=== PATIENT | male | born 1945 | race Caucasian/White ===

== ENCOUNTER 2017-01-10 09:34 | Inpatient (IN) | payer MEDICARE ==
[2017-01-10] VITALS (12 sets, daily range): BP systolic 70–140; BP diastolic 0–81
[~2017-01-10] VITALS: Ht 175.3 cm; Wt 116.1 kg
--- NOTE | ~2017-01-10 | PR ---
[place], [place] PROGRESS NOTE NAME: ISAAC FRANKLIN ACC #: [id number] UNIT #: [id number] ROOM: [facility] DOCTOR: GABRIELLA AGUIRRE MD BIRTHDATE: [birth year] DOS: 01/11/2017 CARDIOLOGY PROGRESS NOTE REASON FOR VISIT: Bradycardia and hypotension. SUBJECTIVE: The patient is feeling better. His blood pressures and heart rates are stable. Currently off his IV fluids and inotropic therapy. He denies any chest pain, dizziness or palpitations. No orthopnea. No fever and chills. No nausea, vomiting. No headaches. REVIEW OF SYSTEMS: Review of the 8 systems negative except as described above. PHYSICAL EXAMINATION: VITAL SIGNS: Blood pressure 150/87, pulse , respiratory rate is 14. GENERAL: Alert, comfortable, in no acute distress. HEENT: Pupils are round, equal. No jaundice. Tongue was moist and pharynx was clear. NECK: Supple, no distended neck veins, no carotid bruit. CHEST: Symmetrical, nontender. LUNGS: Clear to auscultation bilaterally. HEART: Regular rhythm, no S3. ABDOMEN: Benign, nontender. Bowel sounds normal. EXTREMITIES: Showed no edema. Distal pulses are palpable. SKIN: Warm and dry. No cyanosis, no clubbing. REVIEW OF DIAGNOSTIC TESTS: His labs and medications reviewed. His TSH 1.15. IMPRESSION: 1. Sinus bradycardia, resolved. Possibly due to his beta blockers. 2. Hypotension, possibly due to his overmedication, resolved. 3. Acute renal failure, improving. 4. Anemia. 5. Thrombocytopenia. RECOMMENDATIONS: 1. We will discontinue his Coreg which is his home medication. 2. We will start low dose Diovan and a low dose hydrochlorothiazide and monitor heart rates and blood pressures. 3. His blood pressures and heart rates are stable, he can be discharged home tomorrow and we will follow him in our office in 2-3 weeks. [place], [place] PROGRESS NOTE NAME: ISAAC FRANKLIN UNIT #: [id number] ROOM: [facility] DOCTOR: GABRIELLA AGUIRRE MD BIRTHDATE: [birth year] GABRIELLA AGUIRRE MD CM:PNTIM [id number] GABRIELLA AGUIRRE MD 01/13/17 0534 interface
--- NOTE | ~2017-01-10 | CON ---
[place], [place] REPORT OF CONSULTATION NAME: ISAAC FRANKLIN UNIT #: [id number] ROOM: [facility] DOCTOR: GABRIELLA AGUIRRE MD BIRTHDATE: [birth year] DOS: 01/10/2017 CARDIOLOGY CONSULTATION REASON FOR CONSULTATION: Bradycardia and hypotension. CLINICAL HISTORY: The patient is a 71-year-old gentleman with history of hypertension, diabetes, obstructive sleep apnea, came to the Emergency Room with dizziness and some unsteadiness of the feet. His blood pressure medications have been adjusted for his blood pressure control, a month ago he noted similar unsteadiness and dizziness, but no syncope. He was found to be significantly hypotensive and bradycardic in the Emergency Room and he was given IV fluids and was admitted to the hospital and the Cardiology was consulted. He denies any chest pain or palpitations. No syncope. No fever or chills. No cough or hemoptysis. No nausea, vomiting or diarrhea. No tingling, numbness or weakness. No headaches. No joint tenderness or swelling. REVIEW OF SYSTEMS: Review of the 8 systems negative except as mentioned above. PAST MEDICAL HISTORY: 1. Hypertension. 2. Diabetes type 2. 3. Gout. 4. Dyslipidemia. 5. Idiopathic thrombocytopenia. 6. Obstructive sleep apnea. 7. PTSD. 8. Benign prostatic hypertrophy. PAST SURGICAL HISTORY: 1. History of bilateral knee replacement. 2. Lumbar laminectomy. 3. Cataract surgery. 4. Repair of the left rotator cuff. SOCIAL HISTORY: The patient does not drink or smoke. Does not use illicit drugs. FAMILY HISTORY: Mother in her 80s from myocardial infarction. Brother has a myocardial infarction in his 50s. Father had a cancer and in his 80s. ALLERGIES: No known drug allergies. HOME MEDICATIONS: Reviewed. PHYSICAL EXAMINATION: VITAL SIGNS: Blood pressure 108/69, pulse ____, respiratory rate of 14. GENERAL: Alert, comfortable, in no acute distress. HEENT: Pupils are round and equal. No jaundice. Tongue was dry and pharynx [place], [place] REPORT OF CONSULTATION NAME: ISAAC FRANKLIN UNIT #: [id number] ROOM: [facility] DOCTOR: GABRIELLA AGUIRRE MD BIRTHDATE: [birth year] was also dry. NECK: Supple, no distended neck veins, no carotid bruits. Thyroid is not palpable. CHEST: Symmetrical, nontender. LUNGS: Clear to auscultation bilaterally. HEART: Regular rhythm. No S3. Grade 1/6 systolic murmur. No palpable thrills. ABDOMEN: Obese, nontender. Bowel sounds normal. EXTREMITIES: Showed trace edema. Distal pulses are palpable. SKIN: Warm and dry. NEUROLOGIC: The patient is alert, oriented. No focal neurologic deficit. RECTAL: Deferred. GENITOURINARY: Deferred. REVIEW OF DIAGNOSTIC TESTS: EKG showed normal sinus rhythm, rate of 44. His labs, CBC, chemistry reviewed. IMPRESSION: 1. Symptomatic bradycardia, possibly due to medications. 2. Mild hypotension, possibly due to medications. 3. Anemia. 4. Thrombocytopenia. 5. Morbid obesity. 6. Diabetes type 2. 7. Acute renal insufficiency. RECOMMENDATIONS: 1. Continue IV fluids. 2. Check his TSH to rule out hypothyroidism. 3. Check 2D echo for LV function and valvular function. 4. Hold his Diovan and head CT and we will raise them as his blood pressure tolerates. 5. Wean IV dopamine as his blood pressure tolerates. 6. Consider outpatient stress test when he is stable. 7. Risk factor modification for diet, exercise, weight loss discussed. 8. Once he is weaned off the IV Cardizem and heart rate and blood pressure are stable, resume low-dose Diovan and hydrochlorothiazide. 9. Possible discharge in next 24-48 hours. [place], [place] REPORT OF CONSULTATION NAME: RIGOBERTOISAAC Varsha UNIT #: [id number] ROOM: [facility] DOCTOR: GABRIELLA AGUIRRE MD BIRTHDATE: [birth year] GABRIELLA AGUIRRE MD CM:CONSTR:REPORT OF CONSULTATION 1145 01/11/17 548 interface
[~2017-01-10 09:34] MED LIST: ALBUTEROL0.09 MG/A2 INH; ALLOPURINOL100 MG PO; ALPHA LIPOIC A200 MG PO; ALPHA LIPOIC300 MG; ANTIVERT/2525 MG PO; APRESOLINE10 MG PO; ASPI-COR81 M1 PO; ASPIRIN325 M2 PO; ASPIRIN325 MG PO; AUGMENTIN 875875 MG PO; CARBIDOPA/LEVOD1 TA1 PO; CARVEDILOL12.5 MG PO; CARVEDILOL25 MG PO; CLONIDINE HCL0.2 MG PO; CLONIDINE0.2 MG; CLONIDINE0.2 MG PO; DAYPRO600 M1 PO; DICLOFENAC SOD75 MG PO; DIOVAN HCT 12.51 TA1 PO; DIOVAN160 M2 PO; DIOVAN320 MG; ENDOCET 650 MG-1 TAB; FISH OIL1000 MG; FLOMAX0.4 MG PO; FOLIC ACID800 MCG PO; Flovent 220 M220 MCG INH; GABAPENTIN100 M1; GABAPENTIN100 M2 PO; GLIPIZIDE2.5 MG PO; GLIPIZIDE5 MG PO; GUAFENESIN400 MG PO; Glimepiride1 MG PO; HYDR12.5C PO; HYDRALAZINE10 MG PO; HYDROCHLOROTHIA25 M1 PO; HYDROCHLOROTHIA25 MG; HYDROCODONE BIT1 T11 PO; LIPITOR80 MG PO; MELATONIN3 MG PO; NEURONTIN100 MG PO; OXYCODONE AND A1 TA3 PO; PERCOCET 325 MG1 TA2 PO; PREDNISONE10 MG PO; PREDNISONE50 MG PO; SERTRALINE HCL100 MG PO; SERTRALINE HYD100 MG PO; SERTRALINE HYDR50 MG PO; SIMVASTATIN40 MG; SIMVASTATIN80 MG PO; SPIRIVA RESPIMAT4 GM INH; SPIRIVA18 MCG PO; SYMBICORT1 AE1 INH; TRAZADONE HYDR100 MG PO; VENTOLIN H0.09 MG/AC INH; VIBRAMYCIN100 MG PO; VICODIN 5/500 505 MG PO; VICODIN 500 MG-1 TAB PO; VISTARIL25 MG PO; VITAMIN C1000 M2 PO; ZOCOR40 MG PO; ZOCOR80 MG PO; ZOFRAN ODT8 MG PO; ZYLOPRIM100 MG PO
[2017-01-10 10:15] LABS: BASO % 0.3 % (0.0-1.0); EOS # 0.1 10*3/uL (0.0-0.4); EOS % 1.3 % (1.0-4.0); HEMATOCRIT 37.9 % (42.0-52.0); HEMOGLOBIN 12.8 g/dl (14.0-18.0); LYMPH # 2.2 10*3/uL (1.3-4.4); LYMPH % 34.2 % (27.0-41.0); MEAN CELL VOLUME 92.7 fl (80.0-94.0); MEAN CORPUSCULAR HGB 31.3 pg (27.0-31.0); MEAN CORPUSCULAR HGB CONC 33.8 g/dl (33.0-37.0); MEAN PLATELET VOLUME 11.5 fl (9.6-12.3); MONO # 0.4 10*3/uL (0.1-1.0); NEUT # 3.7 10*3/uL (2.3-7.9); NEUT % 57.7 % (47.0-73.0); PLATELET COUNT AUTOMATED 112 10*3/uL (130-400); RED BLOOD COUNT 4.09 10*6/uL (4.50-5.90); RED CELL DISTRI WIDTH 13.3 % (0-14.5); WHITE BLOOD COUNT 6.3 10*3/uL (4.8-10.8)
[2017-01-10 10:25] LABS: INTERNATIONAL NORM RATIO 0.9 (2.0-3.5)
[2017-01-10 10:42] LABS: ALBUMIN 2.9 gm/dl (3.1-4.5); ALKALINE PHOSPHATASE 73 U/L (45-117); BILIRUBIN, TOTAL 1.2 mg/dl (0.2-1.0); BUN 33 mg/dl (7-24); CARBON DIOXIDE 30 mmol/L (21-32); CHLORIDE 99 mmol/L (98-107); CKMB 0.9 ng/ml (0.5-3.6); CPK 76 U/L (39-308); EST GLOM FILT AFRICAN AMERICAN 57 ml/min; GLUCOSE 327 mg/dL (65-99); MAGNESIUM 2.2 mg/dL (1.5-2.1); POTASSIUM 4.3 mmol/L (3.5-5.1); SGOT/AST 29 IU/L (3-35); SGPT/ALT 13 U/L (12-78); SODIUM 136 mmol/L (136-145); TOTAL PROTEIN 5.7 gm/dL (6.4-8.2)
[2017-01-10 10:43] LABS: C-REACTIVE PROTEIN < 0.29 MG/DL (0-0.3); TROPONIN I < 0.015 ng/ml (<0.045)
[2017-01-10] MEDS ORDERED: DIOVAN160 M2 PO (12:48)
[2017-01-10] MEDS ORDERED: Albuterol Sulfat3 ML INH (12:52)
[2017-01-11] VITALS (7 sets, daily range): BP systolic 101–156; BP diastolic 61–91
[2017-01-11 06:07] LABS: BASO % 0.2 % (0.0-1.0); EOS # 0.1 10*3/uL (0.0-0.4); EOS % 1.8 % (1.0-4.0); HEMATOCRIT 39.7 % (42.0-52.0); HEMOGLOBIN 13.2 g/dl (14.0-18.0); LYMPH # 1.3 10*3/uL (1.3-4.4); LYMPH % 24.7 % (27.0-41.0); MEAN CELL VOLUME 91.9 fl (80.0-94.0); MEAN CORPUSCULAR HGB 30.6 pg (27.0-31.0); MEAN CORPUSCULAR HGB CONC 33.2 g/dl (33.0-37.0); MEAN PLATELET VOLUME 10.4 fl (9.6-12.3); MONO # 0.4 10*3/uL (0.1-1.0); MONO % 7.2 % (3.0-9.0); NEUT # 3.6 10*3/uL (2.3-7.9); NEUT % 65.7 % (47.0-73.0); PLATELET COUNT AUTOMATED 98 10*3/uL (130-400); RED BLOOD COUNT 4.32 10*6/uL (4.50-5.90); RED CELL DISTRI WIDTH 13.3 % (0-14.5); WHITE BLOOD COUNT 5.4 10*3/uL (4.8-10.8)
[2017-01-11 06:37] LABS: ALBUMIN 3.1 gm/dl (3.1-4.5); BILIRUBIN, TOTAL 1.3 mg/dl (0.2-1.0); CARBON DIOXIDE 28 mmol/L (21-32); CHLORIDE 105 mmol/L (98-107); EST GLOM FILT AFRICAN AMERICAN > 60 ml/min; GLUCOSE 105 mg/dL (65-99); MAGNESIUM 2.1 mg/dL (1.5-2.1); PHOSPHOROUS 3.4 mg/dL (2.5-4.9); POTASSIUM 4.1 mmol/L (3.5-5.1); SGOT/AST 15 IU/L (3-35); SGPT/ALT 8 U/L (12-78); SODIUM 143 mmol/L (136-145); TOTAL PROTEIN 5.7 gm/dL (6.4-8.2)
[2017-01-11 06:46] LABS: ALKALINE PHOSPHATASE 73 U/L (45-117)
[2017-01-11 06:51] LABS: BUN 20 mg/dl (7-24)
[2017-01-11 07:03] LABS: INTERNATIONAL NORM RATIO 0.9 (2.0-3.5)
[2017-01-12] VITALS: BP 133/83
[2017-01-12 04:00] VITALS: BP 142/75
[2017-01-12 06:05] LABS: BUN 18 mg/dl (7-24); CARBON DIOXIDE 32 mmol/L (21-32); CHLORIDE 101 mmol/L (98-107); EST GLOM FILT AFRICAN AMERICAN > 60 ml/min; GLUCOSE 133 mg/dL (65-99); POTASSIUM 3.9 mmol/L (3.5-5.1); SODIUM 142 mmol/L (136-145)
[2017-01-12 06:06] LABS: BASO % 0.3 % (0.0-1.0); EOS # 0.1 10*3/uL (0.0-0.4); EOS % 1.6 % (1.0-4.0); HEMATOCRIT 40.3 % (42.0-52.0); HEMOGLOBIN 13.5 g/dl (14.0-18.0); LYMPH # 2.1 10*3/uL (1.3-4.4); LYMPH % 33.9 % (27.0-41.0); MEAN CELL VOLUME 92.4 fl (80.0-94.0); MEAN CORPUSCULAR HGB CONC 33.5 g/dl (33.0-37.0); MEAN PLATELET VOLUME 10.7 fl (9.6-12.3); MONO # 0.5 10*3/uL (0.1-1.0); MONO % 7.8 % (3.0-9.0); NEUT # 3.5 10*3/uL (2.3-7.9); NEUT % 56.1 % (47.0-73.0); PLATELET COUNT AUTOMATED 110 10*3/uL (130-400); RED BLOOD COUNT 4.36 10*6/uL (4.50-5.90); RED CELL DISTRI WIDTH 13.2 % (0-14.5); WHITE BLOOD COUNT 6.3 10*3/uL (4.8-10.8)
[2017-01-12 08:00] VITALS: BP 131/87
[2017-01-12] MEDS ORDERED: HYDR12.5C PO (09:34)
[2017-01-12] MEDS ORDERED: VALSARTAN80 MG PO (09:34)
== END 2017-01-12 10:44 | disposition home or self-care (01) | DRG 314 ==
LOC: ED 09:34 → EDHOLD 11:20 → ICCU 11:20
PROVIDERS: Emergency Medicine; Hospitalist; Student in an Organized Health Care Education/Training Program
DX: I95.9 Hypotension, unspecified (principal); N17.0 Acute kidney failure with tubular necrosis; E44.0 Moderate protein-calorie malnutrition; E11.49 Type 2 diabetes mellitus with other diabetic neurological complication; D69.6 Thrombocytopenia, unspecified; E66.01 Morbid (severe) obesity due to excess calories; E86.0 Dehydration; D64.9 Anemia, unspecified; R00.1 Bradycardia, unspecified; Z96.653 Presence of artificial knee joint, bilateral; M10.9 Gout, unspecified; F43.10 Post-traumatic stress disorder, unspecified; I10 Essential (primary) hypertension; F32.9 Major depressive disorder, single episode, unspecified; N40.0 Benign prostatic hyperplasia without lower urinary tract symptoms; G47.33 Obstructive sleep apnea (adult) (pediatric); E78.5 Hyperlipidemia, unspecified; Z98.49 Cataract extraction status, unspecified eye; Z82.49 Family history of ischemic heart disease and other diseases of the circulatory system; Z80.9 Family history of malignant neoplasm, unspecified; Z79.51 Long term (current) use of inhaled steroids; Z79.899 Other long term (current) drug therapy; Z68.36 Body mass index [BMI] 36.0-36.9, adult; T50.905A Adverse effect of unspecified drugs, medicaments and biological substances, initial encounter

== ENCOUNTER → 2017-01-24 | Outpatient (CLI) | payer MEDICARE ==
[~2017-01-24] MED LIST changes: +Albuterol Sulfat3 ML INH; +VALSARTAN80 MG PO
== END | disposition home or self-care (01) ==
LOC: LAB 12:42
DX: R53.83 Other fatigue (principal)

== ENCOUNTER 2017-01-29 23:23 | Inpatient (IN) | payer MEDICARE ==
[~2017-01-29] VITALS: Ht 175.3 cm; Wt 107.2 kg
--- NOTE | ~2017-01-29 | PR ---
[place], [place] PROGRESS NOTE NAME: [facility]AAC FRANKLIN [id number] UNIT #: [id number] ROOM: 416 DOCTOR: DENIS NGUYỄN MD,TEJINDER BIRTHDATE: [birth year] DOS: 01/31/2017 PULMONARY PROGRESS NOTE SUBJECTIVE: The patient has been noted comfortable at this time, sitting on the bed and noted marked improvement to the respiratory symptoms in last 24 hours with resolution of wheezing, coughing and shortness of breath. OBJECTIVE: VITAL SIGNS: Shows normal temperature this morning, respiratory rate 20, heart rate 87, blood pressure 137/89. Pulse oxygen saturation recorded on 2 L nasal cannula 94% saturation. HEENT: Chronic obesity. NECK: Supple. CARDIOVASCULAR: S1, S2 audible. LUNGS: Noted with minimal wheezing, no crackles. ABDOMEN: Soft, nontender. IMPRESSION: The patient with resolving acute exacerbation of bronchial asthma, most likely viral bronchitis. Possibility of allergen induced exacerbation of bronchial asthma has been considered as well. PLAN OF TREATMENT: The patient could be discharged home on tapering dose of prednisone, would not require any antibiotics. Other previous treatment plan to be continued as well. Usual care, other supportive therapy, plan of management and care. TEJINDER BARRIOS MD CM:PNTRANS [id number] TEJINDER NGUYỄN MD 02/01/17213 interface
--- NOTE | ~2017-01-29 | CON ---
[place], [place] REPORT OF CONSULTATION NAME: ISAAC FRANKLIN [facility] #: [id number] UNIT #: [id number] ROOM: 416 DOCTOR: DENIS NGUYỄN MDTEJINDER BIRTHDATE: [birth year] DOS: 01/30/2017 Consultation requested by the hospitalist services. REASON FOR CONSULTATION: Assess the patient for acute exacerbation of bronchial asthma. HISTORY OF PRESENT ILLNESS: A 71-year-old male who has been known to me from the past, has been noted frequent hospitalization in the last 3 months. The patient has been treated in this hospital in 12/2016, remained in the hospital from 01/10/2017 until 01/12/2017. The patient has been admitted to the hospital and managed for bradyarrhythmias with acute kidney injury and dehydration. The patient was treated and discharged home asymptomatic. The patient stated that he has been noted in the usual state of health until yesterday when he started with sudden onset of increased coughing with chest congestion and wheezing as well as shortness of breath. He came into the Emergency Room for further assessment. He denies symptoms of chest pain. Denies any symptoms of chest trauma. The patient has used his breathing treatment to help resolve the symptoms, but they did not work to resolve his respiratory status. He stated that he has been taking all of the previous prescription medications on a regular basis. REVIEW OF SYSTEMS: CONSTITUTIONAL: He does have symptoms of fatigue and tiredness. Denies symptoms of fever or chills. EYES: Denies any burning, redness, or tenderness. EARS, NOSE, THROAT: No sore throat, hoarseness, otalgia, postnasal drainage. CARDIOVASCULAR: Denies anginal pain, edema of the lower extremities or palpitations. GASTROINTESTINAL: Denies dysphagia, nausea, vomiting, diarrhea, abdominal pain, hematemesis, melena, or hematochezia. GENITOURINARY: Denies dysuria, suprapubic pain, hematuria. SKIN: No ulcers. No lesions or rashes. CENTRAL NERVOUS SYSTEM: Denies dizziness, headache, diplopia, seizures, syncopal episode. MUSCULOSKELETAL: Denies acute joint pain, redness, or tenderness. Remaining systems were reviewed. They were noted all negative. PAST MEDICAL HISTORY: 1. History of uncomplicated severe persistent bronchial asthma. 2. Chronic obesity. 3. Obstructive sleep apnea disorder diagnosed in 2012, currently being in the process of reassessment and management of sleep apnea. The patient with a sleep study pending to be done on 02/09/2017. 4. History of chronic obesity. 5. Coronary artery disease. 6. Essential hypertension. 7. Hyperlipidemia. 8. Past history of transient ischemic attack. 9. PTSD. [place], [place] REPORT OF CONSULTATION NAME: ISAAC FRANKLIN UNIT #: [id number] ROOM: 416 DOCTOR: DENIS NGUYỄN MD,TEJINDER BIRTHDATE: [birth year] 10. TIA. 11. Degenerative arthritis. 12. Allergic rhinitis. 13. Restless leg syndrome. SOCIAL HISTORY: The patient is , lifetime nonsmoker. Denies alcohol or illicit drug use at home, does not have any pets at home as well. PAST SURGICAL HISTORY: 1. Therapy bronchoscopy in 10/2016. 2. Cardiac catheterization. 3. Removal of the heel spur. 4. Bilateral total knee replacement, acute cervical fusion. 5. Lumbar laminectomy. FAMILY HISTORY: Noted for diabetes, coronary artery disease, and hypertension. MEDICATIONS: The medications which have been listed from home for the patient at the time of admission noted use of; 1. Ventolin HFA inhaler, albuterol sulfate 2.5 mg nebulizer 4 times a day p.r.n. for shortness of breath. 2. Fluticasone one spray each nostril daily. 3. Zyloprim 100 mg daily. 4. Aspirin 325 mg p.o. daily. 5. Levodopa, carbidopa at bedtime for the restless leg syndrome. 6. Coreg 6.25 mg p.o. b.i.d. 7. Neurontin 300 mg p.o. t.i.d. 8. Glipizide 2.5 mg p.o. b.i.d. 9. Hydrochlorothiazide 12.5 mg daily. 10. Sertraline daily. 11. Simvastatin 40 mg daily. 12. Flomax 0.4 mg at bedtime. 13. Valsartan 80 mg daily. 14. Singulair 10 mg daily. 15. Spiriva Respimat 1.25 mcg 2 inhalations daily. 16. Symbicort 160/4.5 two puffs b.i.d. DRUG ALLERGIES: No known drug allergies. PHYSICAL EXAMINATION: GENERAL: This is a 71-year-old white male who has been noted currently awake and alert without any distress. Height of 5 feet 9 inches, weight of 236 pounds. The BMI noted 34.9. VITAL SIGNS: Shows a normal temperature, respiratory rate of 20-28, heart rate 100-96, blood pressure 131/87-126/98. The pulse oxygen saturation of the patient recorded on 2 liters nasal cannula 93% saturation. HEENT: Examination shows head was atraumatic. Eyes nonicterus. NECK: Supple. CARDIOVASCULAR: S1, S2 audible. LUNGS: Diffuse expiratory wheezing, no crackles. [place], [place] REPORT OF CONSULTATION NAME: ISAAC FRANKLIN UNIT #: [id number] ROOM: [facility] DOCTOR: DENIS NGUYỄN MD,TEJINDER BIRTHDATE: [birth year] ABDOMEN: Soft. Moderate obesity, bowel sounds present. EXTREMITIES: Show no edema, clubbing, cyanosis. CENTRAL NERVOUS SYSTEM: Cranial nerves 2 through 12 intact. No focal deficit. MUSCULOSKELETAL: No deformities. SKIN: No lesions or rashes. LABORATORY DATA: CBC: WBC count 7.7, hemoglobin 13.7, hematocrit 39.6, platelet count were normal at 0.8% eosinophils. The lactic acid noted as 1.6. CMP of the patient was noted normal BUN and creatinine. Glucose 182. Remaining CK-MB and troponin for the patient were normal. The BMP of the patient's glucose 273 this morning, BUN and creatinine remains normal. Other electrolytes grossly normal. PT/PTT was normal this morning. CK-MB and troponin additional sets were noted normal. The chest x-ray 01/29/2017, the patient does not show any acute pulmonary infiltration or other abnormalities. IMPRESSION: 1. The patient who had been currently noted with recurrent acute exacerbation of bronchial asthma with unknown triggering effect. The possible consideration of aspirin sensitivity. The patient would be kept in consideration as well. 2. Possible exposure to some environmental allergens required further assessment as well. 3. Acute bronchitis of the patient noted whether virus or bacterial origin at this time was unknown. 4. Obstructive sleep apnea disorder, which has not been treated so far as the patient has not been able to get any equipment from the [facility] with reassessment was noted in progress in my office. 5. Frequent hospitalization. 6. Recent hospitalization bradycardia and acute dehydration with volume contraction and the renal failure, which has been noted currently resolved. PLAN OF TREATMENT: The patient has been getting IV Solu-Medrol for the patient that will be continued at the current dose of Solu-Medrol 60 mg q.8 hours, gradual reduction. Manage the respiratory symptoms for this patient based on the progression of the illness. Ordered IgE level for the patient for assessment of any allergy blurred. Discontinue the heparin for the patient at this time as well. Continuation of the other previous treatment plan of management. Addition of Singulair to the treatment, which has not been listed on his current medications list. Also, start the patient Dulera as an alternate to the Symbicort HFA inhaler. Further treatment changes will be done based on the progression of the illness. [place], [place] REPORT OF CONSULTATION NAME: ISAAC FRANKLIN UNIT #: [id number] ROOM: [facility] DOCTOR: TEJINDER PYLE MD BIRTHDATE: [birth year] TEJINDER BARRIOS MD CM:CONSTR:REPORT OF CONSULTATION 1354 01/31/17 0409 interface
[2017-01-29 23:29] VITALS: BP 146/110
[2017-01-29] MEDS ORDERED: VENTOLIN H0.09 MG/AC INH (23:36)
[2017-01-29] MEDS ORDERED: COREG6.25 MG PO (23:37)
[2017-01-29] MEDS ORDERED: FLUTICASON0.05 MG/AC NAS (23:40)
[2017-01-29] MEDS ORDERED: GLIPIZIDE XL2.5 M1 PO (23:41)
[2017-01-30] LABS: BASO % 0.3 % (0.0-1.0); EOS # 0.1 10*3/uL (0.0-0.4); EOS % 0.8 % (1.0-4.0); HEMATOCRIT 39.6 % (42.0-52.0); HEMOGLOBIN 13.7 g/dl (14.0-18.0); LYMPH # 2.6 10*3/uL (1.3-4.4); LYMPH % 33.2 % (27.0-41.0); MEAN CELL VOLUME 89.8 fl (80.0-94.0); MEAN CORPUSCULAR HGB 31.1 pg (27.0-31.0); MEAN CORPUSCULAR HGB CONC 34.6 g/dl (33.0-37.0); MONO # 0.8 10*3/uL (0.1-1.0); MONO % 9.7 % (3.0-9.0); NEUT # 4.3 10*3/uL (2.3-7.9); NEUT % 55.5 % (47.0-73.0); PLATELET COUNT AUTOMATED 158 10*3/uL (130-400); RED BLOOD COUNT 4.41 10*6/uL (4.50-5.90); WHITE BLOOD COUNT 7.7 10*3/uL (4.8-10.8)
[2017-01-30 00:17] LABS: ALBUMIN 3.6 gm/dl (3.1-4.5); ALKALINE PHOSPHATASE 90 U/L (45-117); BILIRUBIN, TOTAL 0.7 mg/dl (0.2-1.0); BUN 19 mg/dl (7-24); CARBON DIOXIDE 31 mmol/L (21-32); CHLORIDE 103 mmol/L (98-107); EST GLOM FILT AFRICAN AMERICAN > 60 ml/min; GLUCOSE 182 mg/dL (65-99); POTASSIUM 3.6 mmol/L (3.5-5.1); SGOT/AST 22 IU/L (3-35); SGPT/ALT 14 U/L (12-78); SODIUM 141 mmol/L (136-145); TOTAL PROTEIN 6.7 gm/dL (6.4-8.2)
[2017-01-30 00:18] LABS: TROPONIN I < 0.015 ng/ml (<0.045)
[2017-01-30 00:53] VITALS: BP 134/76
[2017-01-30 02:00] VITALS: BP 133/83
[2017-01-30 06:28] LABS: BASO % 0.2 % (0.0-1.0); HEMATOCRIT 39.7 % (42.0-52.0); HEMOGLOBIN 13.6 g/dl (14.0-18.0); IG # 0.1 10*3/uL (0.0-0.1); LYMPH # 0.8 10*3/uL (1.3-4.4); LYMPH % 13.4 % (27.0-41.0); MEAN CORPUSCULAR HGB 30.8 pg (27.0-31.0); MEAN CORPUSCULAR HGB CONC 34.3 g/dl (33.0-37.0); MEAN PLATELET VOLUME 10.8 fl (9.6-12.3); MONO # 0.1 10*3/uL (0.1-1.0); MONO % 1.8 % (3.0-9.0); NEUT # 4.7 10*3/uL (2.3-7.9); NEUT % 83.4 % (47.0-73.0); PLATELET COUNT AUTOMATED 147 10*3/uL (130-400); RED BLOOD COUNT 4.41 10*6/uL (4.50-5.90); RED CELL DISTRI WIDTH 13.9 % (0-14.5); WHITE BLOOD COUNT 5.7 10*3/uL (4.8-10.8)
[2017-01-30 06:43] LABS: CKMB 0.7 ng/ml (0.5-3.6); CPK 152 U/L (39-308)
[2017-01-30 06:44] LABS: BUN 19 mg/dl (7-24); CARBON DIOXIDE 29 mmol/L (21-32); CHLORIDE 103 mmol/L (98-107); EST GLOM FILT AFRICAN AMERICAN > 60 ml/min; FREE T4 0.89 ng/dl (0.76-1.46); GLUCOSE 273 mg/dL (65-99); MAGNESIUM 2.2 mg/dL (1.5-2.1); PHOSPHOROUS 2.2 mg/dL (2.5-4.9); POTASSIUM 3.9 mmol/L (3.5-5.1); SODIUM 140 mmol/L (136-145)
[2017-01-30 06:47] LABS: TROPONIN I < 0.015 ng/ml (<0.045)
[2017-01-30 06:50] LABS: THYROID STIM HORMONE (HS) 0.908 uIU/ml (0.358-4.75)
[2017-01-30 07:48] LABS: PROTHROMBIN TIME 10.1 SECONDS (9.0-12.4)
[2017-01-30 08:00] VITALS: BP 126/98
[2017-01-30 12:00] VITALS: BP 130/80
[2017-01-30 12:43] LABS: CKMB 1.1 ng/ml (0.5-3.6); CPK 126 U/L (39-308)
[2017-01-30 12:47] LABS: TROPONIN I < 0.015 ng/ml (<0.045)
[2017-01-30 16:00] VITALS: BP 140/88
[2017-01-30 18:21] LABS: CPK 123 U/L (39-308)
[2017-01-30 18:25] LABS: TROPONIN I < 0.015 ng/ml (<0.045)
[2017-01-30 20:00] VITALS: BP 126/73
[2017-01-31] VITALS: BP 146/87
[2017-01-31 08:00] VITALS: BP 137/89
[2017-01-31] MEDS ORDERED: PREDNISONE10 MG PO (10:15)
== END 2017-01-31 11:03 | disposition home or self-care (01) | DRG 189 ==
LOC: ED 23:23 → EDHOLD 01-30 00:30 → 4E 01-30 00:30
PROVIDERS: Internal Medicine; Nurse Practitioner Family
DX: J96.21 Acute and chronic respiratory failure with hypoxia (principal); E11.40 Type 2 diabetes mellitus with diabetic neuropathy, unspecified; E11.65 Type 2 diabetes mellitus with hyperglycemia; J45.901 Unspecified asthma with (acute) exacerbation; F33.0 Major depressive disorder, recurrent, mild; J45.41 Moderate persistent asthma with (acute) exacerbation; M1A.00X0 Idiopathic chronic gout, unspecified site, without tophus (tophi); G25.81 Restless legs syndrome; J20.8 Acute bronchitis due to other specified organisms; G47.33 Obstructive sleep apnea (adult) (pediatric); E78.00 Pure hypercholesterolemia, unspecified; I10 Essential (primary) hypertension; E78.5 Hyperlipidemia, unspecified; F43.10 Post-traumatic stress disorder, unspecified; E66.8 Other obesity; M19.90 Unspecified osteoarthritis, unspecified site; I25.10 Atherosclerotic heart disease of native coronary artery without angina pectoris; N40.0 Benign prostatic hyperplasia without lower urinary tract symptoms; Z96.653 Presence of artificial knee joint, bilateral; Z98.49 Cataract extraction status, unspecified eye; Z82.49 Family history of ischemic heart disease and other diseases of the circulatory system; Z80.9 Family history of malignant neoplasm, unspecified; Z79.82 Long term (current) use of aspirin; Z79.899 Other long term (current) drug therapy; Z86.73 Personal history of transient ischemic attack (TIA), and cerebral infarction without residual deficits; Z83.3 Family history of diabetes mellitus; Z68.34 Body mass index [BMI] 34.0-34.9, adult

== ENCOUNTER → 2017-02-02 | Outpatient (CLI) | payer MEDICARE ==
[~2017-02-02] MED LIST changes: +COREG6.25 MG PO; +FLUTICASON0.05 MG/AC NAS; +GLIPIZIDE XL2.5 M1 PO
== END | disposition home or self-care (01) ==
LOC: LAB 10:47
PROVIDERS: Internal Medicine Critical Care Medicine
DX: J30.9 Allergic rhinitis, unspecified (principal)

== ENCOUNTER 2017-03-03 01:25 | Inpatient (IN) | payer MEDICARE ==
[~2017-03-03] VITALS: Ht 175.2 cm; Wt 114.8 kg
[2017-03-03] VITALS (7 sets, daily range): BP systolic 106–154; BP diastolic 65–88
--- NOTE | ~2017-03-03 | PR ---
[place], [place] PROGRESS NOTE NAME: [facility] FRANKLIN [facility] [id number] UNIT #: [id number] ROOM: 512 DOCTOR: DENIS NGUYỄN MD,TEJINDER BIRTHDATE: [birth year] DOS: 03/04/2017 PULMONARY PROGRESS NOTE SUBJECTIVE: He has been noted with reduction of the inspiratory stridor for the patient, which was noted yesterday with reduction of symptoms of shortness of breath and cough. He has used the BiPAP intermittently as ordered. OBJECTIVE: VITAL SIGNS: Normal temperature, respiratory rate 18, heart rate 79, blood pressure 151/87. The pulse oxygen saturation on 3 liters nasal canula 98% saturation recorded. HEENT: Examination shows chronic obesity. NECK: Supple, short and obese. CARDIOVASCULAR SYSTEM: S1, S2 audible. LUNGS: Noted with scattered expiratory wheezing, no crackles. ABDOMEN: Soft, nontender. IMPRESSION: The patient who has been currently noted with stable respiratory status at present time with improving respiratory symptoms for the patient with exacerbation of bronchial asthma and expiratory stridor. PLAN OF TREATMENT: No changes in the plan of management, except the dose of Solu-Medrol has been greatly reduced today. Monitor respiratory symptoms in the next 24 hours. Continue the BiPAP for this patient as previously ordered. TEJINDER BARRIOS MD CM:PNTRANS [phone] TEJINDER NGUYỄN MD 03/05/170 interface
--- NOTE | ~2017-03-03 | CON ---
[place], [place] REPORT OF CONSULTATION [id number] UNIT #: [id number] ROOM: 512 DOCTOR: DENIS NGUYỄN MDTEJINDER BIRTHDATE: [birth year] DOS: 03/03/2017 PULMONARY CONSULTATION EVALUATION AND MANAGEMENT REASON FOR CONSULTATION: Assess the patient for symptoms of shortness of breath and wheezing. HISTORY OF PRESENT ILLNESS: A 71-year-old white male with known history of uncomplicated severe persistent bronchial asthma as well as obstructive sleep apnea disorder, presented to the Emergency Room this morning. The patient was reporting symptoms of having increased shortness of breath and wheezing, which occurred for this patient in the home. Symptoms are noted progressive worsening. The patient was complaining of symptoms of some nonproductive cough. Denies symptoms of pain in the chest, but some chest tightness was described. REVIEW OF SYSTEMS: CONSTITUTIONAL: Fatigue and tiredness noted without symptoms of fever or chills. EYES: Denies any burning, redness, or tenderness. EAR, NOSE, THROAT: No sore throat, hoarseness, otalgia, postnasal drainage. CARDIOVASCULAR: Denies anginal pain, edema or pain of the lower extremities. GASTROINTESTINAL: Denies dysphagia, nausea, vomiting, diarrhea, abdominal pain, hematemesis, melena, hematochezia. SKIN: No lesions or rashes. MUSCULOSKELETAL: Denies acute joint pain, redness, or tenderness. CENTRAL NERVOUS SYSTEM: Denies dizziness, headache, diplopia. Remaining systems were reviewed and they were noted all negative. PAST MEDICAL HISTORY: 1. Noted with previous hospitalization of the patient in 01/2017, managed and discharged on 01/31/2017 for the medical acute exacerbation of bronchial asthma. 2. History of uncomplicated severe persistent bronchial asthma. 3. Obstructive sleep apnea disorder diagnosis and treatment. The patient has been so far waiting for having a CPAP delivered to his home from the [employer]. 4. Coronary artery disease. 5. Essential hypertension. 6. Hyperlipidemia. 7. PTSD. 8. History of TIA. 9. Degenerative arthritis. 10. Allergic rhinitis for this patient. All the allergy panel for this patient so far tested noted negative in this hospital as an outpatient. 11. Restless legs syndrome. SOCIAL HISTORY: The patient is , lifetime nonsmoker. Denies history of alcohol use, denies illicit drug use. PAST SURGICAL HISTORY: 1. Therapeutic bronchoscopies in the past. [place], [place] REPORT OF CONSULTATION NAME: ISAAC FRANKLIN UNIT #: [id number] ROOM: 512 DOCTOR: DENIS NGUYỄN MD,TEJINDER BIRTHDATE: [birth year] 2. Cardiac catheterization. 3. Removal of heel spur. 4. Bilateral total knee replacements. 5. Cervical fusion. 6. Lumbar laminectomy. MEDICATIONS: Current administered medications noted use of Requip, valsartan, allopurinol, aspirin, Sinemet at that time, sertraline, Neurontin, Flomax, simvastatin, Coreg, glipizide, Dulera, Lovenox for DVT prophylaxis, Solu-Medrol 60 mg q. 8 hours, Mucinex, magnesium hydroxide, Levaquin, and other p.r.n. medications administration. DRUG ALLERGIES: No known drug allergies. PHYSICAL EXAMINATION: GENERAL: A 71-year-old male who has been currently noted with audible inspiratory sound for this patient as stridor. VITAL SIGNS: Height for the patient noted 5 feet 9 inches, weight 253 pounds, BMI 37. Normal temperature, respiratory rate 18-24, heart rate of 100-87 blood pressure , pulse oxygen saturation for the patient on 3 L nasal cannula normal at 100%. HEENT: Shows head was atraumatic. Eyes: No icterus. NECK: Supple. CARDIOVASCULAR: S1, S2 is audible. LUNGS: The patient was noted without any crackles. Scattered expiratory wheezing was noted, [id number] decreased breath sounds bilaterally. ABDOMEN: Soft, nontender with chronic severe obesity. EXTREMITIES: Obesity for this patient. CENTRAL NERVOUS SYSTEM: Cranial nerves 2-12 intact. No focal deficits. MUSCULOSKELETAL: No deformities. SKIN: Shows no lesions or rashes. LABORATORY DATA: CBC of patient this morning on admission was noted essentially normal WBC count and platelet count and eosinophils, hemoglobin 12.7 mildly decreased. The BMP of patient of 511 this morning, glucose 195, normal BUN and creatinine and the troponins. CMP of the patient repeated this morning, glucose of 220. The BUN and creatinine was normal. CK-MB, troponin of the patient 3 sets were noted all negative so far. The chest x-ray that was done for the patient shows hyperinflation, basilar areas of atelectasis. IMPRESSION: The patient who has been currently noted at this time with recurrence of bronchial asthma with inspiratory stridor, possibility of vocal cord dysfunction cannot be completely excluded. The patient has been assessed previously by Dr. Somers for the patient diagnosis excluded at that time. 2. The patient with history of obstructive sleep apnea disorder, still awaiting treatment to be started for that. All the allergy panel of the patient ____ was noted negative for this patient. 3. Chronic obesity as well and other history. PLAN OF TREATMENT: The patient will be started on the BiPAP to stabilize [place], [place] REPORT OF CONSULTATION NAME: ISAAC FRANKLIN UNIT #: [id number] ROOM: 512 DOCTOR: TEJINDER PYLE MD BIRTHDATE: [birth year] respiratory status. Continue the corticosteroid dose. The dose will be decreased gradually. Bronchodilator to be continued. The patient might need to be sent to a tertiary care facility for vocal cord dysfunction to be ruled out such as the [facility] [place] [facility] or [facility] for the patient by specialists who can assess him for that. In the meantime, continue other previous therapy, plan of management. Usual care. Supportive care, other medical treatment plan as in progress. Arrangements for the patient's delivery of the CPAP has been continued from our office. Thank you for allowing me to participate in the care of this patient. TEJINDER BARRIOS MD CM:CONSTR:REPORT OF CONSULTATION 1654 03/04/17 0706 interface
[~2017-03-03 01:25] MED LIST changes: -Albuterol Sulfat3 ML INH; +Albuterol Sulfat3 ML NEB
[2017-03-03] MEDS ORDERED: REQUIP0.5 MG PO (01:34)
[2017-03-03 01:59] LABS: BASO % 0.4 % (0.0-1.0); EOS # 0.1 10*3/uL (0.0-0.4); EOS % 1.2 % (1.0-4.0); HEMATOCRIT 36.3 % (42.0-52.0); HEMOGLOBIN 12.7 g/dl (14.0-18.0); LYMPH # 2.1 10*3/uL (1.3-4.4); LYMPH % 31.6 % (27.0-41.0); MEAN CELL VOLUME 90.5 fl (80.0-94.0); MEAN CORPUSCULAR HGB 31.7 pg (27.0-31.0); MEAN PLATELET VOLUME 10.4 fl (9.6-12.3); MONO # 0.6 10*3/uL (0.1-1.0); MONO % 9.3 % (3.0-9.0); NEUT # 3.8 10*3/uL (2.3-7.9); NEUT % 57.1 % (47.0-73.0); PLATELET COUNT AUTOMATED 142 10*3/uL (130-400); RED BLOOD COUNT 4.01 10*6/uL (4.50-5.90); RED CELL DISTRI WIDTH 12.9 % (0-14.5); WHITE BLOOD COUNT 6.7 10*3/uL (4.8-10.8)
[2017-03-03 02:16] LABS: BUN 14 mg/dl (7-24); CARBON DIOXIDE 30 mmol/L (21-32); CHLORIDE 105 mmol/L (98-107); EST GLOM FILT AFRICAN AMERICAN > 60 ml/min; GLUCOSE 195 mg/dL (65-99); POTASSIUM 3.7 mmol/L (3.5-5.1); SODIUM 144 mmol/L (136-145)
[2017-03-03 02:17] LABS: TROPONIN I < 0.015 ng/ml (<0.045)
[2017-03-03] MEDS ORDERED: SINEMET 25-1001 TA1 PO (03:51)
[2017-03-03 06:35] LABS: BASO % 0.2 % (0.0-1.0); EOS % 0.2 % (1.0-4.0); HEMOGLOBIN 12.6 g/dl (14.0-18.0); IG # 0.1 10*3/uL (0.0-0.1); LYMPH # 0.6 10*3/uL (1.3-4.4); MEAN CELL VOLUME 92.3 fl (80.0-94.0); MEAN CORPUSCULAR HGB 31.4 pg (27.0-31.0); MEAN CORPUSCULAR HGB CONC 34.1 g/dl (33.0-37.0); MEAN PLATELET VOLUME 10.1 fl (9.6-12.3); MONO # 0.1 10*3/uL (0.1-1.0); MONO % 2.9 % (3.0-9.0); NEUT # 4.1 10*3/uL (2.3-7.9); NEUT % 82.5 % (47.0-73.0); PLATELET COUNT AUTOMATED 137 10*3/uL (130-400); RED BLOOD COUNT 4.01 10*6/uL (4.50-5.90); RED CELL DISTRI WIDTH 12.8 % (0-14.5); WHITE BLOOD COUNT 4.9 10*3/uL (4.8-10.8)
[2017-03-03 06:44] LABS: PROTHROMBIN TIME 10.3 SECONDS (9.0-12.4)
[2017-03-03 06:47] LABS: CKMB 1.4 ng/ml (0.5-3.6); CPK 180 U/L (39-308)
[2017-03-03 06:52] LABS: TROPONIN I < 0.015 ng/ml (<0.045)
[2017-03-03 06:58] LABS: ALBUMIN 3.3 gm/dl (3.1-4.5); ALKALINE PHOSPHATASE 95 U/L (45-117); BILIRUBIN, TOTAL 0.5 mg/dl (0.2-1.0); BUN 13 mg/dl (7-24); CARBON DIOXIDE 29 mmol/L (21-32); CHLORIDE 107 mmol/L (98-107); EST GLOM FILT AFRICAN AMERICAN > 60 ml/min; GLUCOSE 220 mg/dL (65-99); MAGNESIUM 2.5 mg/dL (1.5-2.1); PHOSPHOROUS 1.4 mg/dL (2.5-4.9); POTASSIUM 4.1 mmol/L (3.5-5.1); SGOT/AST 24 IU/L (3-35); SGPT/ALT 22 U/L (12-78); SODIUM 144 mmol/L (136-145); TOTAL PROTEIN 6.5 gm/dL (6.4-8.2)
[2017-03-03 07:27] LABS: HEMOGLOBIN A1c 7.5 % (4.8-5.6)
[2017-03-03 12:19] LABS: CKMB 1.6 ng/ml (0.5-3.6); CPK 182 U/L (39-308)
[2017-03-03 12:20] LABS: TROPONIN I < 0.015 ng/ml (<0.045)
[2017-03-04] VITALS (8 sets, daily range): BP systolic 126–162; BP diastolic 68–91
[2017-03-04 06:59] LABS: HEMOGLOBIN 11.1 g/dl (14.0-18.0); IG # 0.1 10*3/uL (0.0-0.1); LYMPH # 0.7 10*3/uL (1.3-4.4); MEAN CELL VOLUME 91.4 fl (80.0-94.0); MEAN CORPUSCULAR HGB 30.7 pg (27.0-31.0); MEAN CORPUSCULAR HGB CONC 33.6 g/dl (33.0-37.0); MEAN PLATELET VOLUME 10.9 fl (9.6-12.3); MONO # 0.4 10*3/uL (0.1-1.0); MONO % 4.4 % (3.0-9.0); NEUT # 7.9 10*3/uL (2.3-7.9); NEUT % 86.6 % (47.0-73.0); PLATELET COUNT AUTOMATED 137 10*3/uL (130-400); RED BLOOD COUNT 3.61 10*6/uL (4.50-5.90); WHITE BLOOD COUNT 9.1 10*3/uL (4.8-10.8)
[2017-03-05] VITALS: BP 140/82
[2017-03-05 08:00] VITALS: BP 160/72
[2017-03-05 12:00] VITALS: BP 155/78
[2017-03-05] MEDS ORDERED: PREDNISONE10 MG PO (13:43)
[2017-03-05] MEDS ORDERED: LEVAQUIN500 M2 PO (13:43)
[2017-03-05] MEDS ORDERED: DULE1ARO INH (13:43)
== END 2017-03-05 13:58 | disposition home or self-care (01) | DRG 871 ==
LOC: ED 01:25 → 5E 02:31 → EDHOLD 02:31 → 5E 02:35
PROVIDERS: Emergency Medicine Emergency Medical Services; Internal Medicine
PROC: 5A09357 Assistance with Respiratory Ventilation, Less than 24 Consecutive Hours, Continuous Positive Airway Pressure (ICD-10-PCS; principal; 2017-03-03)
DX: A41.9 Sepsis, unspecified organism (principal); J18.9 Pneumonia, unspecified organism; J96.00 Acute respiratory failure, unspecified whether with hypoxia or hypercapnia; D69.3 Immune thrombocytopenic purpura; E44.0 Moderate protein-calorie malnutrition; E11.42 Type 2 diabetes mellitus with diabetic polyneuropathy; E11.65 Type 2 diabetes mellitus with hyperglycemia; J45.51 Severe persistent asthma with (acute) exacerbation; E83.39 Other disorders of phosphorus metabolism; D64.9 Anemia, unspecified; I10 Essential (primary) hypertension; E66.9 Obesity, unspecified; F43.10 Post-traumatic stress disorder, unspecified; N40.0 Benign prostatic hyperplasia without lower urinary tract symptoms; G47.33 Obstructive sleep apnea (adult) (pediatric); G25.81 Restless legs syndrome; M10.9 Gout, unspecified; E78.00 Pure hypercholesterolemia, unspecified; F32.9 Major depressive disorder, single episode, unspecified; Z96.653 Presence of artificial knee joint, bilateral; Z98.49 Cataract extraction status, unspecified eye; Z82.49 Family history of ischemic heart disease and other diseases of the circulatory system; Z80.9 Family history of malignant neoplasm, unspecified; Z79.51 Long term (current) use of inhaled steroids; Z79.82 Long term (current) use of aspirin; Z79.899 Other long term (current) drug therapy; Z68.37 Body mass index [BMI] 37.0-37.9, adult

== ENCOUNTER 2017-03-14 17:03 | Inpatient (IN) | payer MEDICARE ==
[~2017-03-14] VITALS: Ht 175.2 cm; Wt 116.4 kg
--- NOTE | ~2017-03-14 | PR ---
[place], [place] PROGRESS NOTE NAME: ISAAC FRANKLIN UNIT #: [id number] ROOM: 404 DOCTOR: TEJINDER PYLE MD BIRTHDATE: [birth year] DOS: 03/16/2017 PULMONARY PROGRESS NOTE SUBJECTIVE: The patient has used the BiPAP last night and noted reduction of the respiratory symptom. The inspiratory stridor of the patient noted better this morning. Shortness of breath, cough and wheezing of the patient all resolving progressively. OBJECTIVE: VITAL SIGNS: For the patient which were recorded shows the temperature of the patient was noted as normal. The respiratory rate of the patient recorded as 20. The heart rate for the patient was noted as 84. The blood pressure 144/78. The pulse oxygen saturation recorded as room air 95% saturation. HEENT: Chronic obesity. NECK: Supple. Head was atraumatic. CARDIOVASCULAR SYSTEM: S1, S2 audible. LUNGS: Moderately reduced breath sounds noted with mild to moderate expiratory wheezing, decreased from previous examination. ABDOMEN: Soft, nontender. IMPRESSION: 1. The patient who has been currently noted with recurrent acute exacerbation of bronchial asthma, possibility of superimposed gastroesophageal reflux. 2. Obstructive sleep apnea disorder, so far untreated for the patient waiting for his CPAP delivery in-home from the [employer]. PLAN OF TREATMENT: Decrease the Solu-Medrol 40 mg b.i.d. Monitor respiratory status. Continue the BiPAP at nighttime and p.r.n. during the daytime as well. Continue bronchodilator treatment and plan of management. Possible consideration of discharge home in the home setting will be done. Continue with the Protonix for the patient twice a day for this patient for suspected gastroesophageal resulting in recurrent exacerbation of bronchial asthma. [place], [place] PROGRESS NOTE NAME: ISAAC FRANKLIN UNIT #: [id number] ROOM: 404 DOCTOR: TEJINDER PYLE MD BIRTHDATE: [birth year] TEJINDER BARRIOS MD CM:PNTRANS 1006 1 TEJINDER NGUYỄN MD 03/17/17241 interface
--- NOTE | ~2017-03-14 | PR ---
[place], [place] PROGRESS NOTE [facility] [id number] UN[facility] #: [id number] ROOM: 404 DOCTOR: DENIS NGUYỄN MD,TEJINDER BIRTHDATE: [birth year] DOS: 03/17/2017 PULMONARY PROGRESS NOTE SUBJECTIVE: He has been doing very well. The patient with continued reduction and improvement in respiratory complaints, coughing, shortness breath. The wheezing has been improving. He has used the BiPAP last night. OBJECTIVE: VITAL SIGNS: Normal temperature, respiratory rate 18, heart rate 74, blood pressure 146/90. The pulse oxygen saturation on the BiPAP was 97% saturation. HEENT: Showed no new change. NECK: Supple. CARDIOVASCULAR: S1, S2 audible. LUNGS: The patient was noted without any crackles. Occasional wheezing. ABDOMEN: Soft, nontender. LABORATORY DATA: Blood culture for the patient from 03/03/2017 which was done on previous admission showed no bacterial growth. Blood culture from 03/14/2017 showed no bacterial growth as well. Final culture results were pending. IMPRESSION: 1. Progressive resolution of acute exacerbation of bronchial asthma and acute bronchitis. 2. Obstructive sleep apnea disorder. PLAN OF TREATMENT: Continue the current plan of therapy for this patient. The patient could be discharged home today on tapering prednisone and use of the medication such as Protonix or omeprazole twice a day dosing. Other previous treatment plan of management, outpatient followup as previously scheduled. TEJINDER BARRIOS MD CM:PNTRANS [id number] TEJINDER NGUYỄN MD 03/18/17 1327 interface
--- NOTE | ~2017-03-14 | CON ---
[place], [place] REPORT OF CONSULTATION NAME: ISAAC FRANKLIN [facility] #: [id number] UNIT #: [id number] ROOM: 404 DOCTOR: TEJINDER PYLE MD BIRTHDATE: [birth year] DOS: 03/15/2017 CONSULTATION REQUESTED BY: Hospitalist services. REASON FOR CONSULTATION: For assessment of recurrent acute exacerbation of bronchial asthma. HISTORY OF PRESENT ILLNESS: This is a 71-year-old white male who has been known to me from the past. The patient has been hospitalized several times for the similar problem. The patient stated he was noted in usual state of health. He was trying to clean his pontoon boat to go to the [place]. As he bend forward, he has developed symptoms of increased coughing with shortness of breath. The patient's symptoms were present 2 days prior to admission to the hospital. He has been taking the breathing treatments in the home setting for this patient and not responding to the treatment by that. He took about five breathing treatment at midnight to help resolve the current symptoms, but the symptoms remained persistent and then later on noted progressive. He came to the Emergency Room and had been hospitalized on 03/14/2017. He was still noted with symptoms of cough, which has been noted intermittent with some respiratory distress and wheezing including inspiratory stridor which has been heard previously as well at times. REVIEW OF SYSTEMS: CONSTITUTIONAL: Fatigue and tiredness noted without symptoms of fever or chills. EYES: Denies any burning, redness, or tenderness. EARS, NOSE, THROAT SYMPTOMS: No sore throat, hoarseness, otalgia, postnasal drainage. CARDIOVASCULAR: Denies anginal pain, edema or pain of the lower extremities. GASTROINTESTINAL: Denies dysphagia, nausea, vomiting, diarrhea, abdominal pain. He does not have any gross symptoms of gastroesophageal reflux. GENITOURINARY SYMPTOMS: Denies dysuria, suprapubic pain, hematuria. MUSCULOSKELETAL: Denies acute joint pain, redness, or tenderness. CENTRAL NERVOUS SYSTEM: Denies dizziness, headache, diplopia or seizures. Remaining systems were reviewed and they were noted all negative. PAST MEDICAL HISTORY: 1. Uncomplicated severe persistent bronchial asthma with recurrent flare up. 2. Obstructive sleep apnea disorder. 3. Coronary artery disease. 4. Essential Hypertension. 5. Hyperlipidemia. 6. PTSD. 7. TIA. 8. Degenerative arthritis. 9. History of allergic rhinitis, unspecified. 10. Restless legs syndrome. PAST SURGICAL HISTORY: 1. Therapeutic bronchoscopies in the past. [place], [place] REPORT OF CONSULTATION NAME: ISAAC FRANKLIN UNIT #: [id number] ROOM: [facility] DOCTOR: DENIS NGUYỄN MD,TEJINDER BIRTHDATE: [birth year] 2. Cardiac catheterization. 3. Removal of heel spur. 4. Total knee replacement. 5. Cervical fusion. 6. Lumbar laminectomy. SOCIAL HISTORY: The patient is , lifetime nonsmoker. Denies any alcohol use or any illicit drug use. MEDICATIONS: Current administered medications were noted as use of frequent, hydrochlorothiazide, Diovan, allopurinol, aspirin, Lovenox for DVT prophylaxis, Coreg, Dulera, Zoloft, gabapentin, Flomax, simvastatin, IV Solu-Medrol 40 mg 8 hours and Levaquin. DRUG ALLERGIES: The patient was noted as allergies to the Restoril causing hallucinations. PHYSICAL EXAMINATION: GENERAL: A 71-year-old white male currently noted awake and alert, noted with significant severe episode of cough for this patient with some distress because of that. VITAL SIGNS: Height of 5 feet 9 inches, weight of 256 pounds, BMI 37.9. Vital signs of the patient which are recorded shows normal temperature, respiratory rate 20-22, heart rate of 93-103, blood pressure 119/73-160/100. The pulse oxygen saturation on room air 92% saturation. HEENT: Head is atraumatic. Eyes nonicterus. NECK: Supple. CARDIOVASCULAR: S1, S2 audible. LUNGS: Showed decreased breath sound, diffuse expiratory wheezing, moderate severity. ABDOMEN: Soft, nontender. Bowel sounds present. CENTRAL NERVOUS SYSTEM: Cranial nerves 2 through 12 intact. No focal deficits. MUSCULOSKELETAL: No deformities or lesions. SKIN: Showed no ulcers or rashes. LABORATORY DATA: CBC of the patient on 03/14/2017 was noted WBC count 13.3, remaining CBC normal. PT/PTT was noted as normal yesterday. CMP yesterday showed glucose 347, BUN 40, creatinine 1.29. Total protein 6.1, albumin 2.1. CK-MB, troponin yesterday and this morning to be assessed normal. CMP this morning, glucose 282, BUN 31, creatinine was normal. PT/INR was noted as 1.0 today. CBC this morning, hemoglobin 13.8, hematocrit 41.2, platelet count of 141,000, 95% segmented neutrophils. Chest x-ray, 1 view, which were done in the Emergency Room shows no acute abnormalities. IMPRESSION: 1. The patient with recurrent acute exacerbation of bronchial asthma. Trigger factor to be considered possibility of asymptomatic, gastroesophageal reflux, recurrent, possibly aspiration and current exacerbation of bronchial asthma would be one of the factor to be considered. 2. The patient with acute bronchitis viral or bacterial at this time, unclear. [place], [place] REPORT OF CONSULTATION NAME: ISAAC FRANKLIN UNIT #: [id number] ROOM: 404 DOCTOR: DENIS NGUYỄN MD,TEJINDER BIRTHDATE: [birth year] 3. History of allergic rhinitis. 4. Obstructive sleep apnea disorder. 5. Recurrent hospitalization. 6. History of essential hypertension. 7. Hyperglycemia was noted as well on this admission related to possibility of stress and other factors. PLAN OF TREATMENT: The patient has been ordered the BiPAP to help improve the distress, settings of 06/06. BiPAP could be used p.r.n. during the day and continuous at nighttime that will also manage his sleep apnea disorder. Continuation of the current bronchodilators and use of the corticosteroids. Start the patient empirically on Protonix 40 mg b.i.d. to help minimize the gastroesophageal reflux that may be one contributing factor, possibility to be considered. All other supportive therapy, plan of management. May consider discontinuing the antibiotics for this patient as well. Ordered the viral panel for this of the respiratory secretions as well to rule out the viral etiology for the patient's current acute exacerbation. Usual care. All other supportive therapy, plan and management and other treatment. Thanks for allowing me to participate in the care of this patient. TEJINDER BARRIOS MD CM:CONSTR:REPORT OF CONSULTATION 1427 03/16/17 1001 interface
[~2017-03-14 17:03] MED LIST changes: +DULE1ARO INH; +LEVAQUIN500 M2 PO; +REQUIP0.5 MG PO; +SINEMET 25-1001 TA1 PO
[2017-03-14 17:35] VITALS: BP 138/100
[2017-03-14 18:07] LABS: BASO % 0.1 % (0.0-1.0); IG # 0.1 10*3/uL (0.0-0.1); LYMPH # 1.4 10*3/uL (1.3-4.4); LYMPH % 10.5 % (27.0-41.0); MEAN CELL VOLUME 92.9 fl (80.0-94.0); MEAN CORPUSCULAR HGB CONC 33.3 g/dl (33.0-37.0); MEAN PLATELET VOLUME 10.5 fl (9.6-12.3); MONO # 0.7 10*3/uL (0.1-1.0); MONO % 5.4 % (3.0-9.0); NEUT # 11.1 10*3/uL (2.3-7.9); NEUT % 83.4 % (47.0-73.0); PLATELET COUNT AUTOMATED 150 10*3/uL (130-400); RED BLOOD COUNT 4.52 10*6/uL (4.50-5.90); RED CELL DISTRI WIDTH 13.1 % (0-14.5); WHITE BLOOD COUNT 13.3 10*3/uL (4.8-10.8)
[2017-03-14 18:17] LABS: PROTHROMBIN TIME 10.1 SECONDS (9.0-12.4)
[2017-03-14 18:23] LABS: ALBUMIN 3.2 gm/dl (3.1-4.5); ALKALINE PHOSPHATASE 105 U/L (45-117); BILIRUBIN, TOTAL 0.6 mg/dl (0.2-1.0); BUN 40 mg/dl (7-24); CARBON DIOXIDE 29 mmol/L (21-32); CHLORIDE 101 mmol/L (98-107); CKMB 1.6 ng/ml (0.5-3.6); CPK 81 U/L (39-308); EST GLOM FILT AFRICAN AMERICAN > 60 ml/min; GLUCOSE 347 mg/dL (65-99); MAGNESIUM 2.5 mg/dL (1.5-2.1); POTASSIUM 4.4 mmol/L (3.5-5.1); SGOT/AST 13 IU/L (3-35); SGPT/ALT 27 U/L (12-78); SODIUM 137 mmol/L (136-145); TOTAL PROTEIN 6.1 gm/dL (6.4-8.2)
[2017-03-14 18:24] LABS: C-REACTIVE PROTEIN < 0.29 MG/DL (0-0.3); TROPONIN I < 0.015 ng/ml (<0.045)
[2017-03-14 19:45] VITALS: BP 137/83
[2017-03-14 20:00] VITALS: BP 153/91
[2017-03-14] MEDS ORDERED: SYMBICORT1 AER INH (21:30)
[2017-03-15] VITALS: BP 134/92
[2017-03-15 06:27] LABS: HEMATOCRIT 41.2 % (42.0-52.0); HEMOGLOBIN 13.8 g/dl (14.0-18.0); MEAN CELL VOLUME 92.8 fl (80.0-94.0); MEAN CORPUSCULAR HGB 31.1 pg (27.0-31.0); MEAN CORPUSCULAR HGB CONC 33.5 g/dl (33.0-37.0); MEAN PLATELET VOLUME 10.6 fl (9.6-12.3); PLATELET COUNT AUTOMATED 141 10*3/uL (130-400); RED BLOOD COUNT 4.44 10*6/uL (4.50-5.90); RED CELL DISTRI WIDTH 12.7 % (0-14.5); WHITE BLOOD COUNT 10.4 10*3/uL (4.8-10.8)
[2017-03-15 07:05] LABS: ALBUMIN 3.2 gm/dl (3.1-4.5); BUN 31 mg/dl (7-24); CARBON DIOXIDE 27 mmol/L (21-32); CHLORIDE 102 mmol/L (98-107); CHOLESTEROL 133 mg/dL (<200); EST GLOM FILT AFRICAN AMERICAN > 60 ml/min; GLUCOSE 282 mg/dL (65-99); MAGNESIUM 2.1 mg/dL (1.5-2.1); PHOSPHOROUS 3.4 mg/dL (2.5-4.9); POTASSIUM 4.2 mmol/L (3.5-5.1); SGOT/AST 11 IU/L (3-35); SGPT/ALT 25 U/L (12-78); SODIUM 136 mmol/L (136-145); TOTAL PROTEIN 6.2 gm/dL (6.4-8.2); TRIGLYCERIDES 54 mg/dl (<150); VLDL CHOLESTEROL 11 mg/dL (6-40)
[2017-03-15 07:07] LABS: ALKALINE PHOSPHATASE 80 U/L (45-117); BILIRUBIN, TOTAL 0.9 mg/dl (0.2-1.0); HDL CHOLESTEROL 70 mg/dl (40-60); LDL CHOLESTEROL 52 mg/dL (9-159)
[2017-03-15 07:10] LABS: PROTHROMBIN TIME 10.8 SECONDS (9.0-12.4)
[2017-03-15 07:32] LABS: LYMPHOCYTE # 0.3 10*3/uL (1.3-4.4); MONOCYTE # 0.1 10*3/uL (0.1-1.0); MYELOCYTES 1 % (0-0); NEUTROPHIL # 9.9 10*3/uL (2.3-7.9); NEUTROPHILS 95 % (47-73); PLATELET SUFFICIENCY NORMAL (NORMAL); TOTAL CELLS COUNTED 100 #CELLS
[2017-03-15 08:00] VITALS: BP 160/100
[2017-03-15 08:22] LABS: HEMOGLOBIN A1c 7.6 % (4.8-5.6)
[2017-03-15 08:23] LABS: FOLIC ACID 17.38 ng/mL (>5.38); VITAMIN D, 25-HYDROXY 19.7 ng/mL (30-100)
[2017-03-15 11:53] VITALS: BP 119/73
[2017-03-15 16:00] VITALS: BP 120/69
[2017-03-15 20:00] VITALS: BP 124/71; BP 154/93
[2017-03-16] VITALS: BP 157/87
[2017-03-16 08:00] VITALS: BP 144/78
[2017-03-16 12:04] VITALS: BP 144/87
[2017-03-16 16:00] VITALS: BP 146/79
[2017-03-16 20:00] VITALS: BP 145/90
[2017-03-17] VITALS: BP 154/89
[2017-03-17 08:00] VITALS: BP 146/90
[2017-03-17] MEDS ORDERED: PREDNISONE10 MG PO (09:49)
[2017-03-17] MEDS ORDERED: LEVAQUIN500 M2 PO (09:49)
[2017-03-17] MEDS ORDERED: D-1000 185 MG-11 TAB PO (09:49)
[2017-03-17] MEDS ORDERED: PANTOPRAZOLE SO40 MG PO (10:14)
[2017-03-17 12:00] VITALS: BP 138/83
[2017-03-19 00:09] LABS: INFLUENZA B Negative (Negative); METAPNEUMOVIRUS Negative (Negative)
== END 2017-03-17 14:24 | disposition home or self-care (01) | DRG 871 ==
LOC: ED 17:03 → 4E 18:20 → EDHOLD 18:20 → 4E 18:51
PROVIDERS: Emergency Medicine; Internal Medicine Critical Care Medicine; Student in an Organized Health Care Education/Training Program
DX: A41.9 Sepsis, unspecified organism (principal); J18.9 Pneumonia, unspecified organism; D69.3 Immune thrombocytopenic purpura; E44.0 Moderate protein-calorie malnutrition; E11.49 Type 2 diabetes mellitus with other diabetic neurological complication; J45.51 Severe persistent asthma with (acute) exacerbation; E11.65 Type 2 diabetes mellitus with hyperglycemia; E83.41 Hypermagnesemia; N40.0 Benign prostatic hyperplasia without lower urinary tract symptoms; F32.9 Major depressive disorder, single episode, unspecified; I10 Essential (primary) hypertension; K21.9 Gastro-esophageal reflux disease without esophagitis; M10.9 Gout, unspecified; E66.9 Obesity, unspecified; E78.00 Pure hypercholesterolemia, unspecified; G47.33 Obstructive sleep apnea (adult) (pediatric); F43.10 Post-traumatic stress disorder, unspecified; M19.90 Unspecified osteoarthritis, unspecified site; G25.81 Restless legs syndrome; Z96.653 Presence of artificial knee joint, bilateral; G47.00 Insomnia, unspecified; E55.9 Vitamin D deficiency, unspecified; Z86.73 Personal history of transient ischemic attack (TIA), and cerebral infarction without residual deficits; Z68.37 Body mass index [BMI] 37.0-37.9, adult; Z88.8 Allergy status to other drugs, medicaments and biological substances; Z82.49 Family history of ischemic heart disease and other diseases of the circulatory system; Z80.8 Family history of malignant neoplasm of other organs or systems; Z83.3 Family history of diabetes mellitus

== ENCOUNTER 2017-04-18 16:12 | Inpatient (IN) | payer MEDICARE ==
[~2017-04-18] VITALS: Ht 175.3 cm; Wt 115.9 kg
[~2017-04-18 16:12] MED LIST changes: +D-1000 185 MG-11 TAB PO; +PANTOPRAZOLE SO40 MG PO; +SYMBICORT1 AER INH
[2017-04-18 16:17] VITALS: BP 140/82
[2017-04-18 16:43] LABS: BASO % 0.4 % (0.0-1.0); EOS % 0.6 % (1.0-4.0); HEMATOCRIT 34.3 % (42.0-52.0); HEMOGLOBIN 11.8 g/dl (14.0-18.0); LYMPH # 1.6 10*3/uL (1.3-4.4); LYMPH % 32.9 % (27.0-41.0); MEAN CORPUSCULAR HGB 31.3 pg (27.0-31.0); MEAN CORPUSCULAR HGB CONC 34.4 g/dl (33.0-37.0); MEAN PLATELET VOLUME 10.7 fl (9.6-12.3); MONO # 0.6 10*3/uL (0.1-1.0); MONO % 11.8 % (3.0-9.0); NEUT # 2.7 10*3/uL (2.3-7.9); NEUT % 53.5 % (47.0-73.0); PLATELET COUNT AUTOMATED 133 10*3/uL (130-400); RED BLOOD COUNT 3.77 10*6/uL (4.50-5.90); RED CELL DISTRI WIDTH 12.8 % (0-14.5)
[2017-04-18 16:56] VITALS: BP 126/81
[2017-04-18 16:57] LABS: ALBUMIN 3.2 gm/dl (3.1-4.5); ALKALINE PHOSPHATASE 84 U/L (45-117); BILIRUBIN, TOTAL 0.7 mg/dl (0.2-1.0); BUN 24 mg/dl (7-24); CARBON DIOXIDE 29 mmol/L (21-32); CHLORIDE 104 mmol/L (98-107); EST GLOM FILT AFRICAN AMERICAN > 60 ml/min; GLUCOSE 181 mg/dL (65-99); POTASSIUM 4.1 mmol/L (3.5-5.1); SGOT/AST 20 IU/L (3-35); SGPT/ALT 7 U/L (12-78); SODIUM 142 mmol/L (136-145); TOTAL PROTEIN 6.4 gm/dL (6.4-8.2)
[2017-04-18 18:33] VITALS: BP 118/77
[2017-04-18 19:57] VITALS: BP 148/87
[2017-04-18 20:22] LABS: ABG BASE EXCESS 1.1 mmol/L (-2.0-2.0); ABG CO2 CONTENT 26.8 mmol/L (23-27); ABG HCO3 25.5 mmol/l (22-26); ABG TEMPERATURE 97.9 F (98.0-99.0); ARTERIAL BLOOD GAS PH 7.41 (7.35-7.45); ARTERIAL BLOOD GAS PO2 66.5 mmHg (80-90)
[2017-04-18 21:35] VITALS: BP 146/84
[2017-04-19] VITALS: BP 144/87
[2017-04-19 04:00] VITALS: BP 145/88
[2017-04-19 05:57] LABS: HEMATOCRIT 34.7 % (42.0-52.0); IG # 0.1 10*3/uL (0.0-0.1); LYMPH # 0.7 10*3/uL (1.3-4.4); LYMPH % 11.2 % (27.0-41.0); MEAN CELL VOLUME 90.6 fl (80.0-94.0); MEAN CORPUSCULAR HGB 31.3 pg (27.0-31.0); MEAN CORPUSCULAR HGB CONC 34.6 g/dl (33.0-37.0); MEAN PLATELET VOLUME 10.9 fl (9.6-12.3); MONO # 0.1 10*3/uL (0.1-1.0); MONO % 1.8 % (3.0-9.0); NEUT # 5.1 10*3/uL (2.3-7.9); PLATELET COUNT AUTOMATED 143 10*3/uL (130-400); RED BLOOD COUNT 3.83 10*6/uL (4.50-5.90); RED CELL DISTRI WIDTH 12.8 % (0-14.5)
[2017-04-19 06:04] LABS: BUN 23 mg/dl (7-24); CARBON DIOXIDE 27 mmol/L (21-32); CHLORIDE 101 mmol/L (98-107); EST GLOM FILT AFRICAN AMERICAN > 60 ml/min; GLUCOSE 280 mg/dL (65-99); MAGNESIUM 2.1 mg/dL (1.5-2.1); PHOSPHOROUS 2.7 mg/dL (2.5-4.9); POTASSIUM 4.1 mmol/L (3.5-5.1); SODIUM 138 mmol/L (136-145)
[2017-04-19 08:00] VITALS: BP 132/76
[2017-04-19 16:00] VITALS: BP 121/76
[2017-04-19 20:00] VITALS: BP 122/72
[2017-04-20] VITALS: BP 138/78
[2017-04-20 04:00] VITALS: BP 124/80
[2017-04-20 08:00] VITALS: BP 136/80
[2017-04-20 12:00] VITALS: BP 140/90
[2017-04-20 16:00] VITALS: BP 136/64
[2017-04-20 20:00] VITALS: BP 124/77
[2017-04-21] VITALS: BP 148/80
[2017-04-21 06:22] LABS: BASO % 0.1 % (0.0-1.0); HEMATOCRIT 33.2 % (42.0-52.0); HEMOGLOBIN 11.5 g/dl (14.0-18.0); IG # 0.2 10*3/uL (0.0-0.1); LYMPH # 0.7 10*3/uL (1.3-4.4); LYMPH % 8.8 % (27.0-41.0); MEAN CELL VOLUME 91.2 fl (80.0-94.0); MEAN CORPUSCULAR HGB 31.6 pg (27.0-31.0); MEAN CORPUSCULAR HGB CONC 34.6 g/dl (33.0-37.0); MEAN PLATELET VOLUME 10.8 fl (9.6-12.3); MONO # 0.6 10*3/uL (0.1-1.0); MONO % 7.1 % (3.0-9.0); NEUT # 6.8 10*3/uL (2.3-7.9); NEUT % 81.2 % (47.0-73.0); PLATELET COUNT AUTOMATED 152 10*3/uL (130-400); RED BLOOD COUNT 3.64 10*6/uL (4.50-5.90); WHITE BLOOD COUNT 8.4 10*3/uL (4.8-10.8)
[2017-04-21 06:50] LABS: ALBUMIN 3.1 gm/dl (3.1-4.5); ALKALINE PHOSPHATASE 79 U/L (45-117); BILIRUBIN, TOTAL 0.4 mg/dl (0.2-1.0); BUN 29 mg/dl (7-24); CARBON DIOXIDE 29 mmol/L (21-32); CHLORIDE 102 mmol/L (98-107); CHOLESTEROL 106 mg/dL (<200); EST GLOM FILT AFRICAN AMERICAN > 60 ml/min; GLUCOSE 249 mg/dL (65-99); HDL CHOLESTEROL 43 mg/dl (40-60); LDL CHOLESTEROL 49 mg/dL (9-159); MAGNESIUM 2.1 mg/dL (1.5-2.1); PHOSPHOROUS 2.5 mg/dL (2.5-4.9); POTASSIUM 3.6 mmol/L (3.5-5.1); SGOT/AST 21 IU/L (3-35); SGPT/ALT 25 U/L (12-78); SODIUM 140 mmol/L (136-145); TOTAL PROTEIN 6.3 gm/dL (6.4-8.2); TRIGLYCERIDES 71 mg/dl (<150); VLDL CHOLESTEROL 14 mg/dL (6-40)
[2017-04-21 06:56] LABS: THYROID STIM HORMONE (HS) 0.212 uIU/ml (0.358-4.75)
[2017-04-21 07:12] LABS: HEMOGLOBIN A1c 8.5 % (4.8-5.6)
[2017-04-21 08:00] VITALS: BP 146/84
[2017-04-21 12:00] VITALS: BP 153/84
[2017-04-21 16:00] VITALS: BP 138/76
[2017-04-21 20:00] VITALS: BP 153/70
[2017-04-22] VITALS: BP 153/65
[2017-04-22 06:02] LABS: BUN 24 mg/dl (7-24); CARBON DIOXIDE 30 mmol/L (21-32); CHLORIDE 100 mmol/L (98-107); EST GLOM FILT AFRICAN AMERICAN > 60 ml/min; GLUCOSE 428 mg/dL (65-99); POTASSIUM 3.8 mmol/L (3.5-5.1); SODIUM 138 mmol/L (136-145)
[2017-04-22 06:11] LABS: HEMATOCRIT 34.4 % (42.0-52.0); HEMOGLOBIN 11.8 g/dl (14.0-18.0); MEAN CELL VOLUME 90.8 fl (80.0-94.0); MEAN CORPUSCULAR HGB 31.1 pg (27.0-31.0); MEAN CORPUSCULAR HGB CONC 34.3 g/dl (33.0-37.0); MEAN PLATELET VOLUME 11.2 fl (9.6-12.3); PLATELET COUNT AUTOMATED 158 10*3/uL (130-400); RED BLOOD COUNT 3.79 10*6/uL (4.50-5.90); WHITE BLOOD COUNT 9.3 10*3/uL (4.8-10.8)
[2017-04-22 06:48] LABS: LYMPHOCYTE # 0.7 10*3/uL (1.3-4.4); METAMYELOCYTES 1 % (0-0); MONOCYTE # 0.8 10*3/uL (0.1-1.0); MYELOCYTES 1 % (0-0); NEUTROPHIL # 7.5 10*3/uL (2.3-7.9); NEUTROPHILS 81 % (47-73); PLATELET SUFFICIENCY NORMAL (NORMAL); TOTAL CELLS COUNTED 100 #CELLS
[2017-04-22 08:00] VITALS: BP 154/90
[2017-04-22] MEDS ORDERED: LEVAQUIN500 M2 PO (11:25)
[2017-04-22] MEDS ORDERED: PREDNISONE50 MG PO (11:25)
== END 2017-04-22 13:40 | disposition home or self-care (01) | DRG 189 ==
LOC: ED 16:12 → ICCU 20:38 → EDHOLD 20:38 → ICCU 20:44 → 4E 04-20 18:50
PROVIDERS: Emergency Medicine; Emergency Medicine Emergency Medical Services; Internal Medicine
PROC: 5A09357 Assistance with Respiratory Ventilation, Less than 24 Consecutive Hours, Continuous Positive Airway Pressure (ICD-10-PCS; principal; 2017-04-19)
DX: J96.01 Acute respiratory failure with hypoxia (principal); J18.9 Pneumonia, unspecified organism; E11.65 Type 2 diabetes mellitus with hyperglycemia; E11.49 Type 2 diabetes mellitus with other diabetic neurological complication; J44.0 Chronic obstructive pulmonary disease with (acute) lower respiratory infection; J45.901 Unspecified asthma with (acute) exacerbation; J44.1 Chronic obstructive pulmonary disease with (acute) exacerbation; G47.33 Obstructive sleep apnea (adult) (pediatric); I10 Essential (primary) hypertension; G25.81 Restless legs syndrome; E66.9 Obesity, unspecified; J20.9 Acute bronchitis, unspecified; D64.9 Anemia, unspecified; N40.0 Benign prostatic hyperplasia without lower urinary tract symptoms; E78.00 Pure hypercholesterolemia, unspecified; M1A.9XX0 Chronic gout, unspecified, without tophus (tophi); Z96.653 Presence of artificial knee joint, bilateral; F43.10 Post-traumatic stress disorder, unspecified; G47.00 Insomnia, unspecified; E55.9 Vitamin D deficiency, unspecified; Z68.37 Body mass index [BMI] 37.0-37.9, adult; Z98.49 Cataract extraction status, unspecified eye; Z82.49 Family history of ischemic heart disease and other diseases of the circulatory system; Z80.9 Family history of malignant neoplasm, unspecified; Z88.8 Allergy status to other drugs, medicaments and biological substances; Z79.51 Long term (current) use of inhaled steroids; Z79.82 Long term (current) use of aspirin; Z79.1 Long term (current) use of non-steroidal anti-inflammatories (NSAID); Z79.899 Other long term (current) drug therapy

== ENCOUNTER 2017-05-09 17:12 | Emergency (ER) | payer MEDICARE ==
[~2017-05-09] VITALS: Wt 112.5 kg
[2017-05-09 17:39] LABS: BASO % 0.2 % (0.0-1.0); EOS # 0.1 10*3/uL (0.0-0.4); EOS % 2.4 % (1.0-4.0); HEMATOCRIT 36.2 % (42.0-52.0); HEMOGLOBIN 12.3 g/dl (14.0-18.0); LYMPH # 1.5 10*3/uL (1.3-4.4); LYMPH % 31.7 % (27.0-41.0); MEAN CELL VOLUME 91.6 fl (80.0-94.0); MEAN CORPUSCULAR HGB 31.1 pg (27.0-31.0); MEAN PLATELET VOLUME 10.5 fl (9.6-12.3); MONO # 0.4 10*3/uL (0.1-1.0); MONO % 9.1 % (3.0-9.0); NEUT # 2.6 10*3/uL (2.3-7.9); NEUT % 56.2 % (47.0-73.0); PLATELET COUNT AUTOMATED 127 10*3/uL (130-400); RED BLOOD COUNT 3.95 10*6/uL (4.50-5.90); RED CELL DISTRI WIDTH 13.1 % (0-14.5); WHITE BLOOD COUNT 4.6 10*3/uL (4.8-10.8)
[2017-05-09 17:47] LABS: PROTHROMBIN TIME 10.1 SECONDS (9.0-12.4)
[2017-05-09 17:59] LABS: ALBUMIN 3.3 gm/dl (3.1-4.5); ALKALINE PHOSPHATASE 74 U/L (45-117); BUN 23 mg/dl (7-24); CARBON DIOXIDE 29 mmol/L (21-32); CHLORIDE 104 mmol/L (98-107); EST GLOM FILT AFRICAN AMERICAN > 60 ml/min; GLUCOSE 146 mg/dL (65-99); POTASSIUM 3.7 mmol/L (3.5-5.1); SGOT/AST 19 IU/L (3-35); SGPT/ALT 24 U/L (12-78); SODIUM 141 mmol/L (136-145); TOTAL PROTEIN 6.3 gm/dL (6.4-8.2)
[2017-05-09 18:12] LABS: TROPONIN I < 0.015 ng/ml (<0.045)
[2017-05-09 18:13] VITALS: BP 111/65
[2017-05-09] MEDS ORDERED: PREDNISONE10 MG PO (18:33)
== END 2017-05-09 18:37 | disposition home or self-care (01) ==
LOC: ED 17:12
PROVIDERS: Nurse Practitioner Family
DX: J44.1 Chronic obstructive pulmonary disease with (acute) exacerbation (principal); J45.909 Unspecified asthma, uncomplicated; Z88.8 Allergy status to other drugs, medicaments and biological substances; Z79.82 Long term (current) use of aspirin; Z79.899 Other long term (current) drug therapy

== ENCOUNTER 2017-06-09 18:06 | Inpatient (IN) | payer MEDICARE ==
[~2017-06-09] VITALS: Ht 175.2 cm; Wt 116.3 kg
--- NOTE | ~2017-06-09 | PR ---
[place], [place] PROGRESS NOTE NAME: ISAAC FRANKLIN [facility] #: [id number] UNIT #: [id number] ROOM: 508 DOCTOR: TEJINDER PYLE MD BIRTHDATE: [birth year] DOS: 06/11/2017 PULMONARY FOLLOWUP NOTE SUBJECTIVE: The patient has been noted comfortable at this time, resting on the bed, reduction of the respiratory symptom noted. The stridor has been noted decreased. The patient denies symptoms of chest pain. The coughing has been noted mostly nonproductive with partial improvement. OBJECTIVE: VITAL SIGNS: The patient showed normal temperature, respiratory rate 18, heart rate of 69, blood pressure 142/74. The pulse oxygen saturation on 2 liters nasal cannula 98% saturation. HEENT: Examination shows no acute change. NECK: Supple. CARDIOVASCULAR: S1, S2 audible. LUNGS: Moderate decreased breath sounds, scattered wheezing. ABDOMEN: Soft, nontender. EXTREMITIES: Shows obesity. LABORATORY DATA: CBC: Mild anemia, otherwise normal. BMP was noted, glucose 344. BUN and creatinine was normal. IMPRESSION: 1. Gradual reduction and improvement noted in acute exacerbation of bronchial asthma, acute tracheobronchitis, inspiratory stridor has been resolved. 2. History of obstructive sleep apnea disorder. PLAN OF TREATMENT: The patient will be continued with current plan of therapy for this patient at this time without any changes. Gradual reduction of the steroids will be continued. Other supportive therapy, plan of management. The Solu-Medrol dose has been decreased to 40 mg b.i.d. today. Continue use of the BiPAP for this patient to stabilize his respiratory status as this has been noted effective and reduction in the respiratory symptoms. Continue use of the BiPAP at nighttime for the medical and previously known obstructive sleep apnea disorder management. [place], [place] PROGRESS NOTE NAME: ISAAC FRANKLIN [facility] #: [id number] UNIT #: [id number] ROOM: 508 DOCTOR: TEJINDER PYLE MD BIRTHDATE: [birth year] TEJINDER BARRIOS MD CM:PNTRANS [id number] TEJINDER NGUYỄN MD 06/11/17 1406 interface
--- NOTE | ~2017-06-09 | PR ---
[place], [place] PROGRESS NOTE NAME: ISAAC FRANKLIN UNIT #: [id number] ROOM: 508 DOCTOR: TEJINDER PYLE MD BIRTHDATE: [birth year] DOS: 06/12/2017 SUBJECTIVE: He has been noted comfortable at this time, sitting on his bed. Denies symptoms of chest pain or any abdominal pain. The coughing has been gradually subsiding. Shortness of breath is improving. The inspiratory stridor has been resolved. He has used the BiPAP last night for about 4-5 hours. OBJECTIVE: VITAL SIGNS: Normal, temperature this morning, respiratory rate 20, heart rate 73, blood pressure 115/81. Pulse oxygen saturation on 2 liters nasal cannula 97% saturation recorded. HEENT: Examination shows no acute change. NECK: Supple. CARDIOVASCULAR SYSTEM: S1, S2 audible. LUNGS: Noted with moderate reduction in the breath sounds noted in the lungs bilaterally with scattered expiratory wheezing. There were no crackles. ABDOMEN: Soft, chronic obesity. EXTREMITIES: Shows no edema. LABORATORY DATA: Urine culture noted 75,000 colony forming units of MRSA. IMPRESSION: 1. The patient with acute tracheobronchitis with exacerbation of bronchial asthma, which has been responding and improving gradually with the current medical management. 2. Chronic obesity. 3. Obstructive sleep apnea disorder. PLAN OF TREATMENT: No changes in the plan of therapy at this time from the pulmonary standpoint. The urine culture results to be addressed by the primary care attending, if the patient needs to be started on intravenous vancomycin or other medications. Continue current dose of Solu-Medrol. Usual care. Supportive therapy, plan of management, other care. [place], [place] PROGRESS NOTE NAME: ISAAC FRANKLIN UNIT #: [id number] ROOM: 508 DOCTOR: TEJINDER PYLE MD BIRTHDATE: [birth year] TEJINDER BARRIOS MD CM:PNTRANS 1324 TEJINDER NGUYỄN MD 06/13/175 interface
--- NOTE | ~2017-06-09 | PR ---
[place], [place] PROGRESS NOTE [id number] UN[facility] #: [id number] ROOM: 508 DOCTOR: DENIS NGUYỄN MD,TEJINDER BIRTHDATE: [birth year] DOS: 06/13/2017 SUBJECTIVE: The coughing of the patient is resolving continuously. Denies any symptoms of chest pain. Shortness of breath has been improving. OBJECTIVE: VITAL SIGNS: Normal temperature, respiratory rate 20, heart rate 67, blood pressure 164/74. The pulse oxygen saturation on 2 liters nasal cannula is 97% saturation. HEENT: Showed no acute change. Chronic obesity. NECK: Supple. ABDOMEN: Soft, obese, nontender. EXTREMITIES: Shows no edema. IMPRESSION: 1. The patient with resolving acute exacerbation of bronchial asthma, acute tracheobronchitis with resolution of inspiratory stridor. 2. Obstructive sleep apnea disorder. 3. Generalized anxiety disorder. PLAN OF TREATMENT: No changes from the pulmonary standpoint. Continuation of current therapy, plan of management. Discharge planning could be started for patient for home discharge on tapering prednisone, antibiotics. Other supportive plan of therapy, care and management. Usual care. TEJINDER BARRIOS MD CM:PNTRANS 54 TEJINDER NGUYỄN MD 06/13/172054 interface
--- NOTE | ~2017-06-09 | CON ---
[place], [place] REPORT OF CONSULTATION NAME: ISAAC FRANKLIN [facility] #: [id number] UNIT #: [id number] ROOM: 508 DOCTOR: TEJINDER PYLE MD BIRTHDATE: [birth year] DOS: 06/10/2017 CONSULTATION REQUESTED BY: Hospitalist services. REASON FOR CONSULTATION: For assessment of symptoms of shortness of breath. HISTORY OF PRESENT ILLNESS: This is a 71-year-old white male who has been admitted in this hospital under care of the hospitalist service on 06/09/2017. The patient started having symptoms of increased shortness of breath with cough which has been noted to be nonproductive and inspiratory stridor. The patient presented to the hospital Emergency Room. He has been currently admitted to the hospital for medical management of acute exacerbation of bronchial asthma. He denies any symptoms of chest pain. The cough has been noted to be moderate and nonproductive. The inspiratory stridor has been noted intermittently. The patient denies any symptoms of hemoptysis or any acute chest pain. REVIEW OF SYSTEMS: CONSTITUTIONAL: Fatigue and tiredness noted without symptoms of fever or chills. EYES: Denies any burning, redness, or tenderness. EARS, NOSE, AND THROAT: Denies sore throat, hoarseness, otalgia or postnasal drainage. LUNGS: Inspiratory stridor noted. Usually, when the patient gets acutely ill without any anatomical problems the stridor was noted more functional. CARDIOVASCULAR: Denies anginal pain, edema or pain of the lower extremities. GASTROINTESTINAL: Denies dysphagia, nausea, vomiting, diarrhea, abdominal pain, hematemesis, melena or hematochezia. SKIN: Denies any lesions or rashes. MUSCULOSKELETAL: Denies acute joint pain, redness or tenderness. CENTRAL NERVOUS SYSTEM: No dizziness, headache, diplopia or syncopal episodes. Remaining systems were reviewed with the patient, they were noted all negative. PREVIOUS HOSPITALIZATIONS: Last hospitalization in this hospital was in 03/2017 and discharged to home on 04/22/2017 for acute exacerbation of bronchial asthma and tracheobronchitis. PAST MEDICAL HISTORY: 1. History of uncomplicated severe persistent bronchial asthma. 2. History of chronic obesity. 3. Obstructive sleep apnea disorder. 4. Coronary artery disease. 5. PTSD. 6. Hyperlipidemia. 7. Essential hypertension. 8. History of restless legs syndrome. 9. Generalized anxiety disorder. 10. History of allergic rhinitis, unspecified. 11. History of TIA. 12. Degenerative arthritis. [place], [place] REPORT OF CONSULTATION NAME: ISAAC FRANKLIN UNIT #: [id number] ROOM: 508 DOCTOR: DENIS NGUYỄN MD,TEJINDER BIRTHDATE: [birth year] PAST SURGICAL HISTORY: 1. Past therapeutic bronchoscopies. 2. Cardiac catheterization. 3. Removal of the heel spur. 4. Total knee replacement. 5. Cervical fusion. 6. Lumbar laminectomy. FAMILY HISTORY: Noncontributory. SOCIAL HISTORY: The patient is , noted as lifetime nonsmoker without any history of alcohol use or illicit drug use. MEDICATIONS: Current administered medications, simvastatin, sertraline, Sinemet, vitamin D, allopurinol, Flomax, Coreg, aspirin, Protonix, Requip, gabapentin, Solu-Medrol 60 mg q. 6 hours, DuoNeb, Levaquin, Robitussin-AC and other p.r.n. medications. DRUG ALLERGY HISTORY: ALLERGY TO RESTORIL. PHYSICAL EXAMINATION: GENERAL: A 71-year-old male currently noted without any acute distress. VITAL SIGNS: Height was recorded by the nursing staff with height of 5 feet 9 inches, weight of 256 pounds, BMI of 37.8. Temperature normal, respiratory rate 20, heart rate of 94, blood pressure 151/84. Pulse oxygen saturation recorded on 2 L nasal cannula is 97% saturation. HEENT: Shows head atraumatic and eyes nonicterus. NECK: Supple. CARDIOVASCULAR: S1, S2 audible. LUNGS: General reduction in breath sounds with expiratory wheezing. Inspiratory stridor also heard in the neck. ABDOMEN: Chronic obesity. Bowel sounds present. EXTREMITIES: Show chronic obesity without edema, clubbing or cyanosis. CENTRAL NERVOUS SYSTEM: Cranial nerves 2-12 intact. No focal deficits. MUSCULOSKELETAL: Without any deformities. LABORATORY DATA: CBC done on 06/09/2017 shows WBC count normal, hemoglobin 13.5, hematocrit 39.2 and platelet count normal. Yesterday on admission, CMP was noted as BUN 15, creatinine 1.54 and glucose 161. Lactic acid was normal yesterday. CBC this morning was essentially noted about the same. CMP this morning, BUN 17, creatinine 1.36. Remaining CMP was normal. The chest x-ray, 2-view, that was done yesterday, images were personally reviewed, does not show any acute pulmonary infiltration. PT and PTT were noted to be normal yesterday. IMPRESSION: 1. The patient has been currently noted with acute exacerbation of uncomplicated severe persistent bronchial asthma. 2. Functional stridor with the possibility of vocal cord dysfunction. 3. History of chronic obesity as well. 4. Obstructive sleep apnea disorder. [place], [place] REPORT OF CONSULTATION NAME: ISAAC FRANKLIN UNIT #: [id number] ROOM: 508 DOCTOR: DENIS NGUYỄN MD,TEJINDER BIRTHDATE: [birth year] PLAN OF TREATMENT: Ordered BiPAP to help improve the stridor with respiratory distress. Continue antibiotics. Reduce the dose of Solu-Medrol from 60 mg q. 6 hours to 60 mg b.i.d. Continuation of bronchodilator as well as home medication. Continue current antibiotics as well. Usual care. Continue symptomatic management of the nonproductive cough as well with Codeine phosphate. All other supportive therapy and plan of management to be continued. Usual care and plan of therapies. Thanks for allowing me to participate in the care of this patient. TEJINDER BARRIOS MD CM:CONSTR:REPORT OF CONSULTATION 1137 06/10/17 1352 interface
[2017-06-09 18:30] VITALS: BP 117/78
[2017-06-09 18:35] LABS: BASO % 0.4 % (0.0-1.0); EOS # 0.1 10*3/uL (0.0-0.4); EOS % 1.6 % (1.0-4.0); HEMATOCRIT 39.2 % (42.0-52.0); HEMOGLOBIN 13.5 g/dl (14.0-18.0); LYMPH # 1.8 10*3/uL (1.3-4.4); LYMPH % 26.1 % (27.0-41.0); MEAN CORPUSCULAR HGB 31.3 pg (27.0-31.0); MEAN CORPUSCULAR HGB CONC 34.4 g/dl (33.0-37.0); MEAN PLATELET VOLUME 10.9 fl (9.6-12.3); MONO # 0.6 10*3/uL (0.1-1.0); MONO % 8.2 % (3.0-9.0); NEUT # 4.4 10*3/uL (2.3-7.9); NEUT % 63.4 % (47.0-73.0); PLATELET COUNT AUTOMATED 156 10*3/uL (130-400); RED BLOOD COUNT 4.31 10*6/uL (4.50-5.90); RED CELL DISTRI WIDTH 12.8 % (0-14.5)
[2017-06-09 18:50] LABS: ALBUMIN 3.4 gm/dl (3.1-4.5); ALKALINE PHOSPHATASE 87 U/L (45-117); BUN 15 mg/dl (7-24); CHLORIDE 104 mmol/L (98-107); CKMB 1.9 ng/ml (0.5-3.6); CPK 262 U/L (39-308); CREATININE 1.54 mg/dL (0.70-1.30); LIPASE 404 U/L (73-393); MAGNESIUM 2.1 mg/dL (1.5-2.1); POTASSIUM 3.8 mmol/L (3.5-5.1); SGOT/AST 35 IU/L (3-35); SGPT/ALT 20 U/L (12-78); SODIUM 142 mmol/L (136-145); TROPONIN I < 0.015 ng/ml (<0.045)
[2017-06-09 18:58] VITALS: BP 128/86
[2017-06-09 19:16] LABS: ACT PARTIAL THROMBO TIME 27.2 SECONDS (20.8-31.5)
[2017-06-09 19:36] VITALS: BP 116/79
--- NOTE | 2017-06-09 21:09 | NUR ---
ROOM ON INPATIENT SIDE IS NOT READY FOR PATIENT AT THIS TIME. INPATIENT NURSE WILL CALL ER WHEN THEY ARE READY.
--- NOTE | 2017-06-09 21:49 | NUR ---
ROOM STILL NOT AVAILABLE FOR PATIENT. WILL CONTINUE TO MONITOR.
[2017-06-09 23:00] VITALS: BP 148/84
--- NOTE | 2017-06-09 23:00 | NUR ---
A 71, admitted to 5E, under the services of GLYNN Villeda DO with a diagnosis of COPD EXACERBATION. Chief complaint is SOB. Patient arrived via bed from ER. Monitor applied. Initial assessment completed. Vital signs taken and recorded. GLYNN VILLEDA DO notified of admission to the unit. Orders received. See assessment for past medical history, medications and allergies. Patient and/or family oriented to unit. visitation policy reviewed. Clothing/patient valuable form completed. JORY LOMBARDI
[2017-06-09] MEDS ORDERED: METFORMIN500 MG PO (23:49)
[2017-06-09] MEDS ORDERED: SINEMET 25-1001 EACH PO (23:55)
[2017-06-09] MEDS ORDERED: FLONASE ALLERG9.9 ML NAS (23:56)
--- NOTE | 2017-06-09 23:59 | NUR ---
MED REC UP TO DATE USING PT LIST FROM HOME
[2017-06-10 00:22] LABS: BILIRUBIN NEGATIVE (NEGATIVE); BLOOD NEGATIVE (NEGATIVE); CLARITY CLEAR (CLEAR); COLOR YELLOW (YELLOW); GLUCOSE NEGATIVE (NEGATIVE); KETONE NEGATIVE (NEGATIVE); LEUKO ESTERASE TRACE (NEGATIVE); NITRITE NEGATIVE (NEGATIVE); PH 5.5 (5.0-9.0); UROBILINOGEN 0.2 E.U./dl (0.2-1.0)
[2017-06-10 00:30] LABS: BACTERIA TRACE
--- NOTE | 2017-06-10 00:53 | NUR ---
PT REQUESTING SOMETHING FOR RESTLESS LEGS. CALLED AND SPOKE TO DR HUGO REGARDING PT HOME REQUIP. SHE STATES SHE WILL PUT IT IN
--- NOTE | 2017-06-10 02:03 | NUR ---
REQUIP GIVEN NOW PER DR HUGO ORDER FOR C/O RESTLESS LEGS
[2017-06-10 03:04] LABS: BASO % 0.2 % (0.0-1.0); EOS % 0.2 % (1.0-4.0); HEMATOCRIT 37.3 % (42.0-52.0); HEMOGLOBIN 12.5 g/dl (14.0-18.0); LYMPH # 0.5 10*3/uL (1.3-4.4); LYMPH % 9.8 % (27.0-41.0); MEAN CELL VOLUME 91.6 fl (80.0-94.0); MEAN CORPUSCULAR HGB 30.7 pg (27.0-31.0); MEAN CORPUSCULAR HGB CONC 33.5 g/dl (33.0-37.0); MEAN PLATELET VOLUME 10.3 fl (9.6-12.3); MONO # 0.1 10*3/uL (0.1-1.0); MONO % 1.3 % (3.0-9.0); NEUT # 4.5 10*3/uL (2.3-7.9); NEUT % 87.5 % (47.0-73.0); PLATELET COUNT AUTOMATED 138 10*3/uL (130-400); RED BLOOD COUNT 4.07 10*6/uL (4.50-5.90); RED CELL DISTRI WIDTH 12.7 % (0-14.5); WHITE BLOOD COUNT 5.2 10*3/uL (4.8-10.8)
[2017-06-10 03:21] LABS: ALBUMIN 3.3 gm/dl (3.1-4.5); ALKALINE PHOSPHATASE 79 U/L (45-117); BUN 17 mg/dl (7-24); CHLORIDE 106 mmol/L (98-107); CREATININE 1.36 mg/dL (0.70-1.30); MAGNESIUM 1.8 mg/dL (1.5-2.1); PHOSPHOROUS 2.9 mg/dL (2.5-4.9); POTASSIUM 3.8 mmol/L (3.5-5.1); SGOT/AST 17 IU/L (3-35); SGPT/ALT 18 U/L (12-78); SODIUM 140 mmol/L (136-145); TOTAL PROTEIN 6.5 gm/dL (6.4-8.2)
--- NOTE | 2017-06-10 05:02 | NUR ---
DR BARRIOS MADE AWARE OF NEW CONSULT. NO ORDERS RECEIVED
[2017-06-10 08:00] VITALS: BP 151/84
--- NOTE | 2017-06-10 09:00 | NUR ---
case management attempted to visit with patient, patient with doctor at this time, will see at a later time
[2017-06-10 09:22] LABS: VITAMIN D, 25-HYDROXY 27.4 ng/mL (30-100)
[2017-06-10 12:00] VITALS: BP 127/68
[2017-06-10 16:00] VITALS: BP 139/78
--- NOTE | 2017-06-10 19:52 | NUR ---
PATIENT SITTING UP IN CHAIR, AUDIBLE WHEEZES, HARSH COUGH. PATIENT STATES THAT IT FEELS LIKE SOMETHING IS IN HIS THROAT AND CANT BRING IT UP. PATIENT DOES GET SHORT OF BREATH. DENIES ANY CHEST PAIN. PATIENT REFUSED SCD'S. PATIENT WILL BE ON BIPAP TONIGHT. PATIENT LEFT WITH CALL LIGHT IN REACH.
[2017-06-10 20:00] VITALS: BP 148/76
[2017-06-11] VITALS: BP 134/64
--- NOTE | 2017-06-11 01:11 | NUR ---
24 HR chart check completed.
[2017-06-11 04:00] VITALS: BP 117/61
--- NOTE | 2017-06-11 05:55 | NUR ---
PATIENT STATED HE USED THE BIPAP FOR 4HRS. PATIENT STATED HE WASNT ABLE TO SLEEP WITH THE BIPAP. PATIENT HAS CPAP AT HOME, BUT DIDNT WANT TO BRING IT IN.
[2017-06-11 07:09] LABS: HEMOGLOBIN 11.9 g/dl (14.0-18.0); LYMPH # 0.5 10*3/uL (1.3-4.4); LYMPH % 5.9 % (27.0-41.0); MEAN CELL VOLUME 92.8 fl (80.0-94.0); MEAN CORPUSCULAR HGB 31.6 pg (27.0-31.0); MEAN PLATELET VOLUME 11.2 fl (9.6-12.3); MONO # 0.4 10*3/uL (0.1-1.0); MONO % 4.7 % (3.0-9.0); NEUT # 7.8 10*3/uL (2.3-7.9); NEUT % 88.4 % (47.0-73.0); PLATELET COUNT AUTOMATED 146 10*3/uL (130-400); RED BLOOD COUNT 3.77 10*6/uL (4.50-5.90); RED CELL DISTRI WIDTH 12.8 % (0-14.5); WHITE BLOOD COUNT 8.9 10*3/uL (4.8-10.8)
[2017-06-11 07:22] LABS: BUN 22 mg/dl (7-24); CHLORIDE 105 mmol/L (98-107); CREATININE 1.29 mg/dL (0.70-1.30); PHOSPHOROUS 2.4 mg/dL (2.5-4.9); POTASSIUM 3.9 mmol/L (3.5-5.1); SODIUM 140 mmol/L (136-145)
[2017-06-11 08:02] VITALS: BP 138/70
[2017-06-11 12:04] VITALS: BP 142/74
[2017-06-11 16:00] VITALS: BP 134/76
[2017-06-11 20:00] VITALS: BP 151/75
[2017-06-12] VITALS: BP 152/81
[2017-06-12 08:00] VITALS: BP 159/81
--- NOTE | 2017-06-12 08:00 | NUR ---
OOB TO CHAIR, PT ADMITS TO S.O.B WITH EXERTION. EASY RESPIRATIONS WITH SKIN W/D. NON-PRODUCTIVE COUGH. SEE SHIFT ASSESSMENT.
--- NOTE | 2017-06-12 11:18 | NUR ---
DR DURBIN IN TO SEE PT.
--- NOTE | 2017-06-12 11:35 | NUR ---
DR BARRIOS IN TO SEE PT.
[2017-06-12 12:00] VITALS: BP 116/53
[2017-06-12 16:00] VITALS: BP 143/77
--- NOTE | 2017-06-12 17:19 | NUR ---
AMBULATORY IN ROOM, CONTINUES TO DENY C/O.
[2017-06-12 20:00] VITALS: BP 141/79
[2017-06-13] VITALS: BP 153/77
[2017-06-13 08:00] VITALS: BP 164/74
--- NOTE | 2017-06-13 09:38 | NUR ---
case management visits with patient, patient lives at home with his , he states she is independent in adls and ambulation, has a cpap at home, no home oxygen, patient states he never qualified for it, patient states he will be going back home and denies any home needs
[2017-06-13 12:00] VITALS: BP 104/57
[2017-06-13 16:00] VITALS: BP 131/66
[2017-06-13 20:00] VITALS: BP 150/68
--- NOTE | 2017-06-13 20:16 | NUR ---
PATIENT SITTING IN CHAIR AT BEDSIDE. EATING SNACK. NO NEEDS MADE. BED IN LOWEST POSITION, CALL LIGHT IN REACH
[2017-06-14] VITALS: BP 162/83
--- NOTE | 2017-06-14 02:28 | NUR ---
PATIENT RESTING IN CHAIR WITH NO S/S OF DISTRESS. NO NEEDS MADE. BED IN LOWEST POSITION, CALL LIGHT IN REACH
--- NOTE | 2017-06-14 02:48 | NUR ---
24 HR chart check completed.
--- NOTE | 2017-06-14 04:46 | NUR ---
Pt did not want to wear his BiPap tonight. Pt states he is going home tomorrow and would like to get some sleep tonight. Pt wore 2L NC to sleep up in the chair.
--- NOTE | 2017-06-14 05:32 | NUR ---
PATIENT STATES HE DOES NOT WANT INSULIN UNTIL AROUND 8AM DUE TO NOT EATING BREAKFAST UNTIL THEN
[2017-06-14 05:59] LABS: HEMOGLOBIN 12.7 g/dl (14.0-18.0); MEAN CELL VOLUME 90.7 fl (80.0-94.0); MEAN CORPUSCULAR HGB 31.1 pg (27.0-31.0); MEAN CORPUSCULAR HGB CONC 34.3 g/dl (33.0-37.0); MEAN PLATELET VOLUME 10.9 fl (9.6-12.3); PLATELET COUNT AUTOMATED 135 10*3/uL (130-400); RED BLOOD COUNT 4.08 10*6/uL (4.50-5.90); RED CELL DISTRI WIDTH 12.6 % (0-14.5); WHITE BLOOD COUNT 7.2 10*3/uL (4.8-10.8)
[2017-06-14 06:27] LABS: BUN 25 mg/dl (7-24); CHLORIDE 103 mmol/L (98-107); CREATININE 1.26 mg/dL (0.70-1.30); POTASSIUM 4.3 mmol/L (3.5-5.1); SODIUM 138 mmol/L (136-145)
[2017-06-14 06:44] LABS: PLATELET SUFFICIENCY NORMAL (NORMAL); TOTAL CELLS COUNTED 100 #CELLS
[2017-06-14 08:00] VITALS: BP 139/80
--- NOTE | 2017-06-14 08:00 | NUR ---
SITTING IN CHAIR AWAKE ALERT AND ORIENTED X3, NO C/O. STATES HE IS READY TO GO HOME. WILL CONT TO MONITOR. CALL LIGHT IN REACH. SEE ASSESS. LABS REVIEWED.
--- NOTE | 2017-06-14 09:00 | NUR ---
case management visits with patient, patient denies any home needs
[2017-06-14] MEDS ORDERED: LEVAQUIN500 M2 PO (10:09)
[2017-06-14] MEDS ORDERED: PREDNISONE10 MG PO (10:09)
[2017-06-14] MEDS ORDERED: BACTRIM 400-801 EACH PO (10:50)
[2017-06-14 12:00] VITALS: BP 142/74
--- NOTE | 2017-06-14 12:45 | NUR ---
DISCHARGED AT THIS TIME. IV REMOVED AND PRESSURE DRESSING APPLIED. VERBALIZED UNDERSTANDING OF DISCHARGE INSTRUCTIONS.
== END 2017-06-14 12:45 | disposition home or self-care (01) | DRG 871 ==
LOC: ED 18:06 → EDHOLD 20:45 → 5E 20:45
PROVIDERS: Internal Medicine; Internal Medicine Hospice and Palliative Medicine; Nurse Practitioner Family; ADMIT Internal Medicine
PROC: 5A09357 Assistance with Respiratory Ventilation, Less than 24 Consecutive Hours, Continuous Positive Airway Pressure (ICD-10-PCS; principal; 2017-06-11)
DX: A41.9 Sepsis, unspecified organism (principal); J18.9 Pneumonia, unspecified organism; N17.0 Acute kidney failure with tubular necrosis; J44.0 Chronic obstructive pulmonary disease with (acute) lower respiratory infection; J44.1 Chronic obstructive pulmonary disease with (acute) exacerbation; E11.40 Type 2 diabetes mellitus with diabetic neuropathy, unspecified; N40.0 Benign prostatic hyperplasia without lower urinary tract symptoms; F32.9 Major depressive disorder, single episode, unspecified; I10 Essential (primary) hypertension; E11.65 Type 2 diabetes mellitus with hyperglycemia; G47.00 Insomnia, unspecified; E55.9 Vitamin D deficiency, unspecified; D64.9 Anemia, unspecified; J20.9 Acute bronchitis, unspecified; F41.1 Generalized anxiety disorder; E66.8 Other obesity; M19.90 Unspecified osteoarthritis, unspecified site; E78.5 Hyperlipidemia, unspecified; R06.1 Stridor; M10.9 Gout, unspecified; E78.00 Pure hypercholesterolemia, unspecified; G47.33 Obstructive sleep apnea (adult) (pediatric); F43.10 Post-traumatic stress disorder, unspecified; G25.81 Restless legs syndrome; Z96.653 Presence of artificial knee joint, bilateral; Z86.73 Personal history of transient ischemic attack (TIA), and cerebral infarction without residual deficits; Z98.1 Arthrodesis status; Z68.37 Body mass index [BMI] 37.0-37.9, adult; Z88.8 Allergy status to other drugs, medicaments and biological substances; Z82.49 Family history of ischemic heart disease and other diseases of the circulatory system; Z83.3 Family history of diabetes mellitus; Z80.8 Family history of malignant neoplasm of other organs or systems

== ENCOUNTER 2017-07-23 15:40 | Inpatient (IN) | payer MEDICARE ==
[~2017-07-23] VITALS: Ht 175.2 cm; Wt 109.8 kg
--- NOTE | ~2017-07-23 | CON ---
[place], [place] REPORT OF CONSULTATION [id number] UNIT #: [id number] ROOM: 531 DOCTOR: TEJINDER PYLE MD BIRTHDATE: [birth year] DOS: 07/26/2017 REASON FOR CONSULTATION: To assess the patient for ongoing acute respiratory symptom and exacerbation of bronchial asthma. HISTORY OF PRESENT ILLNESS: This 71-year-old white male known to me with history of bronchial asthma as well as a history of obstructive sleep apnea disorder. The patient has been seeing another lead assembler in [place]. The patient has been recently started on prednisone course at 10 mg b.i.d. The patient stated he has been noted with acute illness that has been ongoing for the past 7-10 days. The symptoms were noted worsened. The patient stated he could not take it anymore and came to the hospital when he was admitted to the hospital for further medical management. The patient denies any symptoms of chest pain. Denies symptoms of hemoptysis. The coughing has been noted for the patient intermittently without any sputum expectoration. He has been getting intravenous corticosteroids with medical management since hospitalization 07/23/2017 with a very mild improvement described. The cough has been noted mostly nonproductive. REVIEW OF SYSTEMS: CONSTITUTIONAL: He does have symptoms of fatigue and tiredness. Denies fever or chills. EYES: Denies any burning, redness, or tenderness. EARS, NOSE, THROAT: No sore throat, hoarseness, otalgia, postnasal drainage or epistaxis. CARDIOVASCULAR: Denies anginal pain, edema or pain of the lower extremities. GASTROINTESTINAL: Denies dysphagia, nausea, vomiting, diarrhea, abdominal pain, hematemesis, or melena. SKIN: Denies lesions or rashes. GENITOURINARY: Denies dysuria, suprapubic pain, or hematuria. CENTRAL NERVOUS SYSTEM: Denies dizziness, headache, diplopia or syncopal episodes. Remaining systems were reviewed with the patient, they were noted all negative. PAST MEDICAL HISTORY: 1. The patient was known with history of bronchial asthma and recurrent exacerbation with frequent hospitalization. All the workup for allergies has been noted negative with past assessments. 2. History of chronic obesity. 3. Obstructive sleep apnea disorder. 4. Coronary artery disease. 5. PTSD. 6. Hyperlipidemia. 7. Essential hypertension. 8. Restless legs syndrome. 9. Generalized anxiety disorder. 10. Allergic rhinitis, unspecified. 11. History of TIA. 12. History of degenerative arthritis. [place], [place] REPORT OF CONSULTATION NAME: ISAAC FRANKLIN UNIT #: [id number] ROOM: 531 DOCTOR: TEJINDER PYLE MD BIRTHDATE: [birth year] PAST SURGICAL HISTORY: 1. Previous therapy of bronchoscopy. 2. Cardiac catheterization. 3. Lens implantation. 4. Removal of the heel spur. 5. Total knee replacement. 6. Cervical fusion. 7. Lumbar laminectomy. SOCIAL HISTORY: The patient is and lives at home. Lifetime nonsmoker, but there has secondhand smoke exposure from his . No history of alcohol use or illicit drug use. FAMILY HISTORY: Noncontributory. MEDICATIONS: For the patient which were listed by the patient at this time was mentioned in the medication reconciliation from. HOME MEDICATIONS: 1. Noted use of prednisone 20 mg daily. 2. Ventolin HFA inhaler p.r.n. use. 3. Symbicort 160/4.5 two puffs b.i.d. 4. Spiriva Respimat 2 inhalations daily. 5. Flonase 1 spray each nostril b.i.d. 6. Allopurinol 100 mg daily. 7. Albuterol sulfate nebulizer 2.5 mg b.i.d. 8. Sinemet 25/100 daily. 9. Coreg 6.25 mg p.o. b.i.d. 10. Vitamin D 1000 international units daily. 11. Neurontin 100 mg p.o. b.i.d. 12. Glipizide XL 2.5 mg b.i.d. 13. Metformin 500 mg p.o. b.i.d. 14. Protonix 40 mg daily. 15. ReQuip 0.5 mg t.i.d. 16. Sertraline 50 mg p.o. at bedtime. 17. Valsartan 80 mg daily. 16. Flomax 0.4 mg daily. DRUG ALLERGIES: Noted as allergy to RESTORIL CAUSING HALLUCINATIONS. PHYSICAL EXAMINATION: GENERAL: This is a 71-year-old male who is currently sitting on the chair at the time of assessment. Mild expiratory stridor for noted, but not noted severe as in the past. VITAL SIGNS: Height of the patient recorded on admission as 5 feet 9 inches, weight 242 pounds, BMI 35.7. Normal temperature, respiratory rate 18-20, heart rate 70-72, blood pressure 170/90-174/86. The pulse oxygen saturation is 90% on 2 liters nasal cannula. HEENT: Moderate ____ noted chronic severe obesity. Decreased posterior [place], [place] REPORT OF CONSULTATION NAME: ISAAC FRANKLIN UNIT #: [id number] ROOM: 531 DOCTOR: DENIS NGUYỄN MD,TEJINDER BIRTHDATE: [birth year] pharyngeal space, high tongue base crowding of soft tissue structures. CARDIOVASCULAR: S1, S2 audible. LUNGS: General reduction in breath sounds with expiratory wheezing without any crackles. ABDOMEN: Soft, obese, nontender. Bowel sounds present. CENTRAL NERVOUS SYSTEM: Noted cranial nerves 2-12 intact. No focal deficits. MUSCULOSKELETAL: No deformities. SKIN: No lesions or rashes. LABORATORY DATA: PT, PTT for the patient on 07/23/2017 normal. Lactic acid 07/23/2017 normal. CMP 07/23/2017, BUN of 17, creatinine 1.41, glucose 157. The troponin for this patient on admission noted normal on 07/23/2017. Blood culture from 07/23/2017, two sets for the patient showed no bacterial growth. CBC this morning, except mild anemia, noted normal CBC. BMP this morning, glucose elevated 289, BUN 20, creatinine 1.33. Chest x-ray of the patient, 1 view, which were done in the Emergency Room on 07/23/2017 was essentially noted without any acute pulmonary infiltration. IMPRESSION: 1. Recurrent acute exacerbation of uncomplicated severe persistent bronchial asthma, history of nonspecific allergic rhinitis with history of obstructive sleep apnea disorder with intermittent noncompliance. 2. History of chronic obesity as well. 3. Type 2 diabetes mellitus with hyperglycemia use of the corticosteroids. PLAN OF TREATMENT: 1. The patient has been continued on the bronchodilators and oxygen supplementation as Solu-Medrol 60 mg q.8 hours. The dose will be decreased based on the improvement in the illness. So far, the patient has been noted partial improvement in the symptoms. 2. Uncontrolled hypertension related to the current stress and use of corticosteroids could be the likely reason. 3. The patient was recommended about use of the BiPAP to help stabilize the respiratory status, but he does not wish to do that at this time. However, the BiPAP has been available in the room for the patient to be used whenever he desires. Continue bronchodilator current medical management and other treatment plan of therapy. Usual care, other supportive plan of care. Additional treatment changes need to be made based on progression of the illness. No acute changes in treatment at this time needs to be made. Thank you for allowing me to participate in the care of this patient. [place], [place] REPORT OF CONSULTATION NAME: ISAAC FRANKLIN V[facility] UNIT #: [id number] ROOM: 531 DOCTOR: TEJINDER PYLE MD BIRTHDATE: [birth year] TEJINDER BARRIOS MD CM:CONSTR:REPORT OF CONSULTATION 1111 07/27/17 0703 interface
--- NOTE | ~2017-07-23 | PR ---
[place], [place] PROGRESS NOTE NAME: ISAAC FRANKLIN UNIT #: [id number] ROOM: 531 DOCTOR: TEJINDER PYLE MD BIRTHDATE: [birth year] DOS: 07/27/2017 PULMONARY PROGRESS FOLLOWUP SUBJECTIVE: He has history of complaining of wheezing, which occurs mostly with exertion and walking. Shortness of breath occurred . He does have omsp-ii-fwikzuee cough without any sputum expectoration. He still noted worried about his elevation of systolic blood pressure. OBJECTIVE: VITAL SIGNS: For the patient which has been recorded showed the blood pressure 188/94, pulse ox saturation of 96% on 2 L nasal cannula. The heart rate of patient recorded as 83, respiratory rate 20, normal temperature. HEENT: No acute change. NECK: Supple. CARDIOVASCULAR: S1, S2 audible. LUNGS: The patient was noted without any crackles. Decreased breath sounds noted with expiratory wheezing for this patient in the lungs, decreased from previous examination. ABDOMEN: Soft, obese, nontender. IMPRESSION: 1. The patient who has been currently noted with acute exacerbation of bronchial asthma for this patient, which has been responding to current treatment. 2. Uncontrolled systolic hypertension maybe related to ____ corticosteroids and other reasons. PLAN OF TREATMENT: The patient will be continued on the treatment with corticosteroids; however, the dose will be decreased to 60 mg b.i.d. Continue monitoring respiratory status. The management of essential hypertension already done by the primary care attending. Other supportive therapy, plan of management care. Usual care and plan of therapies. [place], [place] PROGRESS NOTE NAME: ISAAC FRANKLIN UNIT #: [id number] ROOM: 531 DOCTOR: TEJINDER PYLE MD BIRTHDATE: [birth year] TEJINDER BARRIOS MD CM:PNTRANS [id number] TEJINDER NGUYỄN MD 07/28/17 0234 interface
[~2017-07-23 15:40] MED LIST changes: +BACTRIM 400-801 EACH PO; +FLONASE ALLERG9.9 ML NAS; +METFORMIN500 MG PO; +SINEMET 25-1001 EACH PO
[2017-07-23 15:43] VITALS: BP 149/103
[2017-07-23 16:08] LABS: BASO % 0.4 % (0.0-1.0); HEMATOCRIT 39.3 % (42.0-52.0); HEMOGLOBIN 13.2 g/dl (14.0-18.0); LYMPH # 1.3 10*3/uL (1.3-4.4); LYMPH % 16.8 % (27.0-41.0); MEAN CELL VOLUME 90.8 fl (80.0-94.0); MEAN CORPUSCULAR HGB 30.5 pg (27.0-31.0); MEAN CORPUSCULAR HGB CONC 33.6 g/dl (33.0-37.0); MEAN PLATELET VOLUME 10.5 fl (9.6-12.3); MONO # 0.5 10*3/uL (0.1-1.0); MONO % 5.9 % (3.0-9.0); NEUT # 6.1 10*3/uL (2.3-7.9); NEUT % 76.3 % (47.0-73.0); PLATELET COUNT AUTOMATED 153 10*3/uL (130-400); RED BLOOD COUNT 4.33 10*6/uL (4.50-5.90); RED CELL DISTRI WIDTH 12.4 % (0-14.5)
[2017-07-23 16:17] LABS: ACT PARTIAL THROMBO TIME 25.9 SECONDS (20.8-31.5)
[2017-07-23 16:24] LABS: ALBUMIN 3.4 gm/dl (3.1-4.5); ALKALINE PHOSPHATASE 94 U/L (45-117); BUN 17 mg/dl (7-24); CHLORIDE 106 mmol/L (98-107); CREATININE 1.41 mg/dL (0.70-1.30); MAGNESIUM 2.2 mg/dL (1.5-2.1); POTASSIUM 4.5 mmol/L (3.5-5.1); SGOT/AST 17 IU/L (3-35); SGPT/ALT 12 U/L (12-78); SODIUM 141 mmol/L (136-145); TOTAL PROTEIN 7.2 gm/dL (6.4-8.2)
[2017-07-23 16:29] LABS: TROPONIN I < 0.015 ng/ml (<0.045)
[2017-07-23 16:37] VITALS: BP 145/94
--- NOTE | 2017-07-23 17:12 | NUR ---
REPORT GIVEN TO 5TH FLOOR AT THIS TIME TO TOBY.
--- NOTE | 2017-07-23 17:39 | NUR ---
PATIENT PLACED ONTO ORACLE ERP ARCHITECT IN [address] [place] [address] AT [facility].
--- NOTE | 2017-07-23 17:40 | NUR ---
A 71, admitted to , under the services of GLYNN Villeda DO with a diagnosis of COPD, ACUTE RENAL INSUFFICIENCY, HTN. Chief complaint is SHORTNESS OF BREATH. Patient arrived via bed from ER. Monitor applied. Initial assessment completed. Vital signs taken and recorded. GLYNN VILLEDA DO notified of admission to the unit. Orders received. See assessment for past medical history, medications and allergies. Patient and/or family oriented to unit. [facility] visitation policy reviewed. Clothing/patient valuable form completed. TOBY SHAW
[2017-07-23] MEDS ORDERED: SYMBICORT INH (18:40)
[2017-07-23 20:00] VITALS: BP 147/88
--- NOTE | 2017-07-23 20:00 | NUR ---
SITTING UP IN CHAIR. AUDIBLY WHEEZY AND COUGHING. RESPIRATORY THERAPY CALLED FOR PATIENT TO HAVE A BREATHING TREATMENT.
--- NOTE | 2017-07-23 20:04 | NUR ---
MEDICATED WITH ROBITUSSIN FOR C/O COUGH.
[2017-07-23 20:06] LABS: TROPONIN I < 0.015 ng/ml (<0.045)
[2017-07-23 20:07] LABS: THYROID STIM HORMONE (HS) 0.578 uIU/ml (0.358-4.75)
--- NOTE | 2017-07-23 21:30 | NUR ---
LESS WHEEZY THAN EARLIER; COUGH LESSENED. ROBITUSSIN APPARENTLY EFFECTIVE.
--- NOTE | 2017-07-23 22:00 | NUR ---
BLOOD SUGAR 351; COVERAGE GIVEN PER EMAR.
[2017-07-24] VITALS: BP 147/93
--- NOTE | 2017-07-24 01:49 | NUR ---
MEDICATED WITH ROBITUSSIN FOR COUGH.
--- NOTE | 2017-07-24 06:00 | NUR ---
BLOOD SUGAR 226; COVERAGE GIVEN PER EMAR.
[2017-07-24 07:01] LABS: BASO % 0.1 % (0.0-1.0); HEMATOCRIT 38.4 % (42.0-52.0); HEMOGLOBIN 13.1 g/dl (14.0-18.0); LYMPH # 0.6 10*3/uL (1.3-4.4); LYMPH % 7.4 % (27.0-41.0); MEAN CORPUSCULAR HGB CONC 34.1 g/dl (33.0-37.0); MEAN PLATELET VOLUME 11.2 fl (9.6-12.3); MONO # 0.2 10*3/uL (0.1-1.0); MONO % 2.8 % (3.0-9.0); NEUT % 88.6 % (47.0-73.0); PLATELET COUNT AUTOMATED 160 10*3/uL (130-400); RED BLOOD COUNT 4.22 10*6/uL (4.50-5.90); RED CELL DISTRI WIDTH 12.2 % (0-14.5)
[2017-07-24 07:23] LABS: BUN 19 mg/dl (7-24); CHLORIDE 106 mmol/L (98-107); CREATININE 1.16 mg/dL (0.70-1.30); POTASSIUM 4.3 mmol/L (3.5-5.1); SODIUM 140 mmol/L (136-145)
--- NOTE | 2017-07-24 08:04 | NUR ---
MEDICATED WITH PRN PO ROBITUSSIN AC FOR NONPRODUCTIVE COUGH.
[2017-07-24 08:15] VITALS: BP 155/80
[2017-07-24 13:07] VITALS: BP 158/83
[2017-07-24 16:00] VITALS: BP 142/82
[2017-07-24 20:00] VITALS: BP 132/73
[2017-07-25] VITALS: BP 136/66
[2017-07-25 12:00] VITALS: BP 160/87
[2017-07-25 16:00] VITALS: BP 161/80
--- NOTE | 2017-07-25 18:01 | NUR ---
Yonny BRYAN NOTIFIED OF CONSULT
[2017-07-25 20:00] VITALS: BP 171/81
--- NOTE | 2017-07-25 21:30 | NUR ---
PATIENT OOB IN CHAIR. C/O SOB AT ALL TIMES. RESPIRATIONS EASY/REG. PATIENT SEEMS TO HAVE FORCED WHEEZES. NO OTHER COMPLAINTS AT THIS TIME. PATIENT IS AMBULATORY, STEADY GAIT. CALL LIGHT IN REACH. WILL MONITOR.
--- NOTE | 2017-07-25 21:51 | NUR ---
MEDICATED WITH PRN ROBITUSSIN FOR C/O A COUGH.
[2017-07-26] VITALS: BP 174/86
--- NOTE | 2017-07-26 04:41 | NUR ---
PATIENT OOB IN CHAIR SLEEPING. NO SXS OF DISTRESS. RESPIRATIONS EASY/REGULAR. CALL LIGHT IN REACH.
[2017-07-26 06:21] LABS: BUN 28 mg/dl (7-24); CHLORIDE 102 mmol/L (98-107); CREATININE 1.33 mg/dL (0.70-1.30); POTASSIUM 4.7 mmol/L (3.5-5.1); SODIUM 140 mmol/L (136-145)
[2017-07-26 06:36] LABS: BASO % 0.1 % (0.0-1.0); HEMATOCRIT 38.6 % (42.0-52.0); HEMOGLOBIN 12.9 g/dl (14.0-18.0); LYMPH # 0.7 10*3/uL (1.3-4.4); MEAN CELL VOLUME 89.6 fl (80.0-94.0); MEAN CORPUSCULAR HGB 29.9 pg (27.0-31.0); MEAN CORPUSCULAR HGB CONC 33.4 g/dl (33.0-37.0); MEAN PLATELET VOLUME 11.5 fl (9.6-12.3); MONO # 0.4 10*3/uL (0.1-1.0); MONO % 4.3 % (3.0-9.0); NEUT # 7.3 10*3/uL (2.3-7.9); NEUT % 86.5 % (47.0-73.0); PLATELET COUNT AUTOMATED 154 10*3/uL (130-400); RED BLOOD COUNT 4.31 10*6/uL (4.50-5.90); RED CELL DISTRI WIDTH 12.1 % (0-14.5); WHITE BLOOD COUNT 8.4 10*3/uL (4.8-10.8)
--- NOTE | 2017-07-26 06:54 | NUR ---
PATIENT SLEPT T/O SHIFT WITH NO VOICED COMPLAINTS. PLEASANT/COOPERATIVE WITH CARE. AMBULATORYY. CALL LIGHT IS IN REACH.
[2017-07-26 08:00] VITALS: BP 170/90
--- NOTE | 2017-07-26 08:18 | NUR ---
Shift chart check completed.
--- NOTE | 2017-07-26 08:30 | NUR ---
PT STATES HE GETS SOME OF HIS MEDS FROM [place]. STATES HE IS 50% SERVICE CONNECTED AND WILL STAY HERE UNDER HIS MEDICARE.
--- NOTE | 2017-07-26 08:30 | NUR ---
Patrol Supervisor in to talk to patient. Patient states lives at HOME with HIS . There are 18 steps in the home. Physician: UZMA SIMENTAL [facility] [place] Home health services: NONE Patient's level of ADLs: INDEPENDENT Patient has working utilities: YES DME: CPAP/NEB Follow-up physician's appointment after d/c: WILL BE MADE PRIOR TO DC Does patient want to access PORTAL?: Discharge plan HOME. ULYSSES DAVIES
[2017-07-26 12:00] VITALS: BP 158/85
[2017-07-26 16:00] VITALS: BP 136/72
[2017-07-26 20:00] VITALS: BP 134/66
--- NOTE | 2017-07-26 22:50 | NUR ---
PT REQUESTED COUGHING MEDICATION TO HELP HIM SLEEP. ROBITUSSIN WAS GIVEN.
[2017-07-27] VITALS: BP 158/80
--- NOTE | 2017-07-27 00:20 | NUR ---
ROBITUSSIN WAS EFFECTIVE PER PT. COUGHING HAS SUBSIDED AND PT IS BECOMING SLEEPY.
[2017-07-27 06:35] LABS: HEMATOCRIT 39.4 % (42.0-52.0); HEMOGLOBIN 13.4 g/dl (14.0-18.0); LYMPH # 0.6 10*3/uL (1.3-4.4); LYMPH % 7.1 % (27.0-41.0); MEAN CELL VOLUME 88.9 fl (80.0-94.0); MEAN CORPUSCULAR HGB 30.2 pg (27.0-31.0); MEAN PLATELET VOLUME 11.7 fl (9.6-12.3); MONO # 0.4 10*3/uL (0.1-1.0); MONO % 5.1 % (3.0-9.0); NEUT # 6.7 10*3/uL (2.3-7.9); NEUT % 86.2 % (47.0-73.0); PLATELET COUNT AUTOMATED 149 10*3/uL (130-400); RED BLOOD COUNT 4.43 10*6/uL (4.50-5.90); WHITE BLOOD COUNT 7.7 10*3/uL (4.8-10.8)
[2017-07-27 06:44] LABS: BUN 28 mg/dl (7-24); CHLORIDE 99 mmol/L (98-107); CREATININE 1.26 mg/dL (0.70-1.30); POTASSIUM 4.2 mmol/L (3.5-5.1); SODIUM 137 mmol/L (136-145)
[2017-07-27 08:00] VITALS: BP 188/94
[2017-07-27 12:00] VITALS: BP 140/80
[2017-07-27] MEDS ORDERED: PREDNISONE50 MG PO (12:42)
[2017-07-27] MEDS ORDERED: LEVOFLOXACIN500 MG PO (12:42)
== END 2017-07-27 14:08 | disposition home or self-care (01) | DRG 871 ==
LOC: ED 15:40 → EDHOLD 16:37 → 5E 16:37
PROVIDERS: Internal Medicine Hospice and Palliative Medicine; Internal Medicine Nephrology; Nurse Practitioner Family; ADMIT Internal Medicine
DX: A41.9 Sepsis, unspecified organism (principal); J18.9 Pneumonia, unspecified organism; E11.22 Type 2 diabetes mellitus with diabetic chronic kidney disease; J44.0 Chronic obstructive pulmonary disease with (acute) lower respiratory infection; E11.42 Type 2 diabetes mellitus with diabetic polyneuropathy; J45.51 Severe persistent asthma with (acute) exacerbation; E11.65 Type 2 diabetes mellitus with hyperglycemia; N18.3 Chronic kidney disease, stage 3 (moderate); J44.1 Chronic obstructive pulmonary disease with (acute) exacerbation; E83.41 Hypermagnesemia; G47.33 Obstructive sleep apnea (adult) (pediatric); E66.01 Morbid (severe) obesity due to excess calories; I12.9 Hypertensive chronic kidney disease with stage 1 through stage 4 chronic kidney disease, or unspecified chronic kidney disease; N40.0 Benign prostatic hyperplasia without lower urinary tract symptoms; E78.00 Pure hypercholesterolemia, unspecified; E83.51 Hypocalcemia; Z96.1 Presence of intraocular lens; M19.90 Unspecified osteoarthritis, unspecified site; Z96.653 Presence of artificial knee joint, bilateral; F43.10 Post-traumatic stress disorder, unspecified; M1A.09X0 Idiopathic chronic gout, multiple sites, without tophus (tophi); Z77.22 Contact with and (suspected) exposure to environmental tobacco smoke (acute) (chronic); F41.1 Generalized anxiety disorder; D64.9 Anemia, unspecified; F32.9 Major depressive disorder, single episode, unspecified; G25.81 Restless legs syndrome; Z88.8 Allergy status to other drugs, medicaments and biological substances; Z79.899 Other long term (current) drug therapy; Z82.49 Family history of ischemic heart disease and other diseases of the circulatory system; Z98.49 Cataract extraction status, unspecified eye; Z80.9 Family history of malignant neoplasm, unspecified; Z83.3 Family history of diabetes mellitus; Z79.82 Long term (current) use of aspirin; Z86.73 Personal history of transient ischemic attack (TIA), and cerebral infarction without residual deficits; Z98.1 Arthrodesis status; Z68.35 Body mass index [BMI] 35.0-35.9, adult

== ENCOUNTER 2017-08-29 14:34 | Inpatient (IN) | payer MEDICARE ==
[~2017-08-29] VITALS: Wt 113.4 kg
--- NOTE | ~2017-08-29 | CON ---
[place], [place] REPORT OF CONSULTATION NAME: ISAAC FRANKLIN [facility] #: [id number] UNIT #: [id number] ROOM: 516 DOCTOR: TEJINDER PYLE MD BIRTHDATE: [birth year] DOS: 08/30/2017 CONSULTATION REQUESTED BY: Hospitalist services, Dr. Logan for assessment of the current acute exacerbation of bronchial asthma. HISTORY OF PRESENT ILLNESS: A 71-year-old white male known to me with past history of bronchial asthma, allergic rhinitis, obstructive sleep apnea disorder, recurrent frequent hospitalization, treated with different medications. The patient is also using the CPAP at home for the medical management of sleep apnea disorder. He presented to the hospital. The patient developed acute increased symptoms of shortness of breath with coughing and wheezing, as he swept the porch at home. The symptoms are noted progressive worsening. The patient came into the hospital for further assessment. He denies symptoms of chest pain or hemoptysis. The patient denies symptoms of chest trauma. The symptoms has been noted decreased this morning. The patient stated that he would like to be discharged home since he has all the things at home and nothing more is done here. REVIEW OF SYSTEMS: CONSTITUTIONAL: Fatigue and tiredness noted mild which is improving. There were no symptoms of chills. EYES: Denies any burning, redness or blurred. ENT: Vision discharge. Dryness EARS, NOSE, AND THROAT SYMPTOMS: No sore throat, hoarseness, otalgia, postnasal drainage. CARDIOVASCULAR: Denies anginal pain, edema, pain of the lower extremities. GASTROINTESTINAL: Denies dysphagia, nausea, vomiting, diarrhea, abdominal pain, hematemesis, melena, or hematochezia. SKIN: No lesions or rashes. GENITOURINARY SYMPTOMS: Denies dysuria, suprapubic pain, hematuria. MUSCULOSKELETAL: Denies acute joint pain, redness, or tenderness. CENTRAL NERVOUS SYSTEM: Denies dizziness, headache, diplopia, syncope, or seizures. Remaining systems were reviewed and they were noted all negative. PAST MEDICAL HISTORY: Noted with last hospitalization in [facility] in 07/2017, the patient was treated in this hospital from 07/25/2017 until 07/27/2017 for the medical management of recurrent acute exacerbation of bronchial asthma and then home discharge. PAST MEDICAL HISTORY, SURGICAL HISTORY, FAMILY HISTORY, SOCIAL HISTORY: Reviewed with the patient again and noted, unchanged from my past consultation, which was done for this patient on 07/26/2017 hospitalization. Please refer to the consultation for any details of which has been available rather the [employer] document. CURRENT MEDICATIONS: Administered noted use of Solu-Medrol 40 mg IV b.i.d., Flonase, vitamin D, losartan, allopurinol, Flomax, aspirin, Lovenox for DVT prophylaxis, Sinemet, Requip, Protonix, Coreg, Sertraline, gabapentin, simvastatin, albuterol sulfate and other p.r.n. medications administration. [place], [place] REPORT OF CONSULTATION NAME: ISAAC FRANKLIN UNIT #: [id number] ROOM: 516 DOCTOR: DENIS NGUYỄN MD,TEJINDER BIRTHDATE: [birth year] DRUG ALLERGIES: NOTED ALLERGY TO RESTORIL CAUSING HALLUCINATIONS. PHYSICAL EXAMINATION: GENERAL: This is a 71-year-old white male who has been currently noted sitting on the chair without any distress noted with some inspiratory squeaking sounds; however, does not show any acute respiratory distress, able to speak full sentences. Height was noted documented. Weight was recorded to 50 pounds on this admission. VITAL SIGNS: Normal temperature, respiratory rate of 20-17, heart 78-102, blood pressure 138/86-147/105. Pulse oxygen saturation noted on room air 95% saturation on 2 liters 96% saturation. HEENT: Noted without any acute changes. Neck was supple. Head was atraumatic. Eyes nonicterus. Decreased posterior pharyngeal space, high tongue base and crowding of soft tissue structures, chronic finding. CARDIOVASCULAR: S1, S2 audible. LUNGS: Moderately reduced breath sound with scattered expiratory wheezing, no crackles. ABDOMEN: Soft and obese. EXTREMITIES: Chronic obesity. CENTRAL NERVOUS SYSTEM: Cranial nerves 2-12 intact. No focal deficits. MUSCULOSKELETAL: No deformities. SKIN: No lesions or rashes. LABORATORY DATA: CBC of 08/29/2017 were noted as normal. CBC except platelet count 125,000, eosinophils were also noted as 0%. PT/PTT yesterday was normal. CMP yesterday, glucose 302, BUN 24, creatinine 1.32. CBC of this morning, essentially remains normal as previously. BMP this morning, normal BUN, creatinine and glucose 132. Chest x-ray of the patient one view in the Emergency Room does not show any acute abnormalities. IMPRESSION: 1. Acute exacerbation of bronchial asthma for this patient, which is noticed severely uncomplicated with severe persistent bronchial asthma with exposure to the weather changes causing the trigger of the exacerbation. 2. History of allergic rhinitis. 3. Obstructive sleep apnea disorder as well. 4. Frequent hospitalization was noted as well to rule out vocal cord dysfunction as well. 5. Chronic obesity. PLAN OF MANAGEMENT: Certainly at this time, the patient seems to be doing very well. The patient could be discharged and tapering dose of prednisone if agreeable by the primary care physician. Continuation of bronchodilators at same frequency. The patient could bring his own CPAP from home use. All other supportive therapy, plan and management as in progress will be continued. Usual care. [place], [place] REPORT OF CONSULTATION NAME: ISAAC FRANKLIN UNIT #: [id number] ROOM: 516 DOCTOR: TEJINDER PYLE MD BIRTHDATE: [birth year] TEJINDER BARRIOS MD CM:CONSTR:REPORT OF CONSULTATION 1058 08/30/17 1312 interface
[~2017-08-29 14:34] MED LIST changes: +LEVOFLOXACIN500 MG PO; +SYMBICORT INH
[2017-08-29 14:42] VITALS: BP 152/97
[2017-08-29] MEDS ORDERED: PREDNISONE10 MG PO (14:54)
[2017-08-29 15:06] LABS: BASO % 0.1 % (0.0-1.0); HEMATOCRIT 42.2 % (42.0-52.0); HEMOGLOBIN 14.2 g/dl (14.0-18.0); MEAN CELL VOLUME 90.4 fl (80.0-94.0); MEAN CORPUSCULAR HGB 30.4 pg (27.0-31.0); MEAN CORPUSCULAR HGB CONC 33.6 g/dl (33.0-37.0); MEAN PLATELET VOLUME 10.7 fl (9.6-12.3); MONO # 0.4 10*3/uL (0.1-1.0); MONO % 5.1 % (3.0-9.0); NEUT # 5.4 10*3/uL (2.3-7.9); NEUT % 78.9 % (47.0-73.0); PLATELET COUNT AUTOMATED 125 10*3/uL (130-400); RED BLOOD COUNT 4.67 10*6/uL (4.50-5.90); RED CELL DISTRI WIDTH 12.7 % (0-14.5); WHITE BLOOD COUNT 6.8 10*3/uL (4.8-10.8)
[2017-08-29] MEDS ORDERED: ROPINIROLE HYDRO1 MG PO (15:19)
[2017-08-29 15:20] LABS: ACT PARTIAL THROMBO TIME 23.7 SECONDS (20.8-31.5)
[2017-08-29 15:21] VITALS: BP 147/82
[2017-08-29 15:35] LABS: ALBUMIN 3.3 gm/dl (3.1-4.5); ALKALINE PHOSPHATASE 100 U/L (45-117); BUN 24 mg/dl (7-24); CHLORIDE 101 mmol/L (98-107); CREATININE 1.32 mg/dL (0.70-1.30); POTASSIUM 4.1 mmol/L (3.5-5.1); SGOT/AST 18 IU/L (3-35); SGPT/ALT 31 U/L (12-78); SODIUM 137 mmol/L (136-145); TOTAL PROTEIN 6.4 gm/dL (6.4-8.2)
[2017-08-29 15:43] LABS: TROPONIN I < 0.015 ng/ml (<0.045)
[2017-08-29 16:00] VITALS: BP 147/105
--- NOTE | 2017-08-29 16:00 | NUR ---
A 71, admitted to , under the services of GLYNN Villeda DO with a diagnosis of ASTHMA EXACERBATION. Chief complaint is SOB. Patient arrived via bed from ER. Monitor applied. Initial assessment completed. Vital signs taken and recorded. GLYNN VILLEDA DO notified of admission to the unit. Orders received. See assessment for past medical history, medications and allergies. Patient and/or family oriented to unit. [facility]. Clothing/patient valuable form completed. ANAY RAMOS
--- NOTE | 2017-08-29 16:21 | NUR ---
DR. BARRIOS NOTIFIED OF CONSULT. NO CONCERNS FROM DR. BARRIOS.
[2017-08-29 20:00] VITALS: BP 156/112
[2017-08-30] VITALS: BP 131/95
[2017-08-30 06:41] LABS: BASO % 0.3 % (0.0-1.0); EOS # 0.1 10*3/uL (0.0-0.4); EOS % 0.7 % (1.0-4.0); HEMATOCRIT 40.3 % (42.0-52.0); HEMOGLOBIN 13.5 g/dl (14.0-18.0); LYMPH # 2.1 10*3/uL (1.3-4.4); LYMPH % 29.8 % (27.0-41.0); MEAN CELL VOLUME 89.4 fl (80.0-94.0); MEAN CORPUSCULAR HGB 29.9 pg (27.0-31.0); MEAN CORPUSCULAR HGB CONC 33.5 g/dl (33.0-37.0); MEAN PLATELET VOLUME 10.7 fl (9.6-12.3); MONO # 0.5 10*3/uL (0.1-1.0); MONO % 7.4 % (3.0-9.0); NEUT # 4.2 10*3/uL (2.3-7.9); NEUT % 60.6 % (47.0-73.0); PLATELET COUNT AUTOMATED 112 10*3/uL (130-400); RED BLOOD COUNT 4.51 10*6/uL (4.50-5.90); RED CELL DISTRI WIDTH 12.9 % (0-14.5); WHITE BLOOD COUNT 6.9 10*3/uL (4.8-10.8)
[2017-08-30 07:02] LABS: BUN 23 mg/dl (7-24); CHLORIDE 102 mmol/L (98-107); CHOLESTEROL 136 mg/dL (<200); CREATININE 1.11 mg/dL (0.70-1.30); HDL CHOLESTEROL 55 mg/dl (40-60); LDL CHOLESTEROL 54 mg/dL (9-159); POTASSIUM 4.1 mmol/L (3.5-5.1); SODIUM 138 mmol/L (136-145); TRIGLYCERIDES 137 mg/dl (<150); VLDL CHOLESTEROL 27 mg/dL (6-40)
[2017-08-30 07:41] LABS: ACT PARTIAL THROMBO TIME 23.5 SECONDS (20.8-31.5); VITAMIN D, 25-HYDROXY 30.1 ng/mL (30-100)
[2017-08-30 08:00] VITALS: BP 138/86
--- NOTE | 2017-08-30 09:00 | NUR ---
Chalker Soles in to talk to patient. Patient states lives at home with . There are few steps in the home. Physician: kimberlyn Pharmacy: [facility] health services: none Patient's level of ADLs: INDEPENDENT Patient has working utilities: all working DME: cpap/nebulizer Follow-up physician's appointment after d/c: will be made by hospitalist nurse director upon discharge Does patient want to access PORTAL?: no Discharge plan discussed with patient, patient lives at home with , is independent in adls and ambulation, has a nebulizer and cpap at home, no home oxygen, patient states he will be going back home when able and denies any home needs. TOMY BURGESS
[2017-08-30] MEDS ORDERED: PREDNISONE10 MG PO (11:31)
--- NOTE | 2017-08-30 13:12 | NUR ---
Discharge instructions reviewed with patient/family. Patient receptive and verbalizes understanding. Follow-up care arranged. Written instructions given to patient/family. ANAY RAMOS
== END 2017-08-30 13:33 | disposition home or self-care (01) | DRG 202 ==
LOC: ED 14:34 → 5E 15:02 → EDHOLD 15:02 → 5E 15:20
PROVIDERS: Emergency Medicine; Internal Medicine; ADMIT Internal Medicine
DX: J45.901 Unspecified asthma with (acute) exacerbation (principal); R65.10 Systemic inflammatory response syndrome (SIRS) of non-infectious origin without acute organ dysfunction; E11.22 Type 2 diabetes mellitus with diabetic chronic kidney disease; E11.40 Type 2 diabetes mellitus with diabetic neuropathy, unspecified; N18.3 Chronic kidney disease, stage 3 (moderate); E44.1 Mild protein-calorie malnutrition; E66.01 Morbid (severe) obesity due to excess calories; E11.65 Type 2 diabetes mellitus with hyperglycemia; N40.0 Benign prostatic hyperplasia without lower urinary tract symptoms; F32.9 Major depressive disorder, single episode, unspecified; K21.9 Gastro-esophageal reflux disease without esophagitis; M10.9 Gout, unspecified; E78.00 Pure hypercholesterolemia, unspecified; E83.41 Hypermagnesemia; G47.00 Insomnia, unspecified; G47.33 Obstructive sleep apnea (adult) (pediatric); F43.10 Post-traumatic stress disorder, unspecified; G25.81 Restless legs syndrome; Z96.653 Presence of artificial knee joint, bilateral; Z82.49 Family history of ischemic heart disease and other diseases of the circulatory system; Z88.8 Allergy status to other drugs, medicaments and biological substances; Z79.2 Long term (current) use of antibiotics; Z79.82 Long term (current) use of aspirin; Z79.899 Other long term (current) drug therapy; Z98.49 Cataract extraction status, unspecified eye; Z83.3 Family history of diabetes mellitus; Z80.1 Family history of malignant neoplasm of trachea, bronchus and lung

== ENCOUNTER 2017-08-31 15:07 | Emergency (ER) | payer MEDICARE ==
[~2017-08-31] VITALS: Ht 144.7 cm; Wt 113.4 kg
[~2017-08-31 15:07] MED LIST changes: +ROPINIROLE HYDRO1 MG PO
[2017-08-31 15:31] VITALS: BP 151/84
== END 2017-08-31 16:46 | disposition home or self-care (01) ==
LOC: ED 15:07
DX: S46.211A Strain of muscle, fascia and tendon of other parts of biceps, right arm, initial encounter (principal); S46.011A Strain of muscle(s) and tendon(s) of the rotator cuff of right shoulder, initial encounter; J44.9 Chronic obstructive pulmonary disease, unspecified; Z96.653 Presence of artificial knee joint, bilateral; Z98.890 Other specified postprocedural states; Z79.82 Long term (current) use of aspirin; Z79.899 Other long term (current) drug therapy; Z88.8 Allergy status to other drugs, medicaments and biological substances; X50.0XXA Overexertion from strenuous movement or load, initial encounter; Y93.89 Activity, other specified; Y92.89 Other specified places as the place of occurrence of the external cause; Y99.9 Unspecified external cause status

== ENCOUNTER 2017-09-07 12:30 | Emergency (ER) | payer MEDICARE ==
[~2017-09-07] VITALS: Ht 175.2 cm; Wt 115.2 kg
--- NOTE | ~2017-09-07 | EKG ---
[place], [place] ELECTROCARDIOGRAM REPORT NAME: ISAAC FRANKLIN UNIT #: [id number] ROOM: DOCTOR: XOCHITL TRUONG MD BIRTHDATE: [birth year] DOS: 09/07/2017 TIME: 1342 hours. Normal sinus rhythm at 92 beats per minute. The tracing is normal. No previous tracing is available for comparison. XOCHITL TRUONG MD CM:EKGRPT:ELECTROCARDIOGRAM REPORT [id number] 1938 XOCHITL TRUONG MD
[2017-09-07 13:30] VITALS: BP 148/98
[2017-09-07 13:45] LABS: BASO % 0.2 % (0.0-1.0); HEMATOCRIT 41.1 % (42.0-52.0); HEMOGLOBIN 13.8 g/dl (14.0-18.0); LYMPH # 0.6 10*3/uL (1.3-4.4); LYMPH % 9.6 % (27.0-41.0); MEAN CELL VOLUME 89.3 fl (80.0-94.0); MEAN CORPUSCULAR HGB CONC 33.6 g/dl (33.0-37.0); MEAN PLATELET VOLUME 10.3 fl (9.6-12.3); MONO # 0.2 10*3/uL (0.1-1.0); MONO % 3.1 % (3.0-9.0); NEUT # 5.5 10*3/uL (2.3-7.9); NEUT % 85.9 % (47.0-73.0); PLATELET COUNT AUTOMATED 114 10*3/uL (130-400); RED CELL DISTRI WIDTH 13.1 % (0-14.5); WHITE BLOOD COUNT 6.4 10*3/uL (4.8-10.8)
[2017-09-07 14:01] LABS: ALBUMIN 3.4 gm/dl (3.1-4.5); ALKALINE PHOSPHATASE 102 U/L (45-117); BUN 24 mg/dl (7-24); CHLORIDE 103 mmol/L (98-107); CREATININE 1.19 mg/dL (0.70-1.30); POTASSIUM 4.4 mmol/L (3.5-5.1); SGOT/AST 18 IU/L (3-35); SGPT/ALT 38 U/L (12-78); SODIUM 138 mmol/L (136-145); TOTAL PROTEIN 6.4 gm/dL (6.4-8.2)
[2017-09-07 14:04] LABS: TROPONIN I < 0.015 ng/ml (<0.045)
== END 2017-09-07 15:12 | disposition home or self-care (01) ==
LOC: ED 12:30
PROVIDERS: Nurse Practitioner Family
DX: Z04.1 Encounter for examination and observation following transport accident (principal); J44.9 Chronic obstructive pulmonary disease, unspecified; M25.511 Pain in right shoulder; Z96.653 Presence of artificial knee joint, bilateral; Z98.890 Other specified postprocedural states; Z79.82 Long term (current) use of aspirin; Z79.899 Other long term (current) drug therapy; Z88.8 Allergy status to other drugs, medicaments and biological substances; V49.88XA Car occupant (driver) (passenger) injured in other specified transport accidents, initial encounter; Y93.89 Activity, other specified; Y92.413 State road as the place of occurrence of the external cause; Y99.9 Unspecified external cause status

== ENCOUNTER 2017-10-22 21:01 | Emergency (ER) | payer MEDICARE ==
[~2017-10-22] VITALS: Ht 175.2 cm; Wt 117.9 kg
[2017-10-22 21:10] VITALS: BP 175/93
[2017-10-22 22:13] LABS: BASO % 0.4 % (0.0-1.0); EOS % 0.8 % (1.0-4.0); HEMATOCRIT 34.3 % (42.0-52.0); HEMOGLOBIN 11.6 g/dl (14.0-18.0); LYMPH # 1.2 10*3/uL (1.3-4.4); LYMPH % 24.1 % (27.0-41.0); MEAN CELL VOLUME 91.2 fl (80.0-94.0); MEAN CORPUSCULAR HGB 30.9 pg (27.0-31.0); MEAN CORPUSCULAR HGB CONC 33.8 g/dl (33.0-37.0); MEAN PLATELET VOLUME 10.7 fl (9.6-12.3); MONO # 0.4 10*3/uL (0.1-1.0); MONO % 8.6 % (3.0-9.0); NEUT # 3.2 10*3/uL (2.3-7.9); NEUT % 65.5 % (47.0-73.0); PLATELET COUNT AUTOMATED 127 10*3/uL (130-400); RED BLOOD COUNT 3.76 10*6/uL (4.50-5.90); RED CELL DISTRI WIDTH 13.6 % (0-14.5); WHITE BLOOD COUNT 4.9 10*3/uL (4.8-10.8)
[2017-10-22 22:29] LABS: BUN 9 mg/dl (7-24); CHLORIDE 108 mmol/L (98-107); CREATININE 1.14 mg/dL (0.70-1.30); POTASSIUM 3.7 mmol/L (3.5-5.1); SODIUM 143 mmol/L (136-145); TROPONIN I < 0.015 ng/ml (<0.045)
[2017-10-22] MEDS ORDERED: KEFLEX500 M1 PO (23:08)
== END 2017-10-22 23:30 | disposition home or self-care (01) ==
LOC: ED 21:01
PROVIDERS: Student in an Organized Health Care Education/Training Program
DX: L03.115 Cellulitis of right lower limb (principal); I50.9 Heart failure, unspecified; I13.0 Hypertensive heart and chronic kidney disease with heart failure and stage 1 through stage 4 chronic kidney disease, or unspecified chronic kidney disease; E11.22 Type 2 diabetes mellitus with diabetic chronic kidney disease; N18.3 Chronic kidney disease, stage 3 (moderate); K21.9 Gastro-esophageal reflux disease without esophagitis; E78.00 Pure hypercholesterolemia, unspecified; E11.40 Type 2 diabetes mellitus with diabetic neuropathy, unspecified; J45.909 Unspecified asthma, uncomplicated; M10.9 Gout, unspecified; Z77.22 Contact with and (suspected) exposure to environmental tobacco smoke (acute) (chronic); Z88.8 Allergy status to other drugs, medicaments and biological substances; Z79.899 Other long term (current) drug therapy; Z79.82 Long term (current) use of aspirin

== ENCOUNTER 2017-10-29 10:50 | Inpatient (IN) | payer MEDICARE ==
[~2017-10-29] VITALS: Ht 175.2 cm; Wt 116.6 kg
[~2017-10-29 10:50] MED LIST changes: +KEFLEX500 M1 PO
[2017-10-29 11:00] VITALS: BP 136/91
[2017-10-29] MEDS ORDERED: ZYLOPRIM100 MG PO (11:04)
[2017-10-29] MEDS ORDERED: PROAIR HFA8.5 GM INH (11:04)
[2017-10-29] MEDS ORDERED: Sinemet Cr 25-11 TAB PO (11:05)
[2017-10-29] MEDS ORDERED: ASPIRIN325 M2 PO (11:05)
[2017-10-29] MEDS ORDERED: COREG6.25 MG PO (11:05)
[2017-10-29] MEDS ORDERED: ALLER-FLO15.8 ML NAS (11:06)
[2017-10-29] MEDS ORDERED: GABAPENTIN100 M2 PO (11:07)
[2017-10-29] MEDS ORDERED: Glipizide2.5 MG PO (11:07)
[2017-10-29] MEDS ORDERED: METFORMIN500 MG PO (11:07)
[2017-10-29] MEDS ORDERED: PANTOPRAZOLE SO40 MG PO (11:07)
[2017-10-29] MEDS ORDERED: TAMSULOSIN HCL0.4 MG PO (11:08)
[2017-10-29] MEDS ORDERED: SIMVASTATIN40 MG PO (11:08)
[2017-10-29] MEDS ORDERED: ROPINIROLE HYD0.5 MG PO (11:08)
[2017-10-29] MEDS ORDERED: SERTRALINE HYDR50 MG PO (11:08)
[2017-10-29] MEDS ORDERED: VALSARTAN80 MG PO (11:09)
[2017-10-29] MEDS ORDERED: VITAMIN D400 UNI1 PO (11:09)
[2017-10-29 11:10] VITALS: BP 128/66; BP 136/91
[2017-10-29 11:13] LABS: BASO % 0.6 % (0.0-1.0); EOS # 0.1 10*3/uL (0.0-0.4); EOS % 0.9 % (1.0-4.0); HEMATOCRIT 36.1 % (42.0-52.0); HEMOGLOBIN 12.3 g/dl (14.0-18.0); LYMPH # 1.6 10*3/uL (1.3-4.4); LYMPH % 24.4 % (27.0-41.0); MEAN CELL VOLUME 91.2 fl (80.0-94.0); MEAN CORPUSCULAR HGB 31.1 pg (27.0-31.0); MEAN CORPUSCULAR HGB CONC 34.1 g/dl (33.0-37.0); MEAN PLATELET VOLUME 11.2 fl (9.6-12.3); MONO # 0.6 10*3/uL (0.1-1.0); MONO % 9.8 % (3.0-9.0); NEUT % 63.5 % (47.0-73.0); PLATELET COUNT AUTOMATED 157 10*3/uL (130-400); RED BLOOD COUNT 3.96 10*6/uL (4.50-5.90); RED CELL DISTRI WIDTH 13.5 % (0-14.5); WHITE BLOOD COUNT 6.4 10*3/uL (4.8-10.8)
[2017-10-29 11:22] LABS: ACT PARTIAL THROMBO TIME 26.3 SECONDS (20.8-31.5); INTERNATIONAL NORM RATIO 0.9 (2.0-3.5)
[2017-10-29 11:30] LABS: ALBUMIN 3.1 gm/dl (3.1-4.5); ALKALINE PHOSPHATASE 75 U/L (45-117); BUN 11 mg/dl (7-24); CHLORIDE 103 mmol/L (98-107); POTASSIUM 3.9 mmol/L (3.5-5.1); SGOT/AST 32 IU/L (3-35); SGPT/ALT 22 U/L (12-78); SODIUM 140 mmol/L (136-145); TOTAL PROTEIN 6.9 gm/dL (6.4-8.2)
[2017-10-29 11:38] LABS: TROPONIN I < 0.015 ng/ml (<0.045)
[2017-10-29 11:42] VITALS: BP 122/72
[2017-10-29 13:30] VITALS: BP 137/79
[2017-10-29] MEDS ORDERED: VITAMIN D31000 UNI1 PO (14:05)
[2017-10-29 16:00] VITALS: BP 130/68
[2017-10-29 20:00] VITALS: BP 122/60
[2017-10-30] VITALS: BP 126/68
[2017-10-30 05:55] LABS: BASO % 0.3 % (0.0-1.0); EOS # 0.1 10*3/uL (0.0-0.4); EOS % 0.6 % (1.0-4.0); HEMATOCRIT 37.3 % (42.0-52.0); HEMOGLOBIN 12.5 g/dl (14.0-18.0); LYMPH # 1.7 10*3/uL (1.3-4.4); LYMPH % 19.1 % (27.0-41.0); MEAN CELL VOLUME 91.9 fl (80.0-94.0); MEAN CORPUSCULAR HGB 30.8 pg (27.0-31.0); MEAN CORPUSCULAR HGB CONC 33.5 g/dl (33.0-37.0); MEAN PLATELET VOLUME 11.1 fl (9.6-12.3); MONO % 10.7 % (3.0-9.0); NEUT # 6.3 10*3/uL (2.3-7.9); NEUT % 68.7 % (47.0-73.0); PLATELET COUNT AUTOMATED 166 10*3/uL (130-400); RED BLOOD COUNT 4.06 10*6/uL (4.50-5.90); RED CELL DISTRI WIDTH 13.8 % (0-14.5); WHITE BLOOD COUNT 9.1 10*3/uL (4.8-10.8)
[2017-10-30 06:15] LABS: ALBUMIN 3.3 gm/dl (3.1-4.5); ALKALINE PHOSPHATASE 72 U/L (45-117); BUN 13 mg/dl (7-24); CHLORIDE 99 mmol/L (98-107); CHOLESTEROL 98 mg/dL (<200); CREATININE 1.25 mg/dL (0.70-1.30); FREE T4 1.07 ng/dl (0.76-1.46); HDL CHOLESTEROL 42 mg/dl (40-60); LDL CHOLESTEROL 34 mg/dL (9-159); PHOSPHOROUS 2.7 mg/dL (2.5-4.9); POTASSIUM 3.5 mmol/L (3.5-5.1); SGOT/AST 14 IU/L (3-35); SGPT/ALT 19 U/L (12-78); SODIUM 138 mmol/L (136-145); TOTAL PROTEIN 7.3 gm/dL (6.4-8.2); TRIGLYCERIDES 111 mg/dl (<150); VLDL CHOLESTEROL 22 mg/dL (6-40)
[2017-10-30 06:58] LABS: ACT PARTIAL THROMBO TIME 29.6 SECONDS (20.8-31.5)
[2017-10-30 07:34] LABS: VITAMIN D, 25-HYDROXY 14.5 ng/mL (30-100)
[2017-10-30 08:00] VITALS: BP 142/78
[2017-10-30] MEDS ORDERED: VALIUM5 MG PO (12:20)
[2017-10-30] MEDS ORDERED: PREDNISONE10 MG PO (12:20)
== END 2017-10-30 13:30 | disposition home or self-care (01) | DRG 552 ==
LOC: ED 10:50 → EDHOLD 12:01 → 5E 12:06
PROVIDERS: Emergency Medicine; Internal Medicine
DX: M54.89 Other dorsalgia (principal); E11.22 Type 2 diabetes mellitus with diabetic chronic kidney disease; E11.40 Type 2 diabetes mellitus with diabetic neuropathy, unspecified; E11.65 Type 2 diabetes mellitus with hyperglycemia; R07.89 Other chest pain; I25.10 Atherosclerotic heart disease of native coronary artery without angina pectoris; D64.9 Anemia, unspecified; G47.33 Obstructive sleep apnea (adult) (pediatric); N40.0 Benign prostatic hyperplasia without lower urinary tract symptoms; F32.9 Major depressive disorder, single episode, unspecified; E78.00 Pure hypercholesterolemia, unspecified; E55.9 Vitamin D deficiency, unspecified; E66.01 Morbid (severe) obesity due to excess calories; N18.3 Chronic kidney disease, stage 3 (moderate); I12.9 Hypertensive chronic kidney disease with stage 1 through stage 4 chronic kidney disease, or unspecified chronic kidney disease; M62.838 Other muscle spasm; J44.9 Chronic obstructive pulmonary disease, unspecified; K21.9 Gastro-esophageal reflux disease without esophagitis; M10.9 Gout, unspecified; G47.00 Insomnia, unspecified; Z77.22 Contact with and (suspected) exposure to environmental tobacco smoke (acute) (chronic); F43.10 Post-traumatic stress disorder, unspecified; G25.81 Restless legs syndrome; Z96.653 Presence of artificial knee joint, bilateral; Z80.1 Family history of malignant neoplasm of trachea, bronchus and lung; Z82.49 Family history of ischemic heart disease and other diseases of the circulatory system; Z88.8 Allergy status to other drugs, medicaments and biological substances; Z79.52 Long term (current) use of systemic steroids; Z79.82 Long term (current) use of aspirin; Z79.899 Other long term (current) drug therapy; Z79.84 Long term (current) use of oral hypoglycemic drugs; Z86.73 Personal history of transient ischemic attack (TIA), and cerebral infarction without residual deficits; Z87.828 Personal history of other (healed) physical injury and trauma; Z83.3 Family history of diabetes mellitus; Z98.42 Cataract extraction status, left eye; Z98.41 Cataract extraction status, right eye; Z68.37 Body mass index [BMI] 37.0-37.9, adult

== ENCOUNTER 2017-11-03 17:08 | Inpatient (IN) | payer MEDICARE ==
[~2017-11-03] VITALS: Ht 175.3 cm; Wt 117.9 kg
[2017-11-03] VITALS (7 sets, daily range): BP systolic 127–168; BP diastolic 83–107
[~2017-11-03 17:08] MED LIST changes: +ALLER-FLO15.8 ML NAS; +Glipizide2.5 MG PO; +PROAIR HFA8.5 GM INH; +ROPINIROLE HYD0.5 MG PO; +SIMVASTATIN40 MG PO; +Sinemet Cr 25-11 TAB PO; +TAMSULOSIN HCL0.4 MG PO; +VALIUM5 MG PO; +VITAMIN D31000 UNI1 PO; +VITAMIN D400 UNI1 PO
[2017-11-03 19:02] LABS: BASO % 0.1 % (0.0-1.0); HEMOGLOBIN 11.1 g/dl (14.0-18.0); LYMPH % 11.9 % (27.0-41.0); MEAN CELL VOLUME 90.2 fl (80.0-94.0); MEAN CORPUSCULAR HGB 30.3 pg (27.0-31.0); MEAN CORPUSCULAR HGB CONC 33.6 g/dl (33.0-37.0); MEAN PLATELET VOLUME 10.4 fl (9.6-12.3); MONO # 0.4 10*3/uL (0.1-1.0); MONO % 4.7 % (3.0-9.0); NEUT # 6.9 10*3/uL (2.3-7.9); NEUT % 81.5 % (47.0-73.0); PLATELET COUNT AUTOMATED 233 10*3/uL (130-400); RED BLOOD COUNT 3.66 10*6/uL (4.50-5.90); RED CELL DISTRI WIDTH 13.2 % (0-14.5); WHITE BLOOD COUNT 8.5 10*3/uL (4.8-10.8)
[2017-11-03 19:20] LABS: ALBUMIN 2.8 gm/dl (3.1-4.5); ALKALINE PHOSPHATASE 99 U/L (45-117); BUN 23 mg/dl (7-24); CHLORIDE 104 mmol/L (98-107); CREATININE 1.24 mg/dL (0.70-1.30); POTASSIUM 4.2 mmol/L (3.5-5.1); SGOT/AST 18 IU/L (3-35); SGPT/ALT 29 U/L (12-78); SODIUM 139 mmol/L (136-145); TOTAL PROTEIN 6.4 gm/dL (6.4-8.2)
[2017-11-03 19:23] LABS: TROPONIN I 0.095 ng/ml (<0.045)
[2017-11-04] VITALS: BP 145/89
[2017-11-04 07:29] LABS: BASO # 0.1 10*3/uL (0.0-0.1); BASO % 0.5 % (0.0-1.0); EOS % 0.4 % (1.0-4.0); HEMATOCRIT 34.8 % (42.0-52.0); HEMOGLOBIN 11.9 g/dl (14.0-18.0); MEAN CELL VOLUME 90.6 fl (80.0-94.0); MEAN CORPUSCULAR HGB CONC 34.2 g/dl (33.0-37.0); MEAN PLATELET VOLUME 10.8 fl (9.6-12.3); MONO # 0.7 10*3/uL (0.1-1.0); MONO % 6.9 % (3.0-9.0); NEUT # 7.2 10*3/uL (2.3-7.9); NEUT % 70.6 % (47.0-73.0); NUCLEATED RED BLOOD CELL 0.2 % (0.0-0.0); PLATELET COUNT AUTOMATED 250 10*3/uL (130-400); RED BLOOD COUNT 3.84 10*6/uL (4.50-5.90); RED CELL DISTRI WIDTH 13.2 % (0-14.5); WHITE BLOOD COUNT 10.2 10*3/uL (4.8-10.8)
[2017-11-04 07:45] LABS: ALBUMIN 3.1 gm/dl (3.1-4.5); BUN 23 mg/dl (7-24); CHLORIDE 105 mmol/L (98-107); HDL CHOLESTEROL 37 mg/dl (40-60); POTASSIUM 3.5 mmol/L (3.5-5.1); SGOT/AST 20 IU/L (3-35); SODIUM 144 mmol/L (136-145)
[2017-11-04 07:50] LABS: INTERNATIONAL NORM RATIO 1.1 (2.0-3.5)
[2017-11-04 07:53] LABS: ALKALINE PHOSPHATASE 85 U/L (45-117); CHOLESTEROL 108 mg/dL (<200); LDL CHOLESTEROL 38 mg/dL (9-159); PHOSPHOROUS 3.1 mg/dL (2.5-4.9); SGPT/ALT 28 U/L (12-78); TOTAL PROTEIN 6.7 gm/dL (6.4-8.2); TRIGLYCERIDES 166 mg/dl (<150); VLDL CHOLESTEROL 33 mg/dL (6-40)
[2017-11-04 08:00] VITALS: BP 138/79
[2017-11-04 12:00] VITALS: BP 135/71
[2017-11-04 12:12] LABS: VITAMIN D, 25-HYDROXY 21.4 ng/mL (30-100)
[2017-11-04] MEDS ORDERED: ATORVASTATIN CA80 M1 PO (15:01)
[2017-11-04] MEDS ORDERED: ASPIRIN ADULT L81 M2 PO (15:47)
[2017-11-04] MEDS ORDERED: PLAVIX75 M1 PO (15:48)
[2017-11-04] MEDS ORDERED: IMDUR SA30 MG PO (15:48)
[2017-11-04 16:00] VITALS: BP 136/75
== END 2017-11-04 16:38 | disposition short-term general hospital (02) | DRG 871 ==
LOC: ED 17:08 → 5E 20:35 → EDHOLD 20:35 → 5E 20:41
PROVIDERS: Emergency Medicine; Hospitalist
PROC: 4A02XM4 Measurement of Cardiac Total Activity, External Approach (ICD-10-PCS; principal; 2017-11-04)
PROC: 3E073KZ Introduction of Other Diagnostic Substance into Coronary Artery, Percutaneous Approach (ICD-10-PCS; principal; 2017-11-04)
DX: A41.9 Sepsis, unspecified organism (principal); J18.9 Pneumonia, unspecified organism; I21.4 Non-ST elevation (NSTEMI) myocardial infarction; E43 Unspecified severe protein-calorie malnutrition; E11.65 Type 2 diabetes mellitus with hyperglycemia; E11.42 Type 2 diabetes mellitus with diabetic polyneuropathy; E11.22 Type 2 diabetes mellitus with diabetic chronic kidney disease; D64.9 Anemia, unspecified; N18.3 Chronic kidney disease, stage 3 (moderate); F43.10 Post-traumatic stress disorder, unspecified; E66.01 Morbid (severe) obesity due to excess calories; I12.9 Hypertensive chronic kidney disease with stage 1 through stage 4 chronic kidney disease, or unspecified chronic kidney disease; G25.81 Restless legs syndrome; E78.2 Mixed hyperlipidemia; F32.9 Major depressive disorder, single episode, unspecified; M10.9 Gout, unspecified; G47.00 Insomnia, unspecified; F41.9 Anxiety disorder, unspecified; N40.1 Benign prostatic hyperplasia with lower urinary tract symptoms; K21.9 Gastro-esophageal reflux disease without esophagitis; J41.8 Mixed simple and mucopurulent chronic bronchitis; G47.33 Obstructive sleep apnea (adult) (pediatric); I25.10 Atherosclerotic heart disease of native coronary artery without angina pectoris; Z96.653 Presence of artificial knee joint, bilateral; Z82.49 Family history of ischemic heart disease and other diseases of the circulatory system; Z79.51 Long term (current) use of inhaled steroids; Z79.82 Long term (current) use of aspirin; Z79.84 Long term (current) use of oral hypoglycemic drugs; Z79.899 Other long term (current) drug therapy; Z88.8 Allergy status to other drugs, medicaments and biological substances; Z80.1 Family history of malignant neoplasm of trachea, bronchus and lung; Z98.890 Other specified postprocedural states; Z68.38 Body mass index [BMI] 38.0-38.9, adult

== ENCOUNTER → 2018-01-25 | Outpatient (CLI) | payer MEDICARE ==
[~2018-01-25] MED LIST changes: +ASPIRIN ADULT L81 M2 PO; +ATORVASTATIN CA80 M1 PO; +IMDUR SA30 MG PO; +PLAVIX75 M1 PO
[2018-01-25 11:27] LABS: BUN 15 mg/dl (7-24); CHLORIDE 96 mmol/L (98-107); CREATININE 1.14 mg/dL (0.70-1.30); POTASSIUM 3.3 mmol/L (3.5-5.1); SODIUM 136 mmol/L (136-145)
== END | disposition home or self-care (01) ==
LOC: LAB 10:43
DX: I10 Essential (primary) hypertension (principal)

== ENCOUNTER → 2018-02-01 | Outpatient (CLI) | payer MEDICARE ==
[~2018-02-01] MED LIST changes: +DOXYCYCLINE100 M3 PO; +ELIQUIS5 M1 PO; +FUROSEMIDE20 M1 PO; +KLOR-CON M2020 ME1 PO; +METOPROLOL SUCC25 M2 PO; +MULTIVITAMINS1 EAC5 PO; +TYLENOL325 M3 PO; +VITAMIN D-32000 UNIT PO
[2018-02-01 12:34] LABS: BUN 23 mg/dl (7-24); CHLORIDE 104 mmol/L (98-107); CREATININE 1.14 mg/dL (0.70-1.30); POTASSIUM 3.7 mmol/L (3.5-5.1); SODIUM 141 mmol/L (136-145)
== END | disposition home or self-care (01) ==
LOC: LAB 11:12
DX: E87.6 Hypokalemia (principal)

== ENCOUNTER 2018-02-03 18:47 | Inpatient (IN) | payer MEDICARE ==
[2018-02-03] VITALS (8 sets, daily range): BP systolic 105–161; BP diastolic 67–83
[~2018-02-03] VITALS: Ht 175.3 cm; Wt 106.3 kg
[~2018-02-03 18:47] MED LIST changes: -DOXYCYCLINE100 M3 PO; -ELIQUIS5 M1 PO; -FUROSEMIDE20 M1 PO; -KLOR-CON M2020 ME1 PO; -METOPROLOL SUCC25 M2 PO; -MULTIVITAMINS1 EAC5 PO; -TYLENOL325 M3 PO; -VITAMIN D-32000 UNIT PO
[2018-02-03 19:23] LABS: BASO % 0.3 % (0.0-1.0); EOS # 0.1 10*3/uL (0.0-0.4); EOS % 1.5 % (1.0-4.0); HEMATOCRIT 30.2 % (42.0-52.0); HEMOGLOBIN 9.3 g/dl (14.0-18.0); LYMPH # 1.5 10*3/uL (1.3-4.4); LYMPH % 21.3 % (27.0-41.0); MEAN CELL VOLUME 80.5 fl (80.0-94.0); MEAN CORPUSCULAR HGB 24.8 pg (27.0-31.0); MEAN CORPUSCULAR HGB CONC 30.8 g/dl (33.0-37.0); MEAN PLATELET VOLUME 10.2 fl (9.6-12.3); MONO # 0.7 10*3/uL (0.1-1.0); MONO % 9.1 % (3.0-9.0); NEUT # 4.8 10*3/uL (2.3-7.9); NEUT % 67.5 % (47.0-73.0); PLATELET COUNT AUTOMATED 178 10*3/uL (130-400); RED BLOOD COUNT 3.75 10*6/uL (4.50-5.90); RED CELL DISTRI WIDTH 14.7 % (0-14.5); WHITE BLOOD COUNT 7.1 10*3/uL (4.8-10.8)
[2018-02-03 19:51] LABS: ALBUMIN 3.2 gm/dl (3.1-4.5); ALKALINE PHOSPHATASE 105 U/L (45-117); BUN 14 mg/dl (7-24); CHLORIDE 104 mmol/L (98-107); CREATININE 1.12 mg/dL (0.70-1.30); LIPASE 142 U/L (73-393); POTASSIUM 3.9 mmol/L (3.5-5.1); SGOT/AST 25 IU/L (3-35); SGPT/ALT 36 U/L (12-78); SODIUM 140 mmol/L (136-145); TOTAL PROTEIN 6.6 gm/dL (6.4-8.2)
[2018-02-03 19:56] LABS: TROPONIN I < 0.015 ng/ml (<0.045)
[2018-02-03 20:56] LABS: BILIRUBIN NEGATIVE (NEGATIVE); BLOOD NEGATIVE (NEGATIVE); CLARITY SL CLOUDY (CLEAR); COLOR YELLOW (YELLOW); GLUCOSE NEGATIVE (NEGATIVE); KETONE NEGATIVE (NEGATIVE); LEUKO ESTERASE NEGATIVE (NEGATIVE); NITRITE NEGATIVE (NEGATIVE); PH 5.5 (5.0-9.0); UROBILINOGEN 0.2 E.U./dl (0.2-1.0)
[2018-02-03 21:27] LABS: BACTERIA 2+; EPITHELIAL CELLS 0-2; MUCOUS TRACE; RBC 0-2 rbc/hpf (0-2)
[2018-02-03] MEDS ORDERED: TYLENOL325 M3 PO (23:18)
[2018-02-03] MEDS ORDERED: MULTIVITAMINS1 EAC5 PO (23:22)
[2018-02-04 01:45] LABS: BASO % 0.5 % (0.0-1.0); EOS # 0.1 10*3/uL (0.0-0.4); EOS % 1.4 % (1.0-4.0); HEMATOCRIT 32.6 % (42.0-52.0); HEMOGLOBIN 10.1 g/dl (14.0-18.0); LYMPH # 1.5 10*3/uL (1.3-4.4); LYMPH % 21.1 % (27.0-41.0); MEAN CELL VOLUME 80.1 fl (80.0-94.0); MEAN CORPUSCULAR HGB 24.8 pg (27.0-31.0); MEAN PLATELET VOLUME 10.5 fl (9.6-12.3); MONO # 0.8 10*3/uL (0.1-1.0); MONO % 10.8 % (3.0-9.0); NEUT # 4.8 10*3/uL (2.3-7.9); NEUT % 65.9 % (47.0-73.0); PLATELET COUNT AUTOMATED 199 10*3/uL (130-400); RED BLOOD COUNT 4.07 10*6/uL (4.50-5.90); RED CELL DISTRI WIDTH 14.6 % (0-14.5); WHITE BLOOD COUNT 7.3 10*3/uL (4.8-10.8)
[2018-02-04 02:01] LABS: BUN 15 mg/dl (7-24); CHLORIDE 101 mmol/L (98-107); CREATININE 1.29 mg/dL (0.70-1.30); POTASSIUM 3.6 mmol/L (3.5-5.1); SODIUM 141 mmol/L (136-145)
[2018-02-04 02:02] LABS: PHOSPHOROUS 3.3 mg/dL (2.5-4.9)
[2018-02-04 08:00] VITALS: BP 129/74
[2018-02-04 12:00] VITALS: BP 123/58
[2018-02-04 16:00] VITALS: BP 104/50
[2018-02-04 20:00] VITALS: BP 104/50
[2018-02-05] VITALS: BP 118/69
[2018-02-05 06:13] LABS: BASO % 0.5 % (0.0-1.0); EOS # 0.1 10*3/uL (0.0-0.4); EOS % 1.8 % (1.0-4.0); HEMATOCRIT 29.9 % (42.0-52.0); HEMOGLOBIN 9.1 g/dl (14.0-18.0); LYMPH # 1.5 10*3/uL (1.3-4.4); LYMPH % 22.3 % (27.0-41.0); MEAN CELL VOLUME 79.7 fl (80.0-94.0); MEAN CORPUSCULAR HGB 24.3 pg (27.0-31.0); MEAN CORPUSCULAR HGB CONC 30.4 g/dl (33.0-37.0); MEAN PLATELET VOLUME 11.1 fl (9.6-12.3); MONO # 0.7 10*3/uL (0.1-1.0); MONO % 10.8 % (3.0-9.0); NEUT # 4.3 10*3/uL (2.3-7.9); NEUT % 64.3 % (47.0-73.0); PLATELET COUNT AUTOMATED 190 10*3/uL (130-400); RED BLOOD COUNT 3.75 10*6/uL (4.50-5.90); RED CELL DISTRI WIDTH 14.9 % (0-14.5); WHITE BLOOD COUNT 6.6 10*3/uL (4.8-10.8)
[2018-02-05 06:43] LABS: ALBUMIN 3.1 gm/dl (3.1-4.5); BUN 19 mg/dl (7-24); CHLORIDE 99 mmol/L (98-107); POTASSIUM 3.1 mmol/L (3.5-5.1); SODIUM 139 mmol/L (136-145)
[2018-02-05 06:47] LABS: ALKALINE PHOSPHATASE 103 U/L (45-117); CREATININE 1.33 mg/dL (0.70-1.30); PHOSPHOROUS 3.8 mg/dL (2.5-4.9); SGOT/AST 20 IU/L (3-35); SGPT/ALT 29 U/L (12-78); TOTAL PROTEIN 6.7 gm/dL (6.4-8.2)
[2018-02-05 08:00] VITALS: BP 120/58
[2018-02-05 12:00] VITALS: BP 114/65
[2018-02-05 16:00] VITALS: BP 110/59
[2018-02-05 20:00] VITALS: BP 117/62
[2018-02-06] VITALS: BP 122/65
[2018-02-06 07:13] LABS: BUN 18 mg/dl (7-24); CHLORIDE 99 mmol/L (98-107); CREATININE 1.24 mg/dL (0.70-1.30); POTASSIUM 3.3 mmol/L (3.5-5.1); SODIUM 137 mmol/L (136-145)
[2018-02-06 08:00] VITALS: BP 117/66
[2018-02-06 12:00] VITALS: BP 107/76
[2018-02-06] MEDS ORDERED: VITAMIN D-32000 UNIT PO (15:48)
[2018-02-06] MEDS ORDERED: KLOR-CON M2020 ME1 PO (15:48)
[2018-02-06] MEDS ORDERED: ELIQUIS5 M1 PO (15:48)
[2018-02-06] MEDS ORDERED: FUROSEMIDE20 M1 PO (15:48)
[2018-02-06] MEDS ORDERED: METOPROLOL SUCC25 M2 PO (15:48)
[2018-02-06] MEDS ORDERED: DOXYCYCLINE100 M3 PO (15:48)
== END 2018-02-06 17:31 | disposition home or self-care (01) | DRG 291 ==
LOC: ED 18:47 → 4E 22:10 → EDHOLD 22:10 → 4E 22:23
PROVIDERS: Emergency Medicine Emergency Medical Services; Hospitalist; Internal Medicine; Student in an Organized Health Care Education/Training Program
DX: I13.0 Hypertensive heart and chronic kidney disease with heart failure and stage 1 through stage 4 chronic kidney disease, or unspecified chronic kidney disease (principal); I50.33 Acute on chronic diastolic (congestive) heart failure; R65.11 Systemic inflammatory response syndrome (SIRS) of non-infectious origin with acute organ dysfunction; E11.22 Type 2 diabetes mellitus with diabetic chronic kidney disease; I48.0 Paroxysmal atrial fibrillation; E11.41 Type 2 diabetes mellitus with diabetic mononeuropathy; E11.65 Type 2 diabetes mellitus with hyperglycemia; I48.92 Unspecified atrial flutter; I25.810 Atherosclerosis of coronary artery bypass graft(s) without angina pectoris; E66.01 Morbid (severe) obesity due to excess calories; D64.9 Anemia, unspecified; G47.33 Obstructive sleep apnea (adult) (pediatric); N40.0 Benign prostatic hyperplasia without lower urinary tract symptoms; R07.9 Chest pain, unspecified; F32.9 Major depressive disorder, single episode, unspecified; E55.9 Vitamin D deficiency, unspecified; N18.3 Chronic kidney disease, stage 3 (moderate); F43.10 Post-traumatic stress disorder, unspecified; K21.9 Gastro-esophageal reflux disease without esophagitis; Z96.653 Presence of artificial knee joint, bilateral; E78.5 Hyperlipidemia, unspecified; M1A.9XX0 Chronic gout, unspecified, without tophus (tophi); J44.9 Chronic obstructive pulmonary disease, unspecified; E87.6 Hypokalemia; I25.2 Old myocardial infarction; Z68.35 Body mass index [BMI] 35.0-35.9, adult; Z98.49 Cataract extraction status, unspecified eye; Z95.1 Presence of aortocoronary bypass graft; Z82.49 Family history of ischemic heart disease and other diseases of the circulatory system; Z80.1 Family history of malignant neoplasm of trachea, bronchus and lung; Z88.8 Allergy status to other drugs, medicaments and biological substances; Z79.899 Other long term (current) drug therapy; Z79.82 Long term (current) use of aspirin

== ENCOUNTER → 2018-02-14 | Outpatient (CLI) | payer MEDICARE ==
[~2018-02-14] MED LIST changes: +DOXYCYCLINE100 M3 PO; +ELIQUIS5 M1 PO; +FUROSEMIDE20 M1 PO; +KLOR-CON M2020 ME1 PO; +METOPROLOL SUCC25 M2 PO; +MULTIVITAMINS1 EAC5 PO; +TYLENOL325 M3 PO; +VITAMIN D-32000 UNIT PO
== END | disposition home or self-care (01) ==
LOC: RAD 12:40
DX: J90 Pleural effusion, not elsewhere classified (principal); J45.909 Unspecified asthma, uncomplicated; R09.89 Other specified symptoms and signs involving the circulatory and respiratory systems; E11.9 Type 2 diabetes mellitus without complications

== ENCOUNTER → 2018-04-03 | Outpatient (CLI) | payer MEDICARE ==
[~2018-04-03] MED LIST changes: +BD ULTRA-FINE1 EAC1; +GUAIFENESIN600 MG PO; +HUMALOG100 UNIT/1 SQ; +IRON325 M1 PO; +LASIX20 MG PO; +LOW DOSE ASPIRI81 MG PO; +NITROSTAT0.4 MG SL; +REQUIP1 M1 PO; -ROPINIROLE HYD0.5 MG PO
[2018-04-03 11:53] LABS: BUN 22 mg/dl (7-24); CHLORIDE 104 mmol/L (98-107); CREATININE 1.36 mg/dL (0.70-1.30); POTASSIUM 3.7 mmol/L (3.5-5.1); SODIUM 140 mmol/L (136-145)
== END | disposition home or self-care (01) ==
LOC: LAB 11:16
DX: E87.6 Hypokalemia (principal)

== ENCOUNTER 2018-05-08 01:35 | Inpatient (IN) | payer MEDICARE ==
[~2018-05-08] VITALS: Ht 175.3 cm; Wt 106.4 kg
[2018-05-08] VITALS (7 sets, daily range): BP systolic 129–158; BP diastolic 65–88
--- NOTE | ~2018-05-08 | EKG ---
[place], [place] ELECTROCARDIOGRAM REPORT NAME: ISAAC FRANKLIN UNIT #: [id number] ROOM: 405 DOCTOR: FELIZ DRAFT REPORT BIRTHDATE: [birth year] [facility] Test Date: 2018-05-08 Test Time: 02:15:41 Pat Name: ISAAC FRANKLIN Department: ER Room: Gender: Grey Goods Tester: : 1945 Requested By: JEREMY LUDWIG Order Number: [id number] Reading MD: Kath Neville MD Measurements Intervals [place] Rate: 81 P: 36 MI: 197 QRS: -3 QRSD: 100 T: 78 QT: 374 QTc: 434 Interpretive Statements Sinus rhythm Baseline wander in lead(s) V1 Electronically Signed On 05-09-2018 9:37:59 PDT by Kath Neville MD CM:EKGRPT:ELECTROCARDIOGRAM REPORT 0215 [id number] JEREMY LEHMAN DRAFT REPORT JEREMY LUDWIG DO
[~2018-05-08 01:35] MED LIST changes: -BD ULTRA-FINE1 EAC1; -GUAIFENESIN600 MG PO; -HUMALOG100 UNIT/1 SQ; -IRON325 M1 PO; -LASIX20 MG PO; -LOW DOSE ASPIRI81 MG PO; -NITROSTAT0.4 MG SL
[2018-05-08 02:09] LABS: BASO % 0.5 % (0.0-1.0); EOS # 0.2 10*3/uL (0.0-0.4); EOS % 3.3 % (1.0-4.0); HEMATOCRIT 34.3 % (42.0-52.0); HEMOGLOBIN 10.8 g/dl (14.0-18.0); LYMPH # 1.6 10*3/uL (1.3-4.4); LYMPH % 25.4 % (27.0-41.0); MEAN CELL VOLUME 86.4 fl (80.0-94.0); MEAN CORPUSCULAR HGB 27.2 pg (27.0-31.0); MEAN CORPUSCULAR HGB CONC 31.5 g/dl (33.0-37.0); MEAN PLATELET VOLUME 11.7 fl (9.6-12.3); MONO # 0.5 10*3/uL (0.1-1.0); MONO % 8.1 % (3.0-9.0); NEUT # 3.9 10*3/uL (2.3-7.9); NEUT % 62.5 % (47.0-73.0); PLATELET COUNT AUTOMATED 126 10*3/uL (130-400); RED BLOOD COUNT 3.97 10*6/uL (4.50-5.90); RED CELL DISTRI WIDTH 19.9 % (0-14.5); WHITE BLOOD COUNT 6.2 10*3/uL (4.8-10.8)
[2018-05-08 02:18] LABS: BILIRUBIN NEGATIVE (NEGATIVE); BLOOD NEGATIVE (NEGATIVE); CLARITY CLEAR (CLEAR); COLOR YELLOW (YELLOW); GLUCOSE NEGATIVE (NEGATIVE); KETONE NEGATIVE (NEGATIVE); LEUKO ESTERASE NEGATIVE (NEGATIVE); NITRITE NEGATIVE (NEGATIVE); PH 6.5 (5.0-9.0); SPECIFIC GRAVITY <= 1.005 (1.005-1.030); UROBILINOGEN 0.2 E.U./dl (0.2-1.0)
[2018-05-08 02:21] LABS: ALBUMIN 3.5 gm/dl (3.1-4.5); ALKALINE PHOSPHATASE 127 U/L (45-117); BUN 24 mg/dl (7-24); CHLORIDE 110 mmol/L (98-107); CREATININE 1.23 mg/dL (0.70-1.30); POTASSIUM 4.6 mmol/L (3.5-5.1); SGOT/AST 28 IU/L (3-35); SGPT/ALT 16 U/L (12-78); SODIUM 145 mmol/L (136-145); TOTAL PROTEIN 6.4 gm/dL (6.4-8.2)
[2018-05-08 02:24] LABS: TROPONIN I < 0.015 ng/ml (<0.045)
[2018-05-08 02:32] LABS: RBC 0-2 rbc/hpf (0-2)
[2018-05-08] MEDS ORDERED: IRON325 M1 PO (05:40)
[2018-05-08] MEDS ORDERED: FLONASE ALLERG9.9 ML NAS (05:41)
[2018-05-08] MEDS ORDERED: LASIX20 MG PO (05:42)
[2018-05-08] MEDS ORDERED: LOW DOSE ASPIRI81 MG PO (05:43)
[2018-05-08] MEDS ORDERED: HUMALOG100 UNIT/1 SQ (05:47)
[2018-05-08] MEDS ORDERED: GUAIFENESIN600 MG PO (05:48)
[2018-05-08] MEDS ORDERED: NITROSTAT0.4 MG SL (05:49)
[2018-05-08] MEDS ORDERED: BD ULTRA-FINE1 EAC1 (05:53)
[2018-05-09] VITALS: BP 165/85
[2018-05-09 06:51] LABS: BUN 19 mg/dl (7-24); CHLORIDE 108 mmol/L (98-107); CREATININE 1.06 mg/dL (0.70-1.30); PHOSPHOROUS 3.6 mg/dL (2.5-4.9); POTASSIUM 4.2 mmol/L (3.5-5.1); SODIUM 143 mmol/L (136-145)
[2018-05-09 08:00] VITALS: BP 170/76
[2018-05-09 10:50] VITALS: BP 176/90
[2018-05-09 12:00] VITALS: BP 142/70
== END 2018-05-09 15:16 | disposition home or self-care (01) | DRG 641 ==
LOC: ED 01:35 → EDHOLD 04:43 → 4E 04:50
PROVIDERS: Emergency Medicine; Student in an Organized Health Care Education/Training Program
DX: E86.0 Dehydration (principal); E11.22 Type 2 diabetes mellitus with diabetic chronic kidney disease; E11.42 Type 2 diabetes mellitus with diabetic polyneuropathy; I48.0 Paroxysmal atrial fibrillation; D64.9 Anemia, unspecified; E11.65 Type 2 diabetes mellitus with hyperglycemia; I13.0 Hypertensive heart and chronic kidney disease with heart failure and stage 1 through stage 4 chronic kidney disease, or unspecified chronic kidney disease; I50.30 Unspecified diastolic (congestive) heart failure; G25.81 Restless legs syndrome; I95.1 Orthostatic hypotension; E55.9 Vitamin D deficiency, unspecified; E66.9 Obesity, unspecified; E78.5 Hyperlipidemia, unspecified; F32.9 Major depressive disorder, single episode, unspecified; F43.10 Post-traumatic stress disorder, unspecified; G47.33 Obstructive sleep apnea (adult) (pediatric); N40.0 Benign prostatic hyperplasia without lower urinary tract symptoms; I10 Essential (primary) hypertension; M10.9 Gout, unspecified; I25.10 Atherosclerotic heart disease of native coronary artery without angina pectoris; N18.3 Chronic kidney disease, stage 3 (moderate); K21.9 Gastro-esophageal reflux disease without esophagitis; J44.9 Chronic obstructive pulmonary disease, unspecified; Z96.653 Presence of artificial knee joint, bilateral; Z98.49 Cataract extraction status, unspecified eye; Z82.49 Family history of ischemic heart disease and other diseases of the circulatory system; Z95.1 Presence of aortocoronary bypass graft; I25.2 Old myocardial infarction; Z80.1 Family history of malignant neoplasm of trachea, bronchus and lung; Z88.8 Allergy status to other drugs, medicaments and biological substances; Z79.899 Other long term (current) drug therapy; Z79.82 Long term (current) use of aspirin; Z68.34 Body mass index [BMI] 34.0-34.9, adult

== ENCOUNTER 2018-07-06 17:53 | Inpatient (IN) | payer MEDICARE ==
[~2018-07-06] VITALS: Ht 175.2 cm; Wt 108.0 kg
[~2018-07-06 17:53] MED LIST changes: +BD ULTRA-FINE1 EAC1; +GUAIFENESIN600 MG PO; +HUMALOG100 UNIT/1 SQ; +IRON325 M1 PO; +LASIX20 MG PO; +LOW DOSE ASPIRI81 MG PO; +NITROSTAT0.4 MG SL
[2018-07-06 17:54] VITALS: BP 145/76
[2018-07-06 19:09] LABS: HEMATOCRIT 37.3 % (42.0-52.0); MEAN CELL VOLUME 90.8 fl (80.0-94.0); MEAN CORPUSCULAR HGB 29.2 pg (27.0-31.0); MEAN CORPUSCULAR HGB CONC 32.2 g/dl (33.0-37.0); MEAN PLATELET VOLUME 11.2 fl (9.6-12.3); PLATELET COUNT AUTOMATED 103 10*3/uL (130-400); RED BLOOD COUNT 4.11 10*6/uL (4.50-5.90); RED CELL DISTRI WIDTH 13.5 % (0-14.5); WHITE BLOOD COUNT 12.6 10*3/uL (4.8-10.8)
[2018-07-06 19:20] LABS: BILIRUBIN NEGATIVE (NEGATIVE); BLOOD 2+ (NEGATIVE); CLARITY CLOUDY (CLEAR); COLOR YELLOW (YELLOW); GLUCOSE NEGATIVE (NEGATIVE); KETONE TRACE (NEGATIVE); LEUKO ESTERASE 2+ (NEGATIVE); NITRITE POSITIVE (NEGATIVE)
[2018-07-06 19:24] LABS: BACTERIA 4+; MUCOUS TRACE; RBC TNTC rbc/hpf (0-2); WBC TNTC wbc/hpf (0-5)
[2018-07-06 19:25] LABS: ALKALINE PHOSPHATASE 91 U/L (45-117); BUN 17 mg/dl (7-24); CHLORIDE 104 mmol/L (98-107); CREATININE 1.33 mg/dL (0.70-1.30); LIPASE 144 U/L (73-393); POTASSIUM 4.2 mmol/L (3.5-5.1); SGOT/AST 17 IU/L (3-35); SGPT/ALT 19 U/L (12-78); SODIUM 140 mmol/L (136-145); TOTAL PROTEIN 6.8 gm/dL (6.4-8.2)
[2018-07-06 19:32] LABS: PLATELET SUFFICIENCY LOW (NORMAL); TOTAL CELLS COUNTED 100 #CELLS
[2018-07-06 20:16] VITALS: BP 112/60
[2018-07-06 21:42] VITALS: BP 142/71
[2018-07-06 22:40] VITALS: BP 127/65
[2018-07-06] MEDS ORDERED: VITAMIN D31000 UNI1 PO (22:58)
[2018-07-07 06:27] LABS: BASO % 0.2 % (0.0-1.0); EOS # 0.1 10*3/uL (0.0-0.4); EOS % 0.9 % (1.0-4.0); HEMATOCRIT 33.2 % (42.0-52.0); HEMOGLOBIN 10.6 g/dl (14.0-18.0); LYMPH % 9.9 % (27.0-41.0); MEAN CELL VOLUME 92.2 fl (80.0-94.0); MEAN CORPUSCULAR HGB 29.4 pg (27.0-31.0); MEAN CORPUSCULAR HGB CONC 31.9 g/dl (33.0-37.0); MEAN PLATELET VOLUME 11.3 fl (9.6-12.3); MONO # 0.8 10*3/uL (0.1-1.0); MONO % 7.8 % (3.0-9.0); NEUT # 7.8 10*3/uL (2.3-7.9); NEUT % 79.7 % (47.0-73.0); PLATELET COUNT AUTOMATED 94 10*3/uL (130-400); RED CELL DISTRI WIDTH 13.4 % (0-14.5); WHITE BLOOD COUNT 9.7 10*3/uL (4.8-10.8)
[2018-07-07 06:34] LABS: ACT PARTIAL THROMBO TIME 34.3 SECONDS (20.8-31.5); INTERNATIONAL NORM RATIO 1.1 (2.0-3.5)
[2018-07-07 07:04] LABS: ALBUMIN 2.6 gm/dl (3.1-4.5); BUN 17 mg/dl (7-24); CHLORIDE 107 mmol/L (98-107); CHOLESTEROL 56 mg/dL (<200); CREATININE 1.19 mg/dL (0.70-1.30); PHOSPHOROUS 2.3 mg/dL (2.5-4.9); POTASSIUM 3.9 mmol/L (3.5-5.1); SGOT/AST 15 IU/L (3-35); SGPT/ALT 15 U/L (12-78); SODIUM 140 mmol/L (136-145); TRIGLYCERIDES 86 mg/dl (<150); VLDL CHOLESTEROL 17 mg/dL (6-40)
[2018-07-07 07:11] LABS: ALKALINE PHOSPHATASE 81 U/L (45-117); FREE T4 1.14 ng/dl (0.76-1.46); HDL CHOLESTEROL 19 mg/dl (40-60); LDL CHOLESTEROL 20 mg/dL (9-159)
[2018-07-07 12:00] VITALS: BP 136/77
[2018-07-07 16:00] VITALS: BP 133/69
[2018-07-07 20:00] VITALS: BP 119/65
[2018-07-08 01:04] VITALS: BP 136/68
[2018-07-08 06:25] LABS: BASO % 0.2 % (0.0-1.0); EOS # 0.2 10*3/uL (0.0-0.4); EOS % 2.5 % (1.0-4.0); HEMATOCRIT 33.9 % (42.0-52.0); HEMOGLOBIN 10.9 g/dl (14.0-18.0); LYMPH # 0.8 10*3/uL (1.3-4.4); LYMPH % 13.7 % (27.0-41.0); MEAN CELL VOLUME 90.6 fl (80.0-94.0); MEAN CORPUSCULAR HGB 29.1 pg (27.0-31.0); MEAN CORPUSCULAR HGB CONC 32.2 g/dl (33.0-37.0); MEAN PLATELET VOLUME 11.3 fl (9.6-12.3); MONO # 0.5 10*3/uL (0.1-1.0); MONO % 7.7 % (3.0-9.0); NEUT # 4.6 10*3/uL (2.3-7.9); NEUT % 75.6 % (47.0-73.0); PLATELET COUNT AUTOMATED 111 10*3/uL (130-400); RED BLOOD COUNT 3.74 10*6/uL (4.50-5.90); RED CELL DISTRI WIDTH 13.5 % (0-14.5); WHITE BLOOD COUNT 6.1 10*3/uL (4.8-10.8)
[2018-07-08 06:50] LABS: BUN 13 mg/dl (7-24); CHLORIDE 107 mmol/L (98-107); CREATININE 1.15 mg/dL (0.70-1.30); POTASSIUM 3.5 mmol/L (3.5-5.1); SODIUM 141 mmol/L (136-145)
[2018-07-08 08:00] VITALS: BP 143/69
[2018-07-08 12:00] VITALS: BP 143/69
[2018-07-08 16:00] VITALS: BP 114/67
[2018-07-08 20:00] VITALS: BP 159/74
[2018-07-09] VITALS: BP 148/73
[2018-07-09 06:24] LABS: BASO % 0.6 % (0.0-1.0); EOS # 0.2 10*3/uL (0.0-0.4); EOS % 3.4 % (1.0-4.0); HEMATOCRIT 33.8 % (42.0-52.0); LYMPH # 1.1 10*3/uL (1.3-4.4); LYMPH % 22.2 % (27.0-41.0); MEAN CELL VOLUME 88.7 fl (80.0-94.0); MEAN CORPUSCULAR HGB 28.9 pg (27.0-31.0); MEAN CORPUSCULAR HGB CONC 32.5 g/dl (33.0-37.0); MEAN PLATELET VOLUME 11.1 fl (9.6-12.3); MONO # 0.5 10*3/uL (0.1-1.0); MONO % 10.4 % (3.0-9.0); NEUT # 3.2 10*3/uL (2.3-7.9); PLATELET COUNT AUTOMATED 123 10*3/uL (130-400); RED BLOOD COUNT 3.81 10*6/uL (4.50-5.90); RED CELL DISTRI WIDTH 13.2 % (0-14.5)
[2018-07-09 06:53] LABS: BUN 12 mg/dl (7-24); CHLORIDE 108 mmol/L (98-107); POTASSIUM 3.6 mmol/L (3.5-5.1); SODIUM 142 mmol/L (136-145)
[2018-07-09 08:00] VITALS: BP 154/74
[2018-07-09] MEDS ORDERED: CIPRO500 MG PO (10:47)
[2018-07-09] MEDS ORDERED: LASIX20 MG PO (10:47)
[2018-07-09 12:00] VITALS: BP 165/80
== END 2018-07-09 13:39 | disposition home or self-care (01) | DRG 871 ==
LOC: ED 17:53 → EDHOLD 21:25 → 5E 21:25
PROVIDERS: Emergency Medicine; Internal Medicine
DX: A41.9 Sepsis, unspecified organism (principal); N17.0 Acute kidney failure with tubular necrosis; E43 Unspecified severe protein-calorie malnutrition; I25.810 Atherosclerosis of coronary artery bypass graft(s) without angina pectoris; I48.92 Unspecified atrial flutter; K52.9 Noninfective gastroenteritis and colitis, unspecified; R65.20 Severe sepsis without septic shock; E86.0 Dehydration; D69.6 Thrombocytopenia, unspecified; D64.9 Anemia, unspecified; E80.6 Other disorders of bilirubin metabolism; G47.33 Obstructive sleep apnea (adult) (pediatric); F43.10 Post-traumatic stress disorder, unspecified; N40.0 Benign prostatic hyperplasia without lower urinary tract symptoms; E11.42 Type 2 diabetes mellitus with diabetic polyneuropathy; F32.9 Major depressive disorder, single episode, unspecified; G25.81 Restless legs syndrome; M1A.09X0 Idiopathic chronic gout, multiple sites, without tophus (tophi); J45.20 Mild intermittent asthma, uncomplicated; K21.9 Gastro-esophageal reflux disease without esophagitis; J44.9 Chronic obstructive pulmonary disease, unspecified; E78.5 Hyperlipidemia, unspecified; I48.0 Paroxysmal atrial fibrillation; E83.39 Other disorders of phosphorus metabolism; N18.3 Chronic kidney disease, stage 3 (moderate); E11.22 Type 2 diabetes mellitus with diabetic chronic kidney disease; I12.9 Hypertensive chronic kidney disease with stage 1 through stage 4 chronic kidney disease, or unspecified chronic kidney disease; N30.91 Cystitis, unspecified with hematuria; R16.1 Splenomegaly, not elsewhere classified; B96.1 Klebsiella pneumoniae [K. pneumoniae] as the cause of diseases classified elsewhere; Z96.653 Presence of artificial knee joint, bilateral; Z79.4 Long term (current) use of insulin; I25.2 Old myocardial infarction; Z98.49 Cataract extraction status, unspecified eye; Z88.8 Allergy status to other drugs, medicaments and biological substances; Z79.899 Other long term (current) drug therapy; Z79.82 Long term (current) use of aspirin; Z82.49 Family history of ischemic heart disease and other diseases of the circulatory system; Z83.3 Family history of diabetes mellitus; Z80.1 Family history of malignant neoplasm of trachea, bronchus and lung; Z68.34 Body mass index [BMI] 34.0-34.9, adult

== ENCOUNTER 2018-08-16 12:41 | Emergency (ER) | payer MEDICARE ==
[~2018-08-16] VITALS: Ht 175.2 cm; Wt 106.6 kg
[~2018-08-16 12:41] MED LIST changes: +CIPRO500 MG PO
[2018-08-16 12:44] VITALS: BP 158/86
[2018-08-16 13:09] LABS: BASO % 0.7 % (0.0-1.0); EOS # 0.2 10*3/uL (0.0-0.4); EOS % 3.3 % (1.0-4.0); HEMATOCRIT 37.5 % (42.0-52.0); HEMOGLOBIN 12.1 g/dl (14.0-18.0); LYMPH # 1.5 10*3/uL (1.3-4.4); LYMPH % 26.5 % (27.0-41.0); MEAN CELL VOLUME 92.6 fl (80.0-94.0); MEAN CORPUSCULAR HGB 29.9 pg (27.0-31.0); MEAN CORPUSCULAR HGB CONC 32.3 g/dl (33.0-37.0); MONO # 0.4 10*3/uL (0.1-1.0); MONO % 7.1 % (3.0-9.0); NEUT # 3.4 10*3/uL (2.3-7.9); NEUT % 61.9 % (47.0-73.0); PLATELET COUNT AUTOMATED 126 10*3/uL (130-400); RED BLOOD COUNT 4.05 10*6/uL (4.50-5.90); RED CELL DISTRI WIDTH 13.3 % (0-14.5); WHITE BLOOD COUNT 5.5 10*3/uL (4.8-10.8)
[2018-08-16 13:18] LABS: ACT PARTIAL THROMBO TIME 29.3 SECONDS (20.8-31.5)
[2018-08-16 13:25] LABS: ALBUMIN 3.2 gm/dl (3.1-4.5); ALKALINE PHOSPHATASE 134 U/L (45-117); BUN 12 mg/dl (7-24); CHLORIDE 106 mmol/L (98-107); CREATININE 1.26 mg/dL (0.70-1.30); POTASSIUM 4.8 mmol/L (3.5-5.1); SGOT/AST 13 IU/L (3-35); SGPT/ALT 20 U/L (12-78); SODIUM 142 mmol/L (136-145); TOTAL PROTEIN 6.7 gm/dL (6.4-8.2)
[2018-08-16] MEDS ORDERED: LASIX40 MG PO (13:56)
== END 2018-08-16 13:48 | disposition home or self-care (01) ==
LOC: ED 12:41
PROVIDERS: Emergency Medicine
DX: M79.604 Pain in right leg (principal); M79.89 Other specified soft tissue disorders; I12.9 Hypertensive chronic kidney disease with stage 1 through stage 4 chronic kidney disease, or unspecified chronic kidney disease; N18.3 Chronic kidney disease, stage 3 (moderate); E11.22 Type 2 diabetes mellitus with diabetic chronic kidney disease; J44.9 Chronic obstructive pulmonary disease, unspecified; E11.40 Type 2 diabetes mellitus with diabetic neuropathy, unspecified; K21.9 Gastro-esophageal reflux disease without esophagitis; E78.5 Hyperlipidemia, unspecified; I25.2 Old myocardial infarction; I25.10 Atherosclerotic heart disease of native coronary artery without angina pectoris; Z77.22 Contact with and (suspected) exposure to environmental tobacco smoke (acute) (chronic); Z88.8 Allergy status to other drugs, medicaments and biological substances; Z79.2 Long term (current) use of antibiotics; Z79.899 Other long term (current) drug therapy; Z79.4 Long term (current) use of insulin; Z79.82 Long term (current) use of aspirin; Z95.1 Presence of aortocoronary bypass graft

== ENCOUNTER → 2018-12-28 | Outpatient (CLI) | payer MEDICARE ==
[~2018-12-28] MED LIST changes: +COREG12.5 M1 PO; +CYCLOBENZAPRINE10 MG PO; +LASIX40 MG PO; +LOSARTAN POTASS25 M1 PO; -REQUIP1 M1 PO; +ROPINIROLE HYDRO2 M1 PO
[2018-12-28 15:46] LABS: CREATININE 1.58 mg/dL (0.70-1.30); POTASSIUM 3.7 mmol/L (3.5-5.1)
== END | disposition home or self-care (01) ==
LOC: LAB 14:54
DX: I10 Essential (primary) hypertension (principal)

== ENCOUNTER 2019-05-23 18:28 | Emergency (ER) | payer MEDICARE ==
[~2019-05-23] VITALS: Ht 172.7 cm; Wt 115.2 kg
[2019-05-23 18:29] VITALS: BP 122/70
== END 2019-05-23 20:31 | disposition home or self-care (01) ==
LOC: ED 18:28
DX: S22.41XA Multiple fractures of ribs, right side, initial encounter for closed fracture (principal); S40.012A Contusion of left shoulder, initial encounter; Z88.8 Allergy status to other drugs, medicaments and biological substances; Z79.899 Other long term (current) drug therapy; Z79.82 Long term (current) use of aspirin; W18.40XA Slipping, tripping and stumbling without falling, unspecified, initial encounter; Y93.89 Activity, other specified; Y92.814 Boat as the place of occurrence of the external cause; Y99.8 Other external cause status

== ENCOUNTER 2019-07-07 20:59 | Emergency (ER) | payer MEDICARE ==
[~2019-07-07] VITALS: Ht 172.7 cm; Wt 116.6 kg
[2019-07-07 21:02] VITALS: BP 146/76
[2019-07-07 21:57] LABS: BASO % 0.4 % (0.0-1.0); EOS # 0.1 10*3/uL (0.0-0.4); EOS % 1.3 % (1.0-4.0); HEMATOCRIT 38.5 % (42.0-52.0); HEMOGLOBIN 12.8 g/dl (14.0-18.0); LYMPH # 1.8 10*3/uL (1.3-4.4); LYMPH % 22.7 % (27.0-41.0); MEAN CELL VOLUME 93.7 fl (80.0-94.0); MEAN CORPUSCULAR HGB 31.1 pg (27.0-31.0); MEAN CORPUSCULAR HGB CONC 33.2 g/dl (33.0-37.0); MEAN PLATELET VOLUME 11.1 fl (9.6-12.3); MONO # 0.6 10*3/uL (0.1-1.0); MONO % 7.5 % (3.0-9.0); NEUT # 5.3 10*3/uL (2.3-7.9); NEUT % 67.8 % (47.0-73.0); PLATELET COUNT AUTOMATED 135 10*3/uL (130-400); RED BLOOD COUNT 4.11 10*6/uL (4.50-5.90); RED CELL DISTRI WIDTH 12.7 % (0-14.5); WHITE BLOOD COUNT 7.8 10*3/uL (4.8-10.8)
[2019-07-07 22:11] LABS: ALBUMIN 3.6 gm/dl (3.1-4.5); CREATININE 1.59 mg/dL (0.70-1.30); TOTAL PROTEIN 7.1 gm/dL (6.4-8.2)
[2019-07-07] MEDS ORDERED: DOXYCYCLINE100 M3 PO (23:14)
[2019-07-07] MEDS ORDERED: Motrin,Rufen800 MG PO (23:14)
[2019-07-07] MEDS ORDERED: NORCO 5-325 TA1 EACH PO (23:14)
== END 2019-07-07 23:55 | disposition home or self-care (01) ==
LOC: ED 20:59
PROVIDERS: Nurse Practitioner Family
DX: M70.21 Olecranon bursitis, right elbow (principal); Z79.899 Other long term (current) drug therapy; Z79.82 Long term (current) use of aspirin; Z88.8 Allergy status to other drugs, medicaments and biological substances; Y93.89 Activity, other specified

== ENCOUNTER → 2019-07-16 | Outpatient (CLI) | payer MEDICARE ==
[~2019-07-16] MED LIST changes: +Motrin,Rufen800 MG PO; +NORCO 5-325 TA1 EACH PO
[2019-07-16 12:30] LABS: ALBUMIN 3.5 gm/dl (3.1-4.5); CREATININE 2.24 mg/dL (0.70-1.30); POTASSIUM 3.4 mmol/L (3.5-5.1); TOTAL PROTEIN 7.2 gm/dL (6.4-8.2)
== END | disposition home or self-care (01) ==
LOC: LAB 11:34
PROVIDERS: Orthopaedic Surgery
DX: Z79.1 Long term (current) use of non-steroidal anti-inflammatories (NSAID) (principal)

== ENCOUNTER 2019-08-19 00:40 | Emergency (ER) | payer MEDICARE ==
[~2019-08-19] VITALS: Ht 172.7 cm; Wt 115.7 kg
[2019-08-19 00:41] VITALS: BP 150/111
[2019-08-19] MEDS ORDERED: REQUIP3 M1 PO (00:55)
== END 2019-08-19 01:40 | disposition home or self-care (01) ==
LOC: ED 00:40
DX: G89.29 Other chronic pain (principal); M79.604 Pain in right leg; M79.605 Pain in left leg; I25.10 Atherosclerotic heart disease of native coronary artery without angina pectoris; M10.9 Gout, unspecified; E78.00 Pure hypercholesterolemia, unspecified; E11.9 Type 2 diabetes mellitus without complications; I50.9 Heart failure, unspecified; I11.0 Hypertensive heart disease with heart failure; Z76.0 Encounter for issue of repeat prescription; Z79.899 Other long term (current) drug therapy; Z79.82 Long term (current) use of aspirin; Z88.8 Allergy status to other drugs, medicaments and biological substances; Z86.718 Personal history of other venous thrombosis and embolism

== ENCOUNTER → 2019-10-31 | Outpatient (CLI) | payer MEDICARE ==
[~2019-10-31] MED LIST changes: +REQUIP3 M1 PO
[2019-10-31 14:17] LABS: CREATININE 1.61 mg/dL (0.70-1.30)
== END | disposition home or self-care (01) ==
LOC: LAB 12:45
PROVIDERS: Urology
DX: R31.0 Gross hematuria (principal)

== ENCOUNTER → 2019-11-02 | Outpatient (CLI) | payer MEDICARE ==
[2019-11-02 14:28] LABS: BILIRUBIN NEGATIVE (NEGATIVE); BLOOD NEGATIVE (NEGATIVE); CLARITY CLEAR (CLEAR); COLOR YELLOW (YELLOW); GLUCOSE NEGATIVE (NEGATIVE); KETONE NEGATIVE (NEGATIVE); LEUKO ESTERASE NEGATIVE (NEGATIVE); NITRITE NEGATIVE (NEGATIVE); SPECIFIC GRAVITY 1.015 (1.005-1.030); UROBILINOGEN 0.2 E.U./dl (0.2-1.0)
== END | disposition home or self-care (01) ==
LOC: LAB 13:26
PROVIDERS: Urology
DX: R31.29 Other microscopic hematuria (principal)

== ENCOUNTER → 2019-11-05 | Outpatient (CLI) | payer MEDICARE | END | disposition home or self-care (01) | LOC: CT 00:08 | DX: R31.0 Gross hematuria (principal) ==

== ENCOUNTER → 2020-01-17 | Outpatient (CLI) | payer MEDICARE ==
[2020-01-17 12:42] LABS: BASO % 0.5 % (0.0-1.0); EOS # 0.1 10*3/uL (0.0-0.4); HEMATOCRIT 40.7 % (42.0-52.0); HEMOGLOBIN 13.2 g/dl (14.0-18.0); LYMPH # 1.5 10*3/uL (1.3-4.4); LYMPH % 23.7 % (27.0-41.0); MEAN CELL VOLUME 92.9 fl (80.0-94.0); MEAN CORPUSCULAR HGB 30.1 pg (27.0-31.0); MEAN CORPUSCULAR HGB CONC 32.4 g/dl (33.0-37.0); MEAN PLATELET VOLUME 11.3 fl (9.6-12.3); MONO # 0.6 10*3/uL (0.1-1.0); MONO % 8.9 % (3.0-9.0); NEUT # 4.2 10*3/uL (2.3-7.9); NEUT % 64.4 % (47.0-73.0); PLATELET COUNT AUTOMATED 142 10*3/uL (130-400); RED BLOOD COUNT 4.38 10*6/uL (4.50-5.90); RED CELL DISTRI WIDTH 13.2 % (0-14.5); WHITE BLOOD COUNT 6.5 10*3/uL (4.8-10.8)
== END | disposition home or self-care (01) ==
LOC: LAB 12:04
PROVIDERS: Orthopaedic Surgery
DX: E78.00 Pure hypercholesterolemia, unspecified (principal); I10 Essential (primary) hypertension; M25.562 Pain in left knee

== ENCOUNTER 2020-04-14 21:43 | Observation (INO) | payer MEDICARE ==
[~2020-04-14] VITALS: Ht 175.2 cm; Wt 122.2 kg
[2020-04-14 21:53] VITALS: BP 143/78
--- NOTE | 2020-04-14 22:14 | NUR ---
Pt states he also has loop recorder in place at this time.
[2020-04-14 22:15] VITALS: BP 134/82
[2020-04-14 22:15] LABS: BASO % 0.5 % (0.0-1.0); EOS # 0.2 10*3/uL (0.0-0.4); EOS % 2.3 % (1.0-4.0); HEMATOCRIT 36.3 % (42.0-52.0); LYMPH # 1.5 10*3/uL (1.3-4.4); LYMPH % 23.9 % (27.0-41.0); MEAN CORPUSCULAR HGB 31.9 pg (27.0-31.0); MEAN CORPUSCULAR HGB CONC 33.9 g/dl (33.0-37.0); MEAN PLATELET VOLUME 10.7 fl (9.6-12.3); MONO # 0.4 10*3/uL (0.1-1.0); MONO % 6.4 % (3.0-9.0); NEUT # 4.3 10*3/uL (2.3-7.9); NEUT % 66.6 % (47.0-73.0); PLATELET COUNT AUTOMATED 126 10*3/uL (130-400); RED BLOOD COUNT 3.86 10*6/uL (4.50-5.90); RED CELL DISTRI WIDTH 12.6 % (0-14.5); WHITE BLOOD COUNT 6.4 10*3/uL (4.8-10.8)
[2020-04-14 22:24] LABS: ACT PARTIAL THROMBO TIME 26.9 SECONDS (20.0-32.1); INTERNATIONAL NORM RATIO 0.9 (2.0-3.5)
[2020-04-14 22:27] VITALS: BP 121/82
[2020-04-14 22:30] LABS: ALBUMIN 3.3 gm/dl (3.1-4.5); ALKALINE PHOSPHATASE 123 U/L (45-117); BUN 20 mg/dl (7-24); CHLORIDE 106 mmol/L (98-107); POTASSIUM 3.7 mmol/L (3.5-5.1); SGOT/AST 21 IU/L (3-35); SGPT/ALT 37 U/L (12-78); SODIUM 140 mmol/L (136-145); TOTAL PROTEIN 6.7 gm/dL (6.4-8.2)
[2020-04-14 22:33] LABS: TROPONIN I < 0.015 ng/ml (<0.045)
--- NOTE | 2020-04-14 22:41 | NUR ---
In to see pt at this time.Pt states he is ok and appears comfortable at bedside at this time.
[2020-04-14 22:45] VITALS: BP 124/85
[2020-04-15 00:06] VITALS: BP 138/74
--- NOTE | 2020-04-15 00:08 | NUR ---
Pt transferred to floor on monitor with all belongings
[2020-04-15 00:12] VITALS: BP 153/79
--- NOTE | 2020-04-15 00:12 | NUR ---
A 74, admitted to 4E, under the services of MARICRUZ Moss DO with a diagnosis of CHEST PAIN OBSERVATION. Chief complaint is SHOULDER PAIN. Patient arrived via bed from ER. Monitor applied. Initial assessment completed. Vital signs taken and recorded. MARICRUZ MOSS DO notified of admission to the unit. Orders received. See assessment for past medical history, medications and allergies. Patient oriented to unit. Clothing/patient valuable form completed. GLADYS GARCIA
--- NOTE | 2020-04-15 00:19 | NUR ---
STATED NOT TO CALL D/T PATIENT BEING OBSERVATION
[2020-04-15] MEDS ORDERED: ATORVASTATIN CA40 M1 PO (00:36)
[2020-04-15] MEDS ORDERED: DICLOFENAC SOD75 MG PO (00:43)
[2020-04-15] MEDS ORDERED: NEURONTIN300 MG PO (00:44)
[2020-04-15] MEDS ORDERED: FERROUS SULFAT325 MG PO (00:44)
[2020-04-15] MEDS ORDERED: POTASSIUM CHLO20 ME3 PO (00:45)
[2020-04-15] MEDS ORDERED: TROSPIUM CHLORI20 M1 PO (00:45)
[2020-04-15] MEDS ORDERED: SOLIFENACIN SUC10 MG PO (00:45)
[2020-04-15] MEDS ORDERED: DICLOFENAC SOD2.5 M2 OP (00:46)
--- NOTE | 2020-04-15 01:20 | NUR ---
INFORMED THAT HOME MED ARE VERIFIED, PATIENT IS REQUESTING NIGHTTIME REQUIP AND FLEXERIL. STATED OK.
--- NOTE | 2020-04-15 01:48 | NUR ---
PATIENT MEDICATED WITH NORCO FOR BACK/ LEFT SHOULDER PAIN 06/02. WILL MONITOR
--- NOTE | 2020-04-15 02:34 | NUR ---
TROPONIN ORDERSET FROM ER WAS NOT PROFILING APPROPIATELY AND THE NWENT IN LATE FOR LAB. NEW ORDER SET ORDER AT THIS TIME.
--- NOTE | 2020-04-15 02:48 | NUR ---
NORCO APPEARS EFFECTIVE, RESTING QUIETLY IN RECLINER, EYES CLOSED. NO DISTRESS NOED. CALL LIGHT WITHIN REACH
--- NOTE | 2020-04-15 05:45 | NUR ---
PATIENT MEDICATED WITH MORPHINE FOR C/O 10/10 LEFT SHOULDER PAIN. WILL MONITOR
[2020-04-15 06:11] LABS: ALBUMIN 3.4 gm/dl (3.1-4.5); POTASSIUM 3.8 mmol/L (3.5-5.1); TOTAL PROTEIN 7.2 gm/dL (6.4-8.2)
[2020-04-15 06:16] LABS: BASO % 0.5 % (0.0-1.0); EOS # 0.2 10*3/uL (0.0-0.4); EOS % 2.6 % (1.0-4.0); HEMATOCRIT 38.6 % (42.0-52.0); LYMPH # 1.7 10*3/uL (1.3-4.4); LYMPH % 28.4 % (27.0-41.0); MEAN CELL VOLUME 94.4 fl (80.0-94.0); MEAN CORPUSCULAR HGB 31.1 pg (27.0-31.0); MEAN CORPUSCULAR HGB CONC 32.9 g/dl (33.0-37.0); MEAN PLATELET VOLUME 10.8 fl (9.6-12.3); MONO # 0.5 10*3/uL (0.1-1.0); MONO % 7.5 % (3.0-9.0); NEUT # 3.7 10*3/uL (2.3-7.9); NEUT % 60.5 % (47.0-73.0); PLATELET COUNT AUTOMATED 132 10*3/uL (130-400); RED BLOOD COUNT 4.09 10*6/uL (4.50-5.90); RED CELL DISTRI WIDTH 12.3 % (0-14.5); WHITE BLOOD COUNT 6.1 10*3/uL (4.8-10.8)
[2020-04-15 06:18] LABS: CREATININE 1.63 mg/dL (0.70-1.30); THYROID STIM HORMONE (HS) 3.46 uIU/ml (0.358-4.75)
[2020-04-15 06:25] LABS: INTERNATIONAL NORM RATIO 0.9 (2.0-3.5)
[2020-04-15 08:00] VITALS: BP 150/82
--- NOTE | 2020-04-15 09:00 | NUR ---
Tank Builder Helper in to talk to patient. Patient states lives at home with . There are 2 steps in the home. Physician: alfie carpio Pharmacy: [facility] health services: none Patient's level of ADLs: INDEPENDENT Patient has working utilities: all working DME: none Follow-up physician's appointment after d/c: will be made by hospitalist nurse director upon discharge Does patient want to access PORTAL?: no Discharge plan discussed with patient, he states he lives at home with his , he states he gets around fine, is independent in adls and ambulation, he stated he would return home when discharged, denies any home needs, case management will follow. TOMY BURGESS
--- NOTE | 2020-04-15 10:12 | NUR ---
MEDICATED WITH PRN TORODOL PER ORDER.
--- NOTE | 2020-04-15 11:00 | NUR ---
TORODOL HELPED, NOW PATIENT STATED HE WANTS TO GET OUT OF HERE.
[2020-04-15 12:00] VITALS: BP 134/84
--- NOTE | 2020-04-15 15:30 | NUR ---
PATIENT DISCHARGED TO HOME.
== END 2020-04-15 15:30 | disposition home or self-care (01) ==
LOC: ED 21:43 → EDHOLD 23:30 → 4E 23:58
PROVIDERS: Emergency Medicine; Student in an Organized Health Care Education/Training Program; ADMIT Internal Medicine
DX: R07.89 Other chest pain (principal); I44.0 Atrioventricular block, first degree; R65.10 Systemic inflammatory response syndrome (SIRS) of non-infectious origin without acute organ dysfunction; R06.82 Tachypnea, not elsewhere classified; D72.829 Elevated white blood cell count, unspecified; E83.41 Hypermagnesemia; D64.9 Anemia, unspecified; D69.6 Thrombocytopenia, unspecified; G47.33 Obstructive sleep apnea (adult) (pediatric); N40.0 Benign prostatic hyperplasia without lower urinary tract symptoms; E11.22 Type 2 diabetes mellitus with diabetic chronic kidney disease; E11.40 Type 2 diabetes mellitus with diabetic neuropathy, unspecified; I12.9 Hypertensive chronic kidney disease with stage 1 through stage 4 chronic kidney disease, or unspecified chronic kidney disease; N18.3 Chronic kidney disease, stage 3 (moderate); E11.65 Type 2 diabetes mellitus with hyperglycemia; K21.9 Gastro-esophageal reflux disease without esophagitis; E78.5 Hyperlipidemia, unspecified; I25.10 Atherosclerotic heart disease of native coronary artery without angina pectoris; I48.0 Paroxysmal atrial fibrillation; E44.1 Mild protein-calorie malnutrition; E66.01 Morbid (severe) obesity due to excess calories; M79.606 Pain in leg, unspecified; G89.29 Other chronic pain; D68.69 Other thrombophilia

== ENCOUNTER 2020-07-17 20:15 | Observation (INO) | payer MEDICARE ==
[~2020-07-17] VITALS: Ht 172.7 cm; Wt 115.8 kg
[~2020-07-17 20:15] MED LIST changes: +ATORVASTATIN CA40 M1 PO; +DICLOFENAC SOD2.5 M2 OP; +FERROUS SULFAT325 MG PO; +NEURONTIN300 MG PO; +POTASSIUM CHLO20 ME3 PO; +SOLIFENACIN SUC10 MG PO; +TROSPIUM CHLORI20 M1 PO
[2020-07-17 20:42] VITALS: BP 126/82
[2020-07-17 21:10] LABS: BASO % 0.5 % (0.0-1.0); EOS # 0.1 10*3/uL (0.0-0.4); EOS % 1.9 % (1.0-4.0); HEMATOCRIT 36.3 % (42.0-52.0); LYMPH # 1.5 10*3/uL (1.3-4.4); LYMPH % 23.6 % (27.0-41.0); MEAN CELL VOLUME 95.5 fl (80.0-94.0); MEAN CORPUSCULAR HGB 31.1 pg (27.0-31.0); MEAN CORPUSCULAR HGB CONC 32.5 g/dl (33.0-37.0); MEAN PLATELET VOLUME 11.2 fl (9.6-12.3); MONO # 0.5 10*3/uL (0.1-1.0); MONO % 8.2 % (3.0-9.0); NEUT # 4.2 10*3/uL (2.3-7.9); NEUT % 65.3 % (47.0-73.0); PLATELET COUNT AUTOMATED 135 10*3/uL (130-400); WHITE BLOOD COUNT 6.4 10*3/uL (4.8-10.8)
[2020-07-17 21:20] LABS: ACT PARTIAL THROMBO TIME 27.6 SECONDS (20.0-32.1); INTERNATIONAL NORM RATIO 1.1 (2.0-3.5)
[2020-07-17 21:26] LABS: ALBUMIN 3.4 gm/dl (3.1-4.5); ALKALINE PHOSPHATASE 109 U/L (45-117); BUN 33 mg/dl (7-24); CHLORIDE 104 mmol/L (98-107); CREATININE 1.74 mg/dL (0.70-1.30); LIPASE 54 U/L (73-393); POTASSIUM 3.8 mmol/L (3.5-5.1); SGOT/AST 23 IU/L (3-35); SGPT/ALT 31 U/L (12-78); SODIUM 142 mmol/L (136-145); TOTAL PROTEIN 6.8 gm/dL (6.4-8.2)
[2020-07-17 21:29] LABS: TROPONIN I < 0.015 ng/ml (<0.045)
[2020-07-17 23:09] LABS: BACTERIA 1+; BILIRUBIN Negative; BLOOD Negative (NEGATIVE); CLARITY Clear (CLEAR); COLOR Yellow (YELLOW); EPITHELIAL CELLS 16-20; GLUCOSE Negative; KETONE Negative; LEUKO ESTERASE Trace (NEGATIVE); NITRITE Negative (NEGATIVE); PH 5.5 (4.5-8.0); SPECIFIC GRAVITY 1.015 (1.001-1.030)
[2020-07-18 00:36] VITALS: BP 136/71
[2020-07-18 00:37] VITALS: BP 136/71
[2020-07-18 00:47] VITALS: BP 141/78
--- NOTE | 2020-07-18 00:47 | NUR ---
A 74, admitted to [facility], under the services of FLAQUITA Brink DO with a diagnosis of DIZZINESS, SYNCOPE. Chief complaint is DIZZINESS. Patient arrived via stretcher from ER. Monitor applied. Initial assessment completed. Vital signs taken and recorded. FLAQUITA BRINK DO notified of admission to the unit. Orders received. See assessment for past medical history, medications and allergies. Patient and/or family oriented to unit. [facility] visitation policy reviewed. Clothing/patient valuable form completed. KEVIN GOOD
--- NOTE | 2020-07-18 01:15 | NUR ---
RESIDENT CALLED & INFORMED MED REC UP TO DATE & ALSO NOTIFIED OF PATIENT REQUESTING SEVERAL MEDICATIONS TONIGHT.
[2020-07-18] MEDS ORDERED: DICLOFENAC SOD75 MG PO (01:28)
--- NOTE | 2020-07-18 04:00 | NUR ---
SITTING UP IN CHAIR IN ROOM. IV FLUIDS HUNG PER M.D. ORDERS. INFORMED PATIENT THAT DR. PEREZ CONSULTED DR. HONG.
--- NOTE | 2020-07-18 05:20 | NUR ---
RESTING IN CHAIR WITH EYES CLOSED. IV FLUIDS INFUSING ORDERED. CALL LIGHT WITHIN REACH.
--- NOTE | 2020-07-18 05:38 | NUR ---
LEFT MESSAGE WITH DR. HONG'S ANSWERING SERVICE PERTAINING TO PT. CONSULT.
--- NOTE | 2020-07-18 07:30 | NUR ---
TOOK OVER CARE OF PT AT THIS TIME. PT RESTING IN BED. NO S/S OF DISTRESS NOTED. RESPIRATIONS EASY AND UNLABORED ON ROOM AIR. CALL LIGHT IN REACH.
[2020-07-18 07:39] LABS: BASO % 0.5 % (0.0-1.0); EOS # 0.1 10*3/uL (0.0-0.4); EOS % 1.8 % (1.0-4.0); HEMATOCRIT 35.1 % (42.0-52.0); LYMPH % 31.9 % (27.0-41.0); MEAN CELL VOLUME 96.4 fl (80.0-94.0); MEAN CORPUSCULAR HGB CONC 32.2 g/dl (33.0-37.0); MEAN PLATELET VOLUME 10.9 fl (9.6-12.3); MONO # 0.5 10*3/uL (0.1-1.0); NEUT # 3.6 10*3/uL (2.3-7.9); NEUT % 57.3 % (47.0-73.0); PLATELET COUNT AUTOMATED 127 10*3/uL (130-400); RED BLOOD COUNT 3.64 10*6/uL (4.50-5.90); WHITE BLOOD COUNT 6.2 10*3/uL (4.8-10.8)
[2020-07-18 08:00] VITALS: BP 123/72
[2020-07-18 08:04] LABS: ALBUMIN 3.3 gm/dl (3.1-4.5); CREATININE 1.49 mg/dL (0.70-1.30); POTASSIUM 4.1 mmol/L (3.5-5.1); TOTAL PROTEIN 6.5 gm/dL (6.4-8.2)
[2020-07-18 12:00] VITALS: BP 129/84
--- NOTE | 2020-07-18 12:17 | NUR ---
Assistant Credit Manager in to talk to patient. Patient states lives at HOME with . There are 4 OUTSIDE steps in the home. Physician: DEANNA LARSEN [facility]acy: [facility] [place] [facility] [place] Home health services: NONE Patient's level of ADLs: INDEPENDENT Patient has working utilities: YES DME: NONE Follow-up physician's appointment after d/c: WILL BE MADE BY HOSPITALIST NURSE DIRECTOR ON DISCHARGE Does patient want to access PORTAL?: NO Discharge plan PT LIVES AT HOME WITH HIS AND IS INDEPENDENT IN HIS CARE. DENIES HE WILL HAVE NEEDS ON DISCHARGE. PLAN IS TO RETURN HOME WHEN MEDICALLY STABLE. WILL CONTINUE TO FOLLOW. STATES HE WILL HAVE A RIDE HOME ON DISCHARGE.. GAYLE HAND
--- NOTE | 2020-07-18 16:13 | NUR ---
Discharge instructions reviewed with patient/family. Patient receptive and verbalizes understanding. Follow-up care arranged. Written instructions given to patient/family. AREN OROZCO
== END 2020-07-18 16:13 | disposition home or self-care (01) ==
LOC: ED 20:15 → EDHOLD 22:36 → 4NE 22:50
PROVIDERS: Internal Medicine; Nurse Practitioner Family; ADMIT Internal Medicine; ATTEND Internal Medicine
DX: R55 Syncope and collapse (principal); R42 Dizziness and giddiness; D53.9 Nutritional anemia, unspecified; R82.71 Bacteriuria; E83.41 Hypermagnesemia; I12.9 Hypertensive chronic kidney disease with stage 1 through stage 4 chronic kidney disease, or unspecified chronic kidney disease; N18.3 Chronic kidney disease, stage 3 (moderate); E11.22 Type 2 diabetes mellitus with diabetic chronic kidney disease; I48.0 Paroxysmal atrial fibrillation; E11.40 Type 2 diabetes mellitus with diabetic neuropathy, unspecified; N40.0 Benign prostatic hyperplasia without lower urinary tract symptoms; F32.9 Major depressive disorder, single episode, unspecified; G25.81 Restless legs syndrome; M10.9 Gout, unspecified; K21.9 Gastro-esophageal reflux disease without esophagitis; E78.5 Hyperlipidemia, unspecified

== ENCOUNTER 2020-09-04 09:52 | Inpatient (IN) | payer MEDICARE ==
[~2020-09-04] VITALS: Ht 172.7 cm; Wt 122.9 kg
[~2020-09-04 09:52] MED LIST changes: +DICLOFENAC SOD75 MG T
[2020-09-04 10:26] VITALS: BP 118/56
[2020-09-04 11:00] LABS: EOS # 0.1 10*3/uL (0.0-0.4); EOS % 2.5 % (1.0-4.0); HEMATOCRIT 29.2 % (42.0-52.0); LYMPH # 0.6 10*3/uL (1.3-4.4); LYMPH % 19.3 % (27.0-41.0); MEAN CORPUSCULAR HGB 30.2 pg (27.0-31.0); MEAN CORPUSCULAR HGB CONC 30.5 g/dl (33.0-37.0); MEAN PLATELET VOLUME 10.6 fl (9.6-12.3); MONO # 0.2 10*3/uL (0.1-1.0); NEUT % 70.5 % (47.0-73.0); PLATELET COUNT AUTOMATED 133 10*3/uL (130-400); RED BLOOD COUNT 2.95 10*6/uL (4.50-5.90); RED CELL DISTRI WIDTH 13.1 % (0-14.5); WHITE BLOOD COUNT 2.9 10*3/uL (4.8-10.8)
[2020-09-04 11:12] LABS: ALBUMIN 2.8 gm/dl (3.1-4.5); ALKALINE PHOSPHATASE 111 U/L (45-117); BUN 24 mg/dl (7-24); CHLORIDE 112 mmol/L (98-107); CPK 126 U/L (39-308); CREATININE 1.57 mg/dL (0.70-1.30); LDH 209 U/L (87-241); POTASSIUM 3.4 mmol/L (3.5-5.1); SGOT/AST 28 IU/L (3-35); SGPT/ALT 25 U/L (12-78); SODIUM 145 mmol/L (136-145); TOTAL PROTEIN 6.5 gm/dL (6.4-8.2)
[2020-09-04 11:13] LABS: TROPONIN I < 0.015 ng/ml (<0.045)
[2020-09-04 11:16] LABS: ACT PARTIAL THROMBO TIME 35.7 SECONDS (20.0-32.1); INTERNATIONAL NORM RATIO 1.1 (2.0-3.5)
[2020-09-04 11:39] VITALS: BP 121/64
[2020-09-04 13:58] VITALS: BP 118/66
[2020-09-04 16:44] VITALS: BP 121/73; BP 123/71
[2020-09-04 18:28] VITALS: BP 121/63
[2020-09-04 19:38] LABS: ARTERIAL BLOOD GAS PH 7.329 (7.35-7.45)
[2020-09-04 20:48] LABS: ABG BASE EXCESS 1.1 mmol/L (-2.0-2.0); ARTERIAL BLOOD GAS PH 7.385 (7.35-7.45)
[2020-09-04 21:54] VITALS: BP 122/70
[2020-09-05 00:05] VITALS: BP 131/61
[2020-09-05] MEDS ORDERED: NEURONTIN600 MG PO (01:43)
[2020-09-05] MEDS ORDERED: NITROGLYCERIN0.4 MG SL (01:51)
[2020-09-05 03:06] LABS: BILIRUBIN Negative (Negative); BLOOD Negative (Negative); CLARITY Clear (Clear); COLOR Yellow (Yellow); GLUCOSE Trace (Negative); KETONE Negative (Negative); LEUKO ESTERASE Trace (Negative); NITRITE Negative (Negative); SPECIFIC GRAVITY 1.015 (1.001-1.030)
[2020-09-05 03:32] LABS: BACTERIA TRACE; EPITHELIAL CELLS 16-20
[2020-09-05 06:08] LABS: ALBUMIN 2.8 gm/dl (3.1-4.5); CREATININE 1.62 mg/dL (0.70-1.30); POTASSIUM 4.3 mmol/L (3.5-5.1); TOTAL PROTEIN 6.9 gm/dL (6.4-8.2)
[2020-09-05 06:32] LABS: HEMATOCRIT 30.2 % (42.0-52.0); MEAN CELL VOLUME 98.7 fl (80.0-94.0); MEAN CORPUSCULAR HGB 29.4 pg (27.0-31.0); MEAN CORPUSCULAR HGB CONC 29.8 g/dl (33.0-37.0); MEAN PLATELET VOLUME 11.1 fl (9.6-12.3); PLATELET COUNT AUTOMATED 130 10*3/uL (130-400); RED BLOOD COUNT 3.06 10*6/uL (4.50-5.90); RED CELL DISTRI WIDTH 12.9 % (0-14.5)
[2020-09-05 07:13] LABS: FERRITIN 98.9 ng/mL (22.0-322.0); VITAMIN D, 25-HYDROXY 42.9 ng/mL (30-100)
[2020-09-05 07:27] LABS: TOTAL CELLS COUNTED 100 #CELLS
[2020-09-05 07:29] LABS: PLATELET SUFFICIENCY NORMAL (NORMAL)
[2020-09-05 07:43] VITALS: BP 131/68
[2020-09-05 12:00] VITALS: BP 148/67
[2020-09-05 16:00] VITALS: BP 130/66
[2020-09-05 20:00] VITALS: BP 110/60
[2020-09-06] VITALS: BP 144/62
[2020-09-06 06:38] LABS: HEMATOCRIT 28.5 % (42.0-52.0); LYMPH # 0.6 10*3/uL (1.3-4.4); LYMPH % 6.5 % (27.0-41.0); MEAN CELL VOLUME 96.6 fl (80.0-94.0); MEAN CORPUSCULAR HGB 29.8 pg (27.0-31.0); MEAN CORPUSCULAR HGB CONC 30.9 g/dl (33.0-37.0); MEAN PLATELET VOLUME 11.2 fl (9.6-12.3); MONO # 0.5 10*3/uL (0.1-1.0); MONO % 5.5 % (3.0-9.0); NEUT # 7.4 10*3/uL (2.3-7.9); NEUT % 87.4 % (47.0-73.0); PLATELET COUNT AUTOMATED 162 10*3/uL (130-400); RED BLOOD COUNT 2.95 10*6/uL (4.50-5.90); RED CELL DISTRI WIDTH 12.7 % (0-14.5); WHITE BLOOD COUNT 8.4 10*3/uL (4.8-10.8)
[2020-09-06 06:46] LABS: ALBUMIN 2.9 gm/dl (3.1-4.5); CREATININE 1.54 mg/dL (0.70-1.30); POTASSIUM 4.2 mmol/L (3.5-5.1); TOTAL PROTEIN 6.8 gm/dL (6.4-8.2)
[2020-09-06 08:00] VITALS: BP 132/68
[2020-09-06] MEDS ORDERED: DECADRON6 M1 PO ×2 (11:37)
[2020-09-06 12:00] VITALS: BP 136/61
== END 2020-09-06 14:31 | disposition home or self-care (01) | DRG 177 ==
LOC: ED 09:52 → 4E 12:32 → EDHOLD 12:32 → 4E 20:33
PROVIDERS: Emergency Medicine; Student in an Organized Health Care Education/Training Program; ADMIT Internal Medicine; ATTEND Internal Medicine
DX: U07.1 COVID-19 (principal); J96.01 Acute respiratory failure with hypoxia; E43 Unspecified severe protein-calorie malnutrition; J12.89 Other viral pneumonia; D68.59 Other primary thrombophilia; N17.9 Acute kidney failure, unspecified; J45.901 Unspecified asthma with (acute) exacerbation; D53.9 Nutritional anemia, unspecified; E87.6 Hypokalemia; E87.8 Other disorders of electrolyte and fluid balance, not elsewhere classified; G47.33 Obstructive sleep apnea (adult) (pediatric); F43.10 Post-traumatic stress disorder, unspecified; N40.0 Benign prostatic hyperplasia without lower urinary tract symptoms; E11.40 Type 2 diabetes mellitus with diabetic neuropathy, unspecified; F32.9 Major depressive disorder, single episode, unspecified; G25.81 Restless legs syndrome; M10.9 Gout, unspecified; E55.9 Vitamin D deficiency, unspecified; N18.30 Chronic kidney disease, stage 3 unspecified; K21.9 Gastro-esophageal reflux disease without esophagitis; E78.5 Hyperlipidemia, unspecified; I25.10 Atherosclerotic heart disease of native coronary artery without angina pectoris; Z96.653 Presence of artificial knee joint, bilateral; I48.0 Paroxysmal atrial fibrillation; J20.9 Acute bronchitis, unspecified; E66.01 Morbid (severe) obesity due to excess calories; E11.65 Type 2 diabetes mellitus with hyperglycemia; E11.22 Type 2 diabetes mellitus with diabetic chronic kidney disease; I12.9 Hypertensive chronic kidney disease with stage 1 through stage 4 chronic kidney disease, or unspecified chronic kidney disease; E66.9 Obesity, unspecified; Z80.1 Family history of malignant neoplasm of trachea, bronchus and lung; Z79.899 Other long term (current) drug therapy; Z82.49 Family history of ischemic heart disease and other diseases of the circulatory system; Z88.8 Allergy status to other drugs, medicaments and biological substances; Z79.82 Long term (current) use of aspirin

== ENCOUNTER 2020-10-05 17:08 | Emergency (ER) | payer MEDICARE ==
[~2020-10-05] VITALS: Wt 110.2 kg
[~2020-10-05 17:08] MED LIST changes: +DECADRON6 M1 PO; +NEURONTIN600 MG PO; +NITROGLYCERIN0.4 MG SL
[2020-10-05 17:15] VITALS: BP 120/67
[2020-10-05 18:12] LABS: BASO % 0.7 % (0.0-1.0); EOS # 0.2 10*3/uL (0.0-0.4); EOS % 4.4 % (1.0-4.0); HEMATOCRIT 34.5 % (42.0-52.0); LYMPH # 1.2 10*3/uL (1.3-4.4); MEAN CELL VOLUME 94.8 fl (80.0-94.0); MEAN CORPUSCULAR HGB 29.4 pg (27.0-31.0); MEAN PLATELET VOLUME 11.6 fl (9.6-12.3); MONO # 0.4 10*3/uL (0.1-1.0); MONO % 9.6 % (3.0-9.0); NEUT # 2.2 10*3/uL (2.3-7.9); NEUT % 55.1 % (47.0-73.0); PLATELET COUNT AUTOMATED 133 10*3/uL (130-400); RED BLOOD COUNT 3.64 10*6/uL (4.50-5.90); RED CELL DISTRI WIDTH 13.5 % (0-14.5); WHITE BLOOD COUNT 4.1 10*3/uL (4.8-10.8)
[2020-10-05 18:26] LABS: ACT PARTIAL THROMBO TIME 28.7 SECONDS (20.0-32.1)
[2020-10-05 18:30] LABS: ALBUMIN 3.4 gm/dl (3.1-4.5); ALKALINE PHOSPHATASE 117 U/L (45-117); BUN 32 mg/dl (7-24); CHLORIDE 105 mmol/L (98-107); POTASSIUM 4.1 mmol/L (3.5-5.1); SGOT/AST 26 IU/L (3-35); SGPT/ALT 34 U/L (12-78); SODIUM 140 mmol/L (136-145); TOTAL PROTEIN 6.7 gm/dL (6.4-8.2)
[2020-10-05 18:34] LABS: TROPONIN I < 0.015 ng/ml (<0.045)
[2020-10-05] MEDS ORDERED: TESSALON PERLE100 MG PO (19:44)
[2020-10-05] MEDS ORDERED: ROPINIROLE HYDRO2 M2 PO (19:44)
== END 2020-10-05 19:48 | disposition home or self-care (01) ==
LOC: ED 17:08
PROVIDERS: Emergency Medicine
DX: R05 Cough (principal); R06.02 Shortness of breath; I25.10 Atherosclerotic heart disease of native coronary artery without angina pectoris; F32.9 Major depressive disorder, single episode, unspecified; E11.40 Type 2 diabetes mellitus with diabetic neuropathy, unspecified; K21.9 Gastro-esophageal reflux disease without esophagitis; E78.5 Hyperlipidemia, unspecified; E66.01 Morbid (severe) obesity due to excess calories; I25.2 Old myocardial infarction; I48.0 Paroxysmal atrial fibrillation; E11.22 Type 2 diabetes mellitus with diabetic chronic kidney disease; I13.0 Hypertensive heart and chronic kidney disease with heart failure and stage 1 through stage 4 chronic kidney disease, or unspecified chronic kidney disease; I50.9 Heart failure, unspecified; N18.30 Chronic kidney disease, stage 3 unspecified; Z88.8 Allergy status to other drugs, medicaments and biological substances; Z79.899 Other long term (current) drug therapy; Z96.653 Presence of artificial knee joint, bilateral; Z98.61 Coronary angioplasty status; Z86.73 Personal history of transient ischemic attack (TIA), and cerebral infarction without residual deficits

== ENCOUNTER 2021-02-07 06:59 | Emergency (ER) | payer MEDICARE ==
[~2021-02-07] VITALS: Wt 104.3 kg
[~2021-02-07 06:59] MED LIST changes: +ROPINIROLE HYDRO2 M2 PO; +TESSALON PERLE100 MG PO
[2021-02-07 07:09] VITALS: BP 145/86
[2021-02-07 07:54] LABS: BASO % 0.3 % (0.0-1.0); EOS # 0.2 10*3/uL (0.0-0.4); EOS % 2.2 % (1.0-4.0); HEMATOCRIT 37.9 % (42.0-52.0); LYMPH # 1.4 10*3/uL (1.3-4.4); LYMPH % 16.4 % (27.0-41.0); MEAN CELL VOLUME 91.3 fl (80.0-94.0); MEAN CORPUSCULAR HGB 29.4 pg (27.0-31.0); MEAN CORPUSCULAR HGB CONC 32.2 g/dl (33.0-37.0); MEAN PLATELET VOLUME 10.6 fl (9.6-12.3); MONO # 0.5 10*3/uL (0.1-1.0); MONO % 6.3 % (3.0-9.0); NEUT # 6.4 10*3/uL (2.3-7.9); NEUT % 74.5 % (47.0-73.0); PLATELET COUNT AUTOMATED 160 10*3/uL (130-400); RED BLOOD COUNT 4.15 10*6/uL (4.50-5.90); RED CELL DISTRI WIDTH 15.3 % (0-14.5); WHITE BLOOD COUNT 8.6 10*3/uL (4.8-10.8)
[2021-02-07 08:05] LABS: ACT PARTIAL THROMBO TIME 29.6 SECONDS (20.0-32.1); BUN 19 mg/dl (7-24); CHLORIDE 107 mmol/L (98-107); CREATININE 1.23 mg/dL (0.70-1.30); INTERNATIONAL NORM RATIO 1.1 (2.0-3.5); POTASSIUM 3.5 mmol/L (3.5-5.1); SODIUM 143 mmol/L (136-145)
[2021-02-07] MEDS ORDERED: COLCRYS0.6 M1 PO (08:36)
== END 2021-02-07 08:42 | disposition home or self-care (01) ==
LOC: ED 06:59
PROVIDERS: Emergency Medicine
DX: I25.10 Atherosclerotic heart disease of native coronary artery without angina pectoris (principal); I12.9 Hypertensive chronic kidney disease with stage 1 through stage 4 chronic kidney disease, or unspecified chronic kidney disease; E11.22 Type 2 diabetes mellitus with diabetic chronic kidney disease; N18.30 Chronic kidney disease, stage 3 unspecified; I48.91 Unspecified atrial fibrillation; F32.9 Major depressive disorder, single episode, unspecified; K21.9 Gastro-esophageal reflux disease without esophagitis; M10.9 Gout, unspecified; E78.5 Hyperlipidemia, unspecified; G47.33 Obstructive sleep apnea (adult) (pediatric); E66.01 Morbid (severe) obesity due to excess calories; Z95.818 Presence of other cardiac implants and grafts; Z79.899 Other long term (current) drug therapy; Z79.2 Long term (current) use of antibiotics; Z96.651 Presence of right artificial knee joint; Z96.652 Presence of left artificial knee joint; Z98.890 Other specified postprocedural states

== ENCOUNTER 2021-06-03 19:05 | Emergency (ER) | payer MEDICARE ==
[~2021-06-03] VITALS: Ht 175.2 cm; Wt 94.8 kg
[~2021-06-03 19:05] MED LIST changes: +COLCRYS0.6 M1 PO
[2021-06-03 19:29] VITALS: BP 131/70
[2021-06-03 21:15] LABS: BASO % 0.5 % (0.0-1.0); EOS # 0.2 10*3/uL (0.0-0.4); EOS % 2.3 % (1.0-4.0); HEMATOCRIT 40.1 % (42.0-52.0); LYMPH # 1.9 10*3/uL (1.3-4.4); LYMPH % 23.7 % (27.0-41.0); MEAN CELL VOLUME 94.6 fl (80.0-94.0); MEAN CORPUSCULAR HGB 31.6 pg (27.0-31.0); MEAN CORPUSCULAR HGB CONC 33.4 g/dl (33.0-37.0); MEAN PLATELET VOLUME 11.5 fl (9.6-12.3); MONO # 0.6 10*3/uL (0.1-1.0); MONO % 7.7 % (3.0-9.0); NEUT # 5.2 10*3/uL (2.3-7.9); NEUT % 65.7 % (47.0-73.0); PLATELET COUNT AUTOMATED 175 10*3/uL (130-400); RED BLOOD COUNT 4.24 10*6/uL (4.50-5.90); RED CELL DISTRI WIDTH 14.4 % (0-14.5); WHITE BLOOD COUNT 7.8 10*3/uL (4.8-10.8)
[2021-06-03 21:31] LABS: ALBUMIN 3.8 gm/dl (3.1-4.5); CREATININE 1.68 mg/dL (0.70-1.30); POTASSIUM 3.1 mmol/L (3.5-5.1); TOTAL PROTEIN 7.6 gm/dL (6.4-8.2)
[2021-06-04] MEDS ORDERED: MIRALAX POWDER17 G1 PO ×2 (01:12)
== END 2021-06-04 01:19 | disposition home or self-care (01) ==
LOC: ED 19:05
PROVIDERS: Internal Medicine
DX: K59.00 Constipation, unspecified (principal); N17.9 Acute kidney failure, unspecified; N18.9 Chronic kidney disease, unspecified; E87.6 Hypokalemia; R19.7 Diarrhea, unspecified; Z88.8 Allergy status to other drugs, medicaments and biological substances; Z79.899 Other long term (current) drug therapy; Z96.653 Presence of artificial knee joint, bilateral; Z98.61 Coronary angioplasty status; Z98.890 Other specified postprocedural states

== ENCOUNTER 2021-06-13 18:51 | Inpatient (IN) | payer MEDICARE ==
[~2021-06-13] VITALS: Ht 172.7 cm; Wt 95.7 kg
[~2021-06-13 18:51] MED LIST changes: +MIRALAX POWDER17 G1 PO
[2021-06-13 18:59] VITALS: BP 76/32
[2021-06-13 19:00] VITALS: BP 76/32
[2021-06-13 19:53] LABS: BASO % 0.5 % (0.0-1.0); EOS # 0.2 10*3/uL (0.0-0.4); HEMATOCRIT 37.9 % (42.0-52.0); LYMPH # 1.8 10*3/uL (1.3-4.4); LYMPH % 20.8 % (27.0-41.0); MEAN CORPUSCULAR HGB 31.3 pg (27.0-31.0); MEAN PLATELET VOLUME 11.6 fl (9.6-12.3); MONO # 0.7 10*3/uL (0.1-1.0); NEUT # 5.9 10*3/uL (2.3-7.9); PLATELET COUNT AUTOMATED 199 10*3/uL (130-400); RED BLOOD COUNT 3.99 10*6/uL (4.50-5.90); RED CELL DISTRI WIDTH 13.2 % (0-14.5); WHITE BLOOD COUNT 8.7 10*3/uL (4.8-10.8)
[2021-06-13 20:11] LABS: ALBUMIN 3.8 gm/dl (3.1-4.5); CREATININE 1.89 mg/dL (0.70-1.30); TOTAL PROTEIN 6.9 gm/dL (6.4-8.2); TROPONIN I 0.015 ng/ml (<0.045)
[2021-06-13 21:35] VITALS: BP 102/54
[2021-06-13 22:43] LABS: BILIRUBIN Negative (Negative); BLOOD Negative (Negative); CLARITY Clear (Clear); COLOR Yellow (Yellow); GLUCOSE Negative (Negative); KETONE Negative (Negative); LEUKO ESTERASE 2+ (Negative); NITRITE Negative (Negative); PH 5.5 (4.5-8.0); UROBILINOGEN 0.2 E.U./dl (0.0-1.0)
[2021-06-13 22:56] LABS: BACTERIA TRACE; EPITHELIAL CELLS 21-30
[2021-06-13 23:40] VITALS: BP 124/68
[2021-06-14 06:28] LABS: BASO % 0.6 % (0.0-1.0); EOS # 0.2 10*3/uL (0.0-0.4); EOS % 2.4 % (1.0-4.0); HEMATOCRIT 33.5 % (42.0-52.0); LYMPH # 2.2 10*3/uL (1.3-4.4); MEAN CELL VOLUME 94.4 fl (80.0-94.0); MEAN CORPUSCULAR HGB 32.1 pg (27.0-31.0); MEAN PLATELET VOLUME 12.2 fl (9.6-12.3); MONO # 0.5 10*3/uL (0.1-1.0); MONO % 7.9 % (3.0-9.0); NEUT # 3.7 10*3/uL (2.3-7.9); NEUT % 55.7 % (47.0-73.0); PLATELET COUNT AUTOMATED 154 10*3/uL (130-400); RED BLOOD COUNT 3.55 10*6/uL (4.50-5.90); RED CELL DISTRI WIDTH 13.1 % (0-14.5); WHITE BLOOD COUNT 6.7 10*3/uL (4.8-10.8)
[2021-06-14 06:44] LABS: ALBUMIN 3.2 gm/dl (3.1-4.5); CREATININE 1.57 mg/dL (0.70-1.30); FREE T4 0.9 ng/dl (0.76-1.46); POTASSIUM 3.5 mmol/L (3.5-5.1); TOTAL PROTEIN 6.1 gm/dL (6.4-8.2)
[2021-06-14 06:49] LABS: THYROID STIM HORMONE (HS) 2.47 uIU/ml (0.358-4.75)
[2021-06-14 08:00] VITALS: BP 93/54
[2021-06-14 08:23] LABS: VITAMIN D, 25-HYDROXY 70.8 ng/mL (30-100)
== END 2021-06-14 10:40 | disposition home or self-care (01) | DRG 640 ==
LOC: ED 18:51 → EDHOLD 21:50 → 5E 22:47
PROVIDERS: Emergency Medicine; Internal Medicine; ADMIT Student in an Organized Health Care Education/Training Program; ATTEND Student in an Organized Health Care Education/Training Program
DX: E86.0 Dehydration (principal); N17.0 Acute kidney failure with tubular necrosis; D69.3 Immune thrombocytopenic purpura; E87.1 Hypo-osmolality and hyponatremia; I95.9 Hypotension, unspecified; R55 Syncope and collapse; D53.9 Nutritional anemia, unspecified; E87.8 Other disorders of electrolyte and fluid balance, not elsewhere classified; E80.6 Other disorders of bilirubin metabolism; E11.42 Type 2 diabetes mellitus with diabetic polyneuropathy; G47.33 Obstructive sleep apnea (adult) (pediatric); F43.10 Post-traumatic stress disorder, unspecified; N40.0 Benign prostatic hyperplasia without lower urinary tract symptoms; F32.9 Major depressive disorder, single episode, unspecified; G25.81 Restless legs syndrome; M1A.9XX0 Chronic gout, unspecified, without tophus (tophi); E55.9 Vitamin D deficiency, unspecified; I12.9 Hypertensive chronic kidney disease with stage 1 through stage 4 chronic kidney disease, or unspecified chronic kidney disease; Z96.653 Presence of artificial knee joint, bilateral; N18.32 Chronic kidney disease, stage 3b; E11.22 Type 2 diabetes mellitus with diabetic chronic kidney disease; K21.9 Gastro-esophageal reflux disease without esophagitis; E78.5 Hyperlipidemia, unspecified; E66.01 Morbid (severe) obesity due to excess calories; I25.10 Atherosclerotic heart disease of native coronary artery without angina pectoris; I48.0 Paroxysmal atrial fibrillation; Z86.16 Personal history of COVID-19; I25.2 Old myocardial infarction; Z95.1 Presence of aortocoronary bypass graft; Z82.49 Family history of ischemic heart disease and other diseases of the circulatory system; Z80.1 Family history of malignant neoplasm of trachea, bronchus and lung; Z80.51 Family history of malignant neoplasm of kidney; Z83.3 Family history of diabetes mellitus; Z88.8 Allergy status to other drugs, medicaments and biological substances; Z79.899 Other long term (current) drug therapy; Z68.32 Body mass index [BMI] 32.0-32.9, adult

== ENCOUNTER 2021-07-01 22:53 | Emergency (ER) | payer OTHER ==
[~2021-07-01] VITALS: Ht 172.7 cm; Wt 95.3 kg
[2021-07-02 00:29] VITALS: BP 114/57
[2021-07-02 00:46] LABS: BASO % 0.5 % (0.0-1.0); EOS # 0.2 10*3/uL (0.0-0.4); EOS % 3.1 % (1.0-4.0); HEMATOCRIT 33.1 % (42.0-52.0); LYMPH # 1.6 10*3/uL (1.3-4.4); LYMPH % 26.2 % (27.0-41.0); MEAN CELL VOLUME 96.5 fl (80.0-94.0); MEAN CORPUSCULAR HGB 32.1 pg (27.0-31.0); MEAN CORPUSCULAR HGB CONC 33.2 g/dl (33.0-37.0); MEAN PLATELET VOLUME 10.8 fl (9.6-12.3); MONO # 0.4 10*3/uL (0.1-1.0); MONO % 6.3 % (3.0-9.0); NEUT # 3.9 10*3/uL (2.3-7.9); NEUT % 63.6 % (47.0-73.0); PLATELET COUNT AUTOMATED 153 10*3/uL (130-400); RED BLOOD COUNT 3.43 10*6/uL (4.50-5.90); RED CELL DISTRI WIDTH 13.8 % (0-14.5); WHITE BLOOD COUNT 6.2 10*3/uL (4.8-10.8)
[2021-07-02 01:03] LABS: ALBUMIN 2.9 gm/dl (3.1-4.5); ALKALINE PHOSPHATASE 111 U/L (45-117); BUN 25 mg/dl (7-24); CHLORIDE 105 mmol/L (98-107); CREATININE 1.53 mg/dL (0.70-1.30); POTASSIUM 3.5 mmol/L (3.5-5.1); SGOT/AST 19 IU/L (3-35); SGPT/ALT 22 U/L (12-78); SODIUM 142 mmol/L (136-145); TOTAL PROTEIN 6.7 gm/dL (6.4-8.2)
[2021-07-02 01:05] LABS: TROPONIN I < 0.015 ng/ml (<0.045)
== END 2021-07-02 03:28 | disposition home or self-care (01) ==
LOC: ED 22:53
PROVIDERS: Emergency Medicine
DX: E83.42 Hypomagnesemia (principal); I12.9 Hypertensive chronic kidney disease with stage 1 through stage 4 chronic kidney disease, or unspecified chronic kidney disease; E11.22 Type 2 diabetes mellitus with diabetic chronic kidney disease; N18.30 Chronic kidney disease, stage 3 unspecified; J44.9 Chronic obstructive pulmonary disease, unspecified; Z79.899 Other long term (current) drug therapy; Z96.653 Presence of artificial knee joint, bilateral; Z98.890 Other specified postprocedural states

== ENCOUNTER 2021-08-29 16:46 | Emergency (ER) | payer MEDICARE ==
[~2021-08-29] VITALS: Wt 97.5 kg
[2021-08-29 16:51] VITALS: BP 149/73
[2021-08-29] MEDS ORDERED: HYDROCODONE-AC1 EAC1 PO (19:19)
== END 2021-08-29 19:34 | disposition home or self-care (01) ==
LOC: ED 16:46
DX: S60.221A Contusion of right hand, initial encounter (principal); S30.0XXA Contusion of lower back and pelvis, initial encounter; Z88.8 Allergy status to other drugs, medicaments and biological substances; Z79.899 Other long term (current) drug therapy; W18.39XA Other fall on same level, initial encounter; Y93.89 Activity, other specified; Y92.89 Other specified places as the place of occurrence of the external cause; Y99.8 Other external cause status

== ENCOUNTER 2022-01-20 16:29 | Inpatient (IN) | payer MEDICARE ==
[~2022-01-20] VITALS: Ht 172.7 cm; Wt 104.5 kg
[2022-01-20 16:29] VITALS: BP 102/55
[~2022-01-20 16:29] MED LIST changes: +HYDROCODONE-AC1 EAC1 PO; +METFORMIN HYDR500 MG PO
[2022-01-20 18:03] LABS: CREATININE 1.82 mg/dL (0.70-1.30); POTASSIUM 4.1 mmol/L (3.5-5.1); TOTAL PROTEIN 6.7 gm/dL (6.4-8.2)
[2022-01-20 18:06] LABS: BASO % 0.4 % (0.0-1.0); EOS # 0.1 10*3/uL (0.0-0.4); EOS % 1.9 % (1.0-4.0); HEMATOCRIT 34.7 % (42.0-52.0); LYMPH % 29.7 % (27.0-41.0); MEAN CELL VOLUME 96.7 fl (80.0-94.0); MEAN CORPUSCULAR HGB 30.9 pg (27.0-31.0); MEAN PLATELET VOLUME 11.1 fl (9.6-12.3); MONO # 0.5 10*3/uL (0.1-1.0); MONO % 7.9 % (3.0-9.0); NEUT # 4.1 10*3/uL (2.3-7.9); NEUT % 59.8 % (47.0-73.0); PLATELET COUNT AUTOMATED 125 10*3/uL (130-400); RED BLOOD COUNT 3.59 10*6/uL (4.50-5.90); RED CELL DISTRI WIDTH 13.4 % (0-14.5); WHITE BLOOD COUNT 6.8 10*3/uL (4.8-10.8)
[2022-01-20 18:21] VITALS: BP 119/67
[2022-01-20 18:24] LABS: BILIRUBIN Negative (Negative); BLOOD Negative (Negative); CLARITY Clear (Clear); COLOR Yellow (Yellow); GLUCOSE Negative (Negative); KETONE Negative (Negative); LEUKO ESTERASE Negative (Negative); NITRITE Negative (Negative); UROBILINOGEN 0.2 E.U./dl (0.0-1.0)
[2022-01-20 18:28] LABS: URINE AMPHETAMINES < 1000 (1000ng/ml); URINE BARBITURATES < 200 (200ng/ml); URINE BENZODIAZEPINES < 200 (200ng/ml); URINE CANNABINOIDS (THC) < 50 (50ng/ml); URINE COCAINE < 300 (300ng/ml); URINE METHADONE < 300 (300ng/ml); URINE OPIATES < 300 (300ng/ml)
[2022-01-20 18:31] LABS: URINE PHENCYCLIDINE < 25 (25ng/ml)
[2022-01-20 18:40] LABS: BACTERIA TRACE
[2022-01-20 19:26] VITALS: BP 122/68
[2022-01-20 22:50] VITALS: BP 129/80
[2022-01-20] MEDS ORDERED: ALLOPURINOL300 MG PO (23:02)
[2022-01-20] MEDS ORDERED: INSULIN LI100 UNIT/1 SQ (23:04)
[2022-01-20] MEDS ORDERED: LASIX40 MG PO (23:04)
[2022-01-20] MEDS ORDERED: MAGNESIUM OXID420 M1 PO (23:05)
[2022-01-20] MEDS ORDERED: NITROSTAT0.4 MG SL (23:08)
[2022-01-20] MEDS ORDERED: TROSPIUM CHLORI20 M1 PO (23:08)
[2022-01-21] VITALS: BP 129/67
[2022-01-21 01:34] LABS: CHOLESTEROL 87 mg/dL (<200); LDL CHOLESTEROL 34 mg/dL (9-159); TRIGLYCERIDES 105 mg/dl (<150)
[2022-01-21 06:27] LABS: ACT PARTIAL THROMBO TIME 28.4 SECONDS (20.0-32.1)
[2022-01-21 06:28] LABS: CREATININE 1.71 mg/dL (0.70-1.30); POTASSIUM 4.2 mmol/L (3.5-5.1); TOTAL PROTEIN 6.9 gm/dL (6.4-8.2)
[2022-01-21 06:37] LABS: BASO % 0.3 % (0.0-1.0); EOS # 0.1 10*3/uL (0.0-0.4); EOS % 2.2 % (1.0-4.0); HEMATOCRIT 36.4 % (42.0-52.0); LYMPH # 1.8 10*3/uL (1.3-4.4); LYMPH % 28.9 % (27.0-41.0); MEAN CELL VOLUME 96.6 fl (80.0-94.0); MEAN CORPUSCULAR HGB 31.3 pg (27.0-31.0); MEAN CORPUSCULAR HGB CONC 32.4 g/dl (33.0-37.0); MEAN PLATELET VOLUME 11.4 fl (9.6-12.3); MONO # 0.4 10*3/uL (0.1-1.0); MONO % 6.4 % (3.0-9.0); NEUT # 3.9 10*3/uL (2.3-7.9); NEUT % 61.9 % (47.0-73.0); PLATELET COUNT AUTOMATED 136 10*3/uL (130-400); RED BLOOD COUNT 3.77 10*6/uL (4.50-5.90); RED CELL DISTRI WIDTH 13.5 % (0-14.5); WHITE BLOOD COUNT 6.4 10*3/uL (4.8-10.8)
[2022-01-21 08:00] VITALS: BP 117/70
[2022-01-21 08:30] LABS: VITAMIN D, 25-HYDROXY 44.2 ng/mL (30-100)
[2022-01-21 12:00] VITALS: BP 114/61
[2022-01-21 16:00] VITALS: BP 110/56
[2022-01-21 20:00] VITALS: BP 117/60
[2022-01-22] VITALS: BP 126/69
[2022-01-22 05:22] LABS: CREATININE 1.47 mg/dL (0.70-1.30); POTASSIUM 3.8 mmol/L (3.5-5.1)
[2022-01-22 06:25] LABS: BASO % 0.4 % (0.0-1.0); EOS # 0.1 10*3/uL (0.0-0.4); EOS % 2.6 % (1.0-4.0); HEMATOCRIT 34.2 % (42.0-52.0); LYMPH # 1.4 10*3/uL (1.3-4.4); LYMPH % 25.5 % (27.0-41.0); MEAN CELL VOLUME 94.5 fl (80.0-94.0); MEAN CORPUSCULAR HGB 30.7 pg (27.0-31.0); MEAN CORPUSCULAR HGB CONC 32.5 g/dl (33.0-37.0); MEAN PLATELET VOLUME 11.5 fl (9.6-12.3); MONO # 0.4 10*3/uL (0.1-1.0); MONO % 6.9 % (3.0-9.0); NEUT # 3.5 10*3/uL (2.3-7.9); NEUT % 64.4 % (47.0-73.0); PLATELET COUNT AUTOMATED 129 10*3/uL (130-400); RED BLOOD COUNT 3.62 10*6/uL (4.50-5.90); RED CELL DISTRI WIDTH 13.2 % (0-14.5); WHITE BLOOD COUNT 5.5 10*3/uL (4.8-10.8)
[2022-01-22 08:00] VITALS: BP 122/56
[2022-01-22] MEDS ORDERED: ASPIRIN CHILDRE81 MG PO (09:54)
== END 2022-01-22 10:56 | disposition home or self-care (01) | DRG 682 ==
LOC: ED 16:29 → EDHOLD 21:15 → 4E 21:15
PROVIDERS: Emergency Medicine; Internal Medicine; Student in an Organized Health Care Education/Training Program; ADMIT Internal Medicine; ATTEND Internal Medicine
DX: N17.0 Acute kidney failure with tubular necrosis (principal); G93.41 Metabolic encephalopathy; I25.810 Atherosclerosis of coronary artery bypass graft(s) without angina pectoris; I95.2 Hypotension due to drugs; I12.9 Hypertensive chronic kidney disease with stage 1 through stage 4 chronic kidney disease, or unspecified chronic kidney disease; E11.22 Type 2 diabetes mellitus with diabetic chronic kidney disease; N18.30 Chronic kidney disease, stage 3 unspecified; D53.9 Nutritional anemia, unspecified; D69.6 Thrombocytopenia, unspecified; E11.65 Type 2 diabetes mellitus with hyperglycemia; G47.33 Obstructive sleep apnea (adult) (pediatric); F43.10 Post-traumatic stress disorder, unspecified; N40.0 Benign prostatic hyperplasia without lower urinary tract symptoms; E11.40 Type 2 diabetes mellitus with diabetic neuropathy, unspecified; F32.A Depression, unspecified; G25.81 Restless legs syndrome; M10.9 Gout, unspecified; K21.9 Gastro-esophageal reflux disease without esophagitis; E78.5 Hyperlipidemia, unspecified; M79.606 Pain in leg, unspecified; G89.29 Other chronic pain; E86.0 Dehydration; Z96.653 Presence of artificial knee joint, bilateral; Z88.8 Allergy status to other drugs, medicaments and biological substances; Z79.1 Long term (current) use of non-steroidal anti-inflammatories (NSAID); Z79.899 Other long term (current) drug therapy

== ENCOUNTER 2022-02-22 21:58 | Emergency (ER) | payer MEDICARE ==
[~2022-02-22 21:58] MED LIST changes: +ALLOPURINOL300 MG PO; +ASPIRIN CHILDRE81 MG PO; +INSULIN LI100 UNIT/1 SQ; +MAGNESIUM OXID420 M1 PO
[2022-02-22 22:03] VITALS: BP 93/45
[2022-02-22 23:55] LABS: BASO % 0.3 % (0.0-1.0); EOS # 0.2 10*3/uL (0.0-0.4); EOS % 2.5 % (1.0-4.0); HEMATOCRIT 30.9 % (42.0-52.0); LYMPH # 2.8 10*3/uL (1.3-4.4); LYMPH % 42.6 % (27.0-41.0); MEAN CELL VOLUME 94.2 fl (80.0-94.0); MEAN CORPUSCULAR HGB 30.8 pg (27.0-31.0); MEAN CORPUSCULAR HGB CONC 32.7 g/dl (33.0-37.0); MEAN PLATELET VOLUME 10.7 fl (9.6-12.3); MONO # 0.6 10*3/uL (0.1-1.0); MONO % 8.9 % (3.0-9.0); NEUT % 45.5 % (47.0-73.0); PLATELET COUNT AUTOMATED 130 10*3/uL (130-400); RED BLOOD COUNT 3.28 10*6/uL (4.50-5.90); RED CELL DISTRI WIDTH 13.2 % (0-14.5); WHITE BLOOD COUNT 6.5 10*3/uL (4.8-10.8)
[2022-02-23 00:20] LABS: CREATININE 2.05 mg/dL (0.70-1.30); POTASSIUM 3.8 mmol/L (3.5-5.1); TOTAL PROTEIN 6.4 gm/dL (6.4-8.2)
== END 2022-02-23 02:16 | disposition home or self-care (01) ==
LOC: ED 21:58
PROVIDERS: Emergency Medicine
DX: G25.81 Restless legs syndrome (principal); N17.9 Acute kidney failure, unspecified; E11.40 Type 2 diabetes mellitus with diabetic neuropathy, unspecified

== ENCOUNTER 2022-06-15 09:30 | Emergency (ER) | payer OTHER ==
[~2022-06-15] VITALS: Ht 175.2 cm; Wt 97.5 kg
[2022-06-15 11:10] VITALS: BP 166/82
[2022-06-15] MEDS ORDERED: LEVOFLOXACIN750 M2 PO (11:25)
== END 2022-06-15 11:40 | disposition home or self-care (01) ==
LOC: ED 09:30
DX: H66.011 Acute suppurative otitis media with spontaneous rupture of ear drum, right ear (principal); Z88.8 Allergy status to other drugs, medicaments and biological substances; Z79.899 Other long term (current) drug therapy; Z98.890 Other specified postprocedural states

== ENCOUNTER → 2022-07-17 | Outpatient (CLI) | payer MEDICARE ==
[~2022-07-17] MED LIST changes: +LEVOFLOXACIN750 M2 PO
== END | disposition home or self-care (01) ==
LOC: US 08:04
PROVIDERS: ATTEND Orthopaedic Surgery
DX: I73.9 Peripheral vascular disease, unspecified (principal); Z96.653 Presence of artificial knee joint, bilateral

== ENCOUNTER 2022-08-30 19:21 | Inpatient (IN) | payer MEDICARE ==
[~2022-08-30] VITALS: Ht 170.2 cm; Wt 97.3 kg
[2022-08-30 19:47] VITALS: BP 102/72
[2022-08-30] MEDS ORDERED: LOSARTAN POTAS100 M1 PO (19:48)
[2022-08-30] MEDS ORDERED: ZOLOFT50 MG PO (19:48)
[2022-08-30 20:24] LABS: BASO # 0.1 10*3/uL (0.0-0.1); BASO % 0.5 % (0.0-1.0); EOS # 0.2 10*3/uL (0.0-0.4); EOS % 1.7 % (1.0-4.0); HEMATOCRIT 38.1 % (42.0-52.0); LYMPH # 2.2 10*3/uL (1.3-4.4); LYMPH % 23.4 % (27.0-41.0); MEAN CELL VOLUME 93.8 fl (80.0-94.0); MEAN CORPUSCULAR HGB 30.5 pg (27.0-31.0); MEAN CORPUSCULAR HGB CONC 32.5 g/dl (33.0-37.0); MEAN PLATELET VOLUME 11.1 fl (9.6-12.3); MONO # 0.9 10*3/uL (0.1-1.0); NEUT # 5.9 10*3/uL (2.3-7.9); NEUT % 64.1 % (47.0-73.0); PLATELET COUNT AUTOMATED 200 10*3/uL (130-400); RED BLOOD COUNT 4.06 10*6/uL (4.50-5.90); RED CELL DISTRI WIDTH 13.8 % (0-14.5); WHITE BLOOD COUNT 9.2 10*3/uL (4.8-10.8)
[2022-08-30 20:37] LABS: ACT PARTIAL THROMBO TIME 30.6 SECONDS (20.0-32.1)
[2022-08-30 20:43] LABS: CREATININE 1.88 mg/dL (0.70-1.30); POTASSIUM 4.1 mmol/L (3.5-5.1); TOTAL PROTEIN 7.9 gm/dL (6.4-8.2)
[2022-08-30 21:10] VITALS: BP 122/72
[2022-08-31 00:33] VITALS: BP 135/76
[2022-08-31 03:31] VITALS: BP 150/81
[2022-08-31 04:31] LABS: BASO # 0.1 10*3/uL (0.0-0.1); BASO % 0.9 % (0.0-1.0); EOS # 0.2 10*3/uL (0.0-0.4); EOS % 2.4 % (1.0-4.0); HEMATOCRIT 37.4 % (42.0-52.0); LYMPH % 28.4 % (27.0-41.0); MEAN CELL VOLUME 94.4 fl (80.0-94.0); MEAN CORPUSCULAR HGB 30.6 pg (27.0-31.0); MEAN CORPUSCULAR HGB CONC 32.4 g/dl (33.0-37.0); MONO # 0.7 10*3/uL (0.1-1.0); MONO % 9.6 % (3.0-9.0); NEUT # 4.1 10*3/uL (2.3-7.9); NEUT % 58.3 % (47.0-73.0); PLATELET COUNT AUTOMATED 174 10*3/uL (130-400); RED BLOOD COUNT 3.96 10*6/uL (4.50-5.90); RED CELL DISTRI WIDTH 13.7 % (0-14.5)
[2022-08-31 05:48] LABS: CREATININE 1.6 mg/dL (0.70-1.30); POTASSIUM 4.4 mmol/L (3.5-5.1)
[2022-08-31 05:56] VITALS: BP 132/71
[2022-08-31 13:50] VITALS: BP 116/70
[2022-08-31 16:00] VITALS: BP 134/68
[2022-08-31 20:00] VITALS: BP 139/71
[2022-09-01] VITALS: BP 148/83
[2022-09-01 06:13] LABS: CREATININE 1.52 mg/dL (0.70-1.30); POTASSIUM 4.1 mmol/L (3.5-5.1)
[2022-09-01 06:27] LABS: BASO # 0.1 10*3/uL (0.0-0.1); BASO % 0.6 % (0.0-1.0); EOS # 0.1 10*3/uL (0.0-0.4); EOS % 1.3 % (1.0-4.0); HEMATOCRIT 37.2 % (42.0-52.0); LYMPH # 1.9 10*3/uL (1.3-4.4); LYMPH % 18.6 % (27.0-41.0); MEAN CELL VOLUME 93.5 fl (80.0-94.0); MEAN CORPUSCULAR HGB 30.2 pg (27.0-31.0); MEAN CORPUSCULAR HGB CONC 32.3 g/dl (33.0-37.0); MEAN PLATELET VOLUME 11.4 fl (9.6-12.3); MONO # 0.9 10*3/uL (0.1-1.0); MONO % 8.7 % (3.0-9.0); NEUT # 7.2 10*3/uL (2.3-7.9); NEUT % 70.5 % (47.0-73.0); PLATELET COUNT AUTOMATED 224 10*3/uL (130-400); RED BLOOD COUNT 3.98 10*6/uL (4.50-5.90); RED CELL DISTRI WIDTH 13.4 % (0-14.5); WHITE BLOOD COUNT 10.2 10*3/uL (4.8-10.8)
[2022-09-01 08:00] VITALS: BP 178/89
[2022-09-01 08:25] LABS: BILIRUBIN Negative (Negative); BLOOD Negative (Negative); CLARITY Clear (Clear); COLOR Yellow (Yellow); GLUCOSE Negative (Negative); KETONE Negative (Negative); LEUKO ESTERASE Negative (Negative); NITRITE Negative (Negative); UROBILINOGEN 0.2 E.U./dl (0.0-1.0)
[2022-09-01 08:40] LABS: RBC 0-2 rbc/hpf (0-2); WBC 0-2 wbc/hpf (0-5)
[2022-09-01 09:45] VITALS: BP 108/72
[2022-09-01 12:00] VITALS: BP 131/82
[2022-09-01 16:00] VITALS: BP 171/93
== END 2022-09-01 20:05 | disposition short-term general hospital (02) | DRG 391 ==
LOC: ED 19:21 → ICCU 23:56 → EDHOLD 23:56 → 4E 23:56 → ICCU 09-01 10:29
PROVIDERS: Emergency Medicine; Family Medicine; Internal Medicine; ADMIT Emergency Medicine; ATTEND Emergency Medicine
DX: K21.9 Gastro-esophageal reflux disease without esophagitis (principal); N17.0 Acute kidney failure with tubular necrosis; I47.1 Supraventricular tachycardia; R65.10 Systemic inflammatory response syndrome (SIRS) of non-infectious origin without acute organ dysfunction; I12.9 Hypertensive chronic kidney disease with stage 1 through stage 4 chronic kidney disease, or unspecified chronic kidney disease; E11.22 Type 2 diabetes mellitus with diabetic chronic kidney disease; E11.65 Type 2 diabetes mellitus with hyperglycemia; N18.32 Chronic kidney disease, stage 3b; I48.0 Paroxysmal atrial fibrillation; Z20.822 Contact with and (suspected) exposure to COVID-19; N40.0 Benign prostatic hyperplasia without lower urinary tract symptoms; Z96.653 Presence of artificial knee joint, bilateral; E66.01 Morbid (severe) obesity due to excess calories; E11.40 Type 2 diabetes mellitus with diabetic neuropathy, unspecified; G89.29 Other chronic pain; G47.33 Obstructive sleep apnea (adult) (pediatric); G25.81 Restless legs syndrome; M10.9 Gout, unspecified; I25.119 Atherosclerotic heart disease of native coronary artery with unspecified angina pectoris; D64.9 Anemia, unspecified; Z68.33 Body mass index [BMI] 33.0-33.9, adult; Z88.8 Allergy status to other drugs, medicaments and biological substances; Z86.16 Personal history of COVID-19; Z98.49 Cataract extraction status, unspecified eye; Z82.49 Family history of ischemic heart disease and other diseases of the circulatory system; Z80.1 Family history of malignant neoplasm of trachea, bronchus and lung; Z80.51 Family history of malignant neoplasm of kidney; Z95.1 Presence of aortocoronary bypass graft

== ENCOUNTER 2022-12-06 14:48 | Emergency (ER) | payer MEDICARE ==
[~2022-12-06] VITALS: Ht 170.1 cm; Wt 102.1 kg
[~2022-12-06 14:48] MED LIST changes: +LOSARTAN POTAS100 M1 PO; +ZOLOFT50 MG PO
[2022-12-06 14:55] VITALS: BP 147/75
[2022-12-06 15:04] LABS: BASO % 0.5 % (0.0-1.0); EOS # 0.1 10*3/uL (0.0-0.4); EOS % 1.9 % (1.0-4.0); HEMATOCRIT 36.1 % (42.0-52.0); LYMPH # 1.7 10*3/uL (1.3-4.4); LYMPH % 28.1 % (27.0-41.0); MEAN CELL VOLUME 91.6 fl (80.0-94.0); MEAN CORPUSCULAR HGB 29.2 pg (27.0-31.0); MEAN CORPUSCULAR HGB CONC 31.9 g/dl (33.0-37.0); MEAN PLATELET VOLUME 10.2 fl (9.6-12.3); MONO # 0.5 10*3/uL (0.1-1.0); MONO % 8.1 % (3.0-9.0); NEUT # 3.6 10*3/uL (2.3-7.9); NEUT % 61.2 % (47.0-73.0); PLATELET COUNT AUTOMATED 145 10*3/uL (130-400); RED BLOOD COUNT 3.94 10*6/uL (4.50-5.90); RED CELL DISTRI WIDTH 13.4 % (0-14.5); WHITE BLOOD COUNT 5.9 10*3/uL (4.8-10.8)
[2022-12-06 15:14] LABS: ACT PARTIAL THROMBO TIME 28.2 SECONDS (20.0-32.1)
[2022-12-06 15:18] LABS: ALKALINE PHOSPHATASE 77 U/L (46-116); BUN 19 mg/dl (9-23); CHLORIDE 107 mmol/L (98-107); POTASSIUM 4.7 mmol/L (3.4-5.1); SGPT/ALT 12 U/L (10-49); TOTAL PROTEIN 6.2 gm/dL (6.0-8.0)
== END 2022-12-06 17:18 | disposition home or self-care (01) ==
LOC: ED 14:48
PROVIDERS: Emergency Medicine
DX: S09.90XA Unspecified injury of head, initial encounter (principal); R55 Syncope and collapse; I11.0 Hypertensive heart disease with heart failure; I50.9 Heart failure, unspecified; I25.10 Atherosclerotic heart disease of native coronary artery without angina pectoris; E78.00 Pure hypercholesterolemia, unspecified; E11.9 Type 2 diabetes mellitus without complications; Z88.8 Allergy status to other drugs, medicaments and biological substances; Z96.651 Presence of right artificial knee joint; Z96.652 Presence of left artificial knee joint; Z98.49 Cataract extraction status, unspecified eye; Z98.890 Other specified postprocedural states; W18.30XA Fall on same level, unspecified, initial encounter; Y93.89 Activity, other specified; Y92.009 Unspecified place in unspecified non-institutional (private) residence as the place of occurrence of the external cause; Y99.8 Other external cause status

== ENCOUNTER 2023-02-13 08:42 | Emergency (ER) | payer MEDICARE ==
[~2023-02-13] VITALS: Ht 170.1 cm; Wt 99.8 kg
[2023-02-13 08:53] VITALS: BP 161/86
[2023-02-13 09:08] LABS: BASO # 0.1 10*3/uL (0.0-0.1); BASO % 0.8 % (0.0-1.0); EOS # 0.2 10*3/uL (0.0-0.4); EOS % 3.7 % (1.0-4.0); HEMATOCRIT 37.3 % (42.0-52.0); LYMPH # 1.6 10*3/uL (1.3-4.4); LYMPH % 26.6 % (27.0-41.0); MEAN CELL VOLUME 90.8 fl (80.0-94.0); MEAN CORPUSCULAR HGB 28.7 pg (27.0-31.0); MEAN CORPUSCULAR HGB CONC 31.6 g/dl (33.0-37.0); MONO # 0.5 10*3/uL (0.1-1.0); MONO % 8.9 % (3.0-9.0); NEUT # 3.6 10*3/uL (2.3-7.9); NEUT % 59.8 % (47.0-73.0); PLATELET COUNT AUTOMATED 168 10*3/uL (130-400); RED BLOOD COUNT 4.11 10*6/uL (4.50-5.90); RED CELL DISTRI WIDTH 14.5 % (0-14.5); WHITE BLOOD COUNT 5.9 10*3/uL (4.8-10.8)
[2023-02-13 09:25] LABS: POTASSIUM 5.1 mmol/L (3.4-5.1); TOTAL PROTEIN 6.4 gm/dL (6.0-8.0)
[2023-02-13 09:51] LABS: BILIRUBIN Negative (Negative); BLOOD Negative (Negative); CLARITY Clear (Clear); COLOR Yellow (Yellow); GLUCOSE Negative (Negative); KETONE Negative (Negative); LEUKO ESTERASE 1+ (Negative); NITRITE Negative (Negative); PH 6.5 (4.5-8.0); SPECIFIC GRAVITY 1.025 (1.001-1.030)
[2023-02-13 10:04] LABS: BACTERIA TRACE; MUCOUS TRACE; WBC 16-20 wbc/hpf (0-5)
[2023-02-13] MEDS ORDERED: OMNICEF300 MG PO (10:23)
[2023-02-13] MEDS ORDERED: ROPINIROLE HYDRO3 MG PO (10:23)
== END 2023-02-13 10:42 | disposition home or self-care (01) ==
LOC: ED 08:42
PROVIDERS: Internal Medicine
DX: N39.0 Urinary tract infection, site not specified (principal); I50.9 Heart failure, unspecified; Z86.73 Personal history of transient ischemic attack (TIA), and cerebral infarction without residual deficits; I11.0 Hypertensive heart disease with heart failure; E78.00 Pure hypercholesterolemia, unspecified; M10.9 Gout, unspecified; E11.9 Type 2 diabetes mellitus without complications; Z98.42 Cataract extraction status, left eye; Z98.41 Cataract extraction status, right eye; Z88.8 Allergy status to other drugs, medicaments and biological substances; Z96.653 Presence of artificial knee joint, bilateral; Z98.890 Other specified postprocedural states

== ENCOUNTER 2023-08-24 14:18 | Emergency (ER) | payer MEDICARE ==
[~2023-08-24] VITALS: Wt 99.8 kg
[~2023-08-24 14:18] MED LIST changes: +OMNICEF300 MG PO; +ROPINIROLE HYDRO3 MG PO
[2023-08-24 15:20] LABS: BASO % 0.6 % (0.0-1.0); EOS # 0.2 10*3/uL (0.0-0.4); EOS % 4.6 % (1.0-4.0); HEMATOCRIT 37.6 % (42.0-52.0); LYMPH # 1.8 10*3/uL (1.3-4.4); LYMPH % 33.3 % (27.0-41.0); MEAN CORPUSCULAR HGB 29.1 pg (27.0-31.0); MEAN CORPUSCULAR HGB CONC 31.9 g/dl (33.0-37.0); MEAN PLATELET VOLUME 10.9 fl (9.6-12.3); MONO # 0.6 10*3/uL (0.1-1.0); MONO % 10.5 % (3.0-9.0); NEUT # 2.7 10*3/uL (2.3-7.9); NEUT % 50.8 % (47.0-73.0); PLATELET COUNT AUTOMATED 176 10*3/uL (130-400); RED BLOOD COUNT 4.13 10*6/uL (4.50-5.90); RED CELL DISTRI WIDTH 14.1 % (0-14.5); WHITE BLOOD COUNT 5.3 10*3/uL (4.8-10.8)
[2023-08-24 15:50] LABS: ALKALINE PHOSPHATASE 95 U/L (46-116); BUN 24 mg/dl (9-23); CHLORIDE 109 mmol/L (98-107); POTASSIUM 4.8 mmol/L (3.4-5.1); SGPT/ALT 27 U/L (5-49); TOTAL PROTEIN 6.7 gm/dL (6.0-8.0)
[2023-08-24 16:00] LABS: ACT PARTIAL THROMBO TIME 31.1 SECONDS (20.0-32.1); INTERNATIONAL NORM RATIO 1.1 (2.0-3.5)
[2023-08-24 16:26] VITALS: BP 134/56
[2023-08-24] MEDS ORDERED: PREDNISONE20 M1 PO (17:11)
[2023-08-24] MEDS ORDERED: AVPAK AZITHROM250 M1 PO (17:11)
== END 2023-08-24 17:23 | disposition home or self-care (01) ==
LOC: ED 14:18
PROVIDERS: Nurse Practitioner Family
DX: J40 Bronchitis, not specified as acute or chronic (principal); Z88.8 Allergy status to other drugs, medicaments and biological substances; D64.9 Anemia, unspecified; I25.10 Atherosclerotic heart disease of native coronary artery without angina pectoris; F32.A Depression, unspecified; E11.22 Type 2 diabetes mellitus with diabetic chronic kidney disease; N18.30 Chronic kidney disease, stage 3 unspecified; E11.40 Type 2 diabetes mellitus with diabetic neuropathy, unspecified; K21.9 Gastro-esophageal reflux disease without esophagitis; I50.9 Heart failure, unspecified; I13.0 Hypertensive heart and chronic kidney disease with heart failure and stage 1 through stage 4 chronic kidney disease, or unspecified chronic kidney disease; N18.9 Chronic kidney disease, unspecified; M10.9 Gout, unspecified; E78.00 Pure hypercholesterolemia, unspecified; E11.65 Type 2 diabetes mellitus with hyperglycemia; E78.5 Hyperlipidemia, unspecified; Z96.653 Presence of artificial knee joint, bilateral; Z95.5 Presence of coronary angioplasty implant and graft; Z98.890 Other specified postprocedural states; Z86.73 Personal history of transient ischemic attack (TIA), and cerebral infarction without residual deficits

== ENCOUNTER 2023-09-06 18:47 | Emergency (ER) | payer MEDICARE ==
[~2023-09-06] VITALS: Ht 167.6 cm; Wt 99.8 kg
[~2023-09-06 18:47] MED LIST changes: +AVPAK AZITHROM250 M1 PO; +PREDNISONE20 M1 PO
[2023-09-06 19:28] VITALS: BP 119/68
[2023-09-06] MEDS ORDERED: ACETAMINOPHEN500 M4 PO (19:32)
[2023-09-06] MEDS ORDERED: LOSARTAN POTAS100 M1 PO (19:33)
[2023-09-06] MEDS ORDERED: CYMBALTA60 MG PO (19:34)
[2023-09-06] MEDS ORDERED: MULTIPLE VITAM1 EAC2 PO (19:34)
[2023-09-06] MEDS ORDERED: VITAMIN D325 MCG PO (19:35)
[2023-09-06] MEDS ORDERED: CYCLOBENZAPRINE10 MG PO (23:02)
[2023-09-06] MEDS ORDERED: MELOXICAM10 MG PO (23:02)
== END 2023-09-06 23:21 | disposition home or self-care (01) ==
LOC: ED 18:47
DX: M54.50 Low back pain, unspecified (principal); I11.0 Hypertensive heart disease with heart failure; I25.10 Atherosclerotic heart disease of native coronary artery without angina pectoris; I50.9 Heart failure, unspecified; Z86.73 Personal history of transient ischemic attack (TIA), and cerebral infarction without residual deficits; M10.9 Gout, unspecified; E78.00 Pure hypercholesterolemia, unspecified; E11.9 Type 2 diabetes mellitus without complications; Z88.8 Allergy status to other drugs, medicaments and biological substances; Z96.653 Presence of artificial knee joint, bilateral; Z98.890 Other specified postprocedural states

== ENCOUNTER → 2023-11-21 | Outpatient (CLI) | payer MEDICARE ==
[~2023-11-21] MED LIST changes: +ACETAMINOPHEN500 M4 PO; +CYMBALTA60 MG PO; +MELOXICAM10 MG PO; +MULTIPLE VITAM1 EAC2 PO; +VITAMIN D325 MCG PO
[2023-11-21 10:34] LABS: BUN 21 mg/dl (9-23); CHLORIDE 106 mmol/L (98-107); POTASSIUM 4.3 mmol/L (3.4-5.1)
== END | disposition home or self-care (01) ==
LOC: LAB 10:02
PROVIDERS: ATTEND Internal Medicine Cardiovascular Disease
DX: I10 Essential (primary) hypertension (principal); R60.0 Localized edema; I48.0 Paroxysmal atrial fibrillation; R06.02 Shortness of breath

== ENCOUNTER → 2023-12-01 | Outpatient (CLI) | payer MEDICARE ==
[2023-12-01 11:35] LABS: BUN 25 mg/dl (9-23); CHLORIDE 109 mmol/L (98-107); POTASSIUM 4.9 mmol/L (3.4-5.1)
== END | disposition home or self-care (01) ==
LOC: LAB 10:55
PROVIDERS: ATTEND Internal Medicine Cardiovascular Disease
DX: I10 Essential (primary) hypertension (principal); I48.0 Paroxysmal atrial fibrillation; R06.02 Shortness of breath; R60.0 Localized edema

== ENCOUNTER 2024-02-28 13:58 | Emergency (ER) | payer MEDICARE ==
[~2024-02-28] VITALS: Ht 170.1 cm; Wt 99.8 kg
[2024-02-28 14:13] VITALS: BP 139/69
[2024-02-28] MEDS ORDERED: methylPREDNISolone sod succ 125 MG VIAL IM ONE (14:20)
[2024-02-28] MEDS ORDERED: Acetaminophen/Hydrocodone 5 MG/325 MG TABLET PO ONE (14:20)
[2024-02-28] MEDS ORDERED: HYDROCODONE-AC1 EAC1 PO (15:52)
== END 2024-02-28 16:33 | disposition home or self-care (01) ==
LOC: ED 13:58
DX: S39.012A Strain of muscle, fascia and tendon of lower back, initial encounter (principal); I48.91 Unspecified atrial fibrillation; E11.22 Type 2 diabetes mellitus with diabetic chronic kidney disease; I12.9 Hypertensive chronic kidney disease with stage 1 through stage 4 chronic kidney disease, or unspecified chronic kidney disease; N18.9 Chronic kidney disease, unspecified; I25.10 Atherosclerotic heart disease of native coronary artery without angina pectoris; Z87.442 Personal history of urinary calculi; Z88.8 Allergy status to other drugs, medicaments and biological substances; Z79.899 Other long term (current) drug therapy; Z79.82 Long term (current) use of aspirin; Z96.653 Presence of artificial knee joint, bilateral; Z98.890 Other specified postprocedural states; Z98.61 Coronary angioplasty status; Z86.73 Personal history of transient ischemic attack (TIA), and cerebral infarction without residual deficits; W18.39XA Other fall on same level, initial encounter; Y93.89 Activity, other specified; Y92.59 Other trade areas as the place of occurrence of the external cause; Y99.8 Other external cause status

== ENCOUNTER 2024-06-11 11:32 | Emergency (ER) | payer MEDICARE ==
[~2024-06-11] VITALS: Ht 172.7 cm; Wt 95.7 kg
[2024-06-11 11:52] VITALS: BP 141/66
[2024-06-11] MEDS ORDERED: Meclizine Hydrochloride 25 MG TAB PO ONE (11:55)
[2024-06-11] MEDS ORDERED: SODIUM CHLORIDE 0.9% 1,000 ML IV ONE (11:55)
[2024-06-11] MEDS ORDERED: DIAZEPAM 10 MG/2 ML SYR IV ONE (12:00)
[2024-06-11 12:11] LABS: BASO % 0.6 % (0.0-1.0); EOS # 0.1 10*3/uL (0.0-0.4); EOS % 1.5 % (1.0-4.0); HEMATOCRIT 36.6 % (42.0-52.0); LYMPH # 1.2 10*3/uL (1.3-4.4); LYMPH % 22.8 % (27.0-41.0); MEAN CELL VOLUME 91.5 fl (80.0-94.0); MEAN CORPUSCULAR HGB 28.3 pg (27.0-31.0); MEAN CORPUSCULAR HGB CONC 30.9 g/dl (33.0-37.0); MEAN PLATELET VOLUME 11.2 fl (9.6-12.3); MONO # 0.4 10*3/uL (0.1-1.0); MONO % 7.2 % (3.0-9.0); NEUT # 3.7 10*3/uL (2.3-7.9); NEUT % 67.7 % (47.0-73.0); PLATELET COUNT AUTOMATED 155 10*3/uL (130-400); WHITE BLOOD COUNT 5.5 10*3/uL (4.8-10.8)
[2024-06-11 12:21] LABS: ACT PARTIAL THROMBO TIME 29.2 SECONDS (20.0-32.1)
[2024-06-11 12:34] LABS: POTASSIUM 4.4 mmol/L (3.4-5.1); TOTAL PROTEIN 6.4 gm/dL (6.0-8.0)
[2024-06-11 13:19] LABS: BILIRUBIN Negative (Negative); BLOOD Negative (Negative); CLARITY Clear (Clear); COLOR Yellow (Yellow); GLUCOSE 3+ (Negative); KETONE Negative (Negative); LEUKO ESTERASE Negative (Negative); NITRITE Negative (Negative); SPECIFIC GRAVITY 1.025 (1.001-1.030); UROBILINOGEN 0.2 E.U./dl (0.0-1.0)
[2024-06-11 13:40] LABS: RBC 0-2 rbc/hpf (0-2)
[2024-06-11] MEDS ORDERED: ANTIVERT25 M2 PO (14:56)
== END 2024-06-11 15:11 | disposition home or self-care (01) ==
LOC: ED 11:32
PROVIDERS: Internal Medicine
DX: R42 Dizziness and giddiness (principal); E86.0 Dehydration; R11.2 Nausea with vomiting, unspecified; Z88.8 Allergy status to other drugs, medicaments and biological substances; Z96.653 Presence of artificial knee joint, bilateral; Z95.5 Presence of coronary angioplasty implant and graft; Z98.890 Other specified postprocedural states; I11.0 Hypertensive heart disease with heart failure; Z86.73 Personal history of transient ischemic attack (TIA), and cerebral infarction without residual deficits; I25.10 Atherosclerotic heart disease of native coronary artery without angina pectoris; I50.9 Heart failure, unspecified; M10.9 Gout, unspecified; E78.00 Pure hypercholesterolemia, unspecified; E11.9 Type 2 diabetes mellitus without complications

== ENCOUNTER 2024-09-08 15:51 | Observation (INO) | payer MEDICARE ==
[~2024-09-08] VITALS: Ht 170.2 cm; Wt 88.6 kg
[~2024-09-08 15:51] MED LIST changes: +ANTIVERT25 M2 PO
[2024-09-08 16:06] VITALS: BP 96/58
[2024-09-08] MEDS ORDERED: IRON325 M1 PO (16:18)
[2024-09-08] MEDS ORDERED: COZAAR25 M1 PO (16:18)
[2024-09-08] MEDS ORDERED: NITROGLYCERIN0.4 MG SL (16:18)
[2024-09-08] MEDS ORDERED: METFORMIN XR500 MG PO (16:19)
[2024-09-08] MEDS ORDERED: ELIQUIS5 M1 PO (16:20)
[2024-09-08] MEDS ORDERED: ASPIRIN81 M1 PO (16:20)
[2024-09-08] MEDS ORDERED: ARNUITY ELLIPT50 MCG INH (16:21)
[2024-09-08] MEDS ORDERED: PANTOPRAZOLE SO40 MG PO (16:21)
[2024-09-08] MEDS ORDERED: LYRICA75 M1 PO (16:22)
[2024-09-08] MEDS ORDERED: KLOR-CON M2020 ME1 PO (16:22)
[2024-09-08] MEDS ORDERED: TAMSULOSIN HCL0.4 MG PO (16:23)
[2024-09-08] MEDS ORDERED: OXYCODONE HCL5 MG PO (16:24)
[2024-09-08] MEDS ORDERED: JARDIANCE10 MG PO (16:24)
[2024-09-08] MEDS ORDERED: DOXYCYCLINE HY100 M3 PO (16:24)
[2024-09-08 16:26] LABS: BASO # 0.1 10*3/uL (0.0-0.1); BASO % 0.7 % (0.0-1.0); EOS # 0.1 10*3/uL (0.0-0.4); EOS % 1.2 % (1.0-4.0); HEMATOCRIT 39.9 % (42.0-52.0); MEAN CELL VOLUME 89.3 fl (80.0-94.0); MEAN CORPUSCULAR HGB 28.4 pg (27.0-31.0); MEAN CORPUSCULAR HGB CONC 31.8 g/dl (33.0-37.0); MEAN PLATELET VOLUME 11.6 fl (9.6-12.3); MONO # 0.7 10*3/uL (0.1-1.0); MONO % 8.5 % (3.0-9.0); NEUT # 5.6 10*3/uL (2.3-7.9); NEUT % 68.2 % (47.0-73.0); PLATELET COUNT AUTOMATED 271 10*3/uL (130-400); RED BLOOD COUNT 4.47 10*6/uL (4.50-5.90); RED CELL DISTRI WIDTH 15.2 % (0-14.5); WHITE BLOOD COUNT 8.2 10*3/uL (4.8-10.8)
[2024-09-08 16:41] LABS: ACT PARTIAL THROMBO TIME 30.7 SECONDS (20.0-32.1)
[2024-09-08 16:42] VITALS: BP 104/60
[2024-09-08 16:42] LABS: ALKALINE PHOSPHATASE 132 U/L (46-116); BUN 37 mg/dl (9-23); CHLORIDE 104 mmol/L (98-107); POTASSIUM 5.1 mmol/L (3.4-5.1); SGPT/ALT 15 U/L (5-49); TOTAL PROTEIN 6.8 gm/dL (6.0-8.0)
[2024-09-08] MEDS ORDERED: SODIUM CHLORIDE 0.9% 1,000 ML IV ONE ×2 (16:45→22:25)
[2024-09-08 16:51] LABS: ETHYL ALCOHOL < 3.0 mg/dl (<3)
[2024-09-08 18:53] LABS: BILIRUBIN Negative (Negative); BLOOD 1+ (Negative); CLARITY Clear (Clear); COLOR Yellow (Yellow); GLUCOSE 3+ (Negative); KETONE Trace (Negative); LEUKO ESTERASE Negative (Negative); NITRITE Negative (Negative); SPECIFIC GRAVITY 1.025 (1.001-1.030); UROBILINOGEN 0.2 E.U./dl (0.0-1.0)
[2024-09-08 19:01] LABS: URINE AMPHETAMINES Negative (1000ng/ml); URINE BARBITURATES Negative (200ng/ml); URINE BENZODIAZEPINES Negative (200ng/ml); URINE CANNABINOIDS (THC) Negative (50ng/ml); URINE COCAINE Negative (300ng/ml); URINE METHADONE Negative (300ng/ml); URINE OPIATES Negative (300ng/ml); URINE PHENCYCLIDINE Negative (25ng/ml)
[2024-09-08] MEDS ORDERED: MAGNESIUM OXIDE 400 MG TAB PO ONE (19:05)
[2024-09-08 19:06] LABS: BACTERIA TRACE; EPITHELIAL CELLS 0-2; WBC 0-2 wbc/hpf (0-5)
[2024-09-08 19:10] VITALS: BP 120/66
[2024-09-08] MEDS ORDERED: ACETAMINOPHEN 325 MG TAB PO PRN (20:00)
[2024-09-08] MEDS ORDERED: Ondansetron Hydrochloride 4 MG/2 ML VIAL IV PRN (20:00)
[2024-09-08] MEDS ORDERED: OXYCODONE HCL (IR) 5 MG TAB PO PRN (22:35)
[2024-09-08] MEDS ORDERED: PREGABALIN 75 MG CAP PO SCH (22:46)
[2024-09-08] MEDS ORDERED: MAGNESIUM SULFATE 50 ML IV ONE (23:15)
[2024-09-08 23:30] VITALS: BP 120/70
[2024-09-09] MEDS ORDERED: Sulfamethoxazole/Trimethopri 1 TAB TAB PO ONE ×2 (01:20→01:45)
[2024-09-09 04:14] LABS: BASO % 0.7 % (0.0-1.0); EOS # 0.1 10*3/uL (0.0-0.4); EOS % 1.6 % (1.0-4.0); HEMATOCRIT 36.7 % (42.0-52.0); MEAN CELL VOLUME 89.3 fl (80.0-94.0); MEAN CORPUSCULAR HGB 28.5 pg (27.0-31.0); MEAN CORPUSCULAR HGB CONC 31.9 g/dl (33.0-37.0); MONO # 0.5 10*3/uL (0.1-1.0); MONO % 7.8 % (3.0-9.0); NEUT # 3.5 10*3/uL (2.3-7.9); NEUT % 57.2 % (47.0-73.0); PLATELET COUNT AUTOMATED 207 10*3/uL (130-400); RED BLOOD COUNT 4.11 10*6/uL (4.50-5.90); RED CELL DISTRI WIDTH 15.2 % (0-14.5); WHITE BLOOD COUNT 6.1 10*3/uL (4.8-10.8)
[2024-09-09 04:40] LABS: POTASSIUM 4.4 mmol/L (3.4-5.1); TOTAL PROTEIN 5.9 gm/dL (6.0-8.0)
[2024-09-09] MEDS ORDERED: Pantoprazole Sodium 40 MG TAB PO SCH (06:00)
[2024-09-09] MEDS ORDERED: BUDESONIDE 0.5 MG AMP NEB SCH (06:55)
[2024-09-09 08:00] VITALS: BP 125/75
[2024-09-09] MEDS ORDERED: EMPAGLIFLOZIN 10 MG TABLET PO SCH (10:00)
[2024-09-09] MEDS ORDERED: ALLOPURINOL 300 MG TAB PO SCH (10:00)
[2024-09-09] MEDS ORDERED: ATORVASTATIN CALCIUM 80 MG TAB PO SCH (10:00)
[2024-09-09] MEDS ORDERED: Duloxetine Hydrochloride 60 MG CAP PO SCH (10:00)
[2024-09-09] MEDS ORDERED: APIXABAN 5 MG TAB PO SCH (10:00)
[2024-09-09] MEDS ORDERED: Vitamin D 1,000 IU TAB (25 MCG) PO SCH (10:00)
[2024-09-09] MEDS ORDERED: ASPIRIN ENTERIC COATED 81 MG TAB PO SCH (10:00)
[2024-09-09] MEDS ORDERED: FERROUS SULFATE 325 MG TAB PO SCH (10:00)
[2024-09-09 12:00] VITALS: BP 101/58
[2024-09-09] MEDS ORDERED: Tamsulosin Hydrochloride 0.4 MG CAP PO SCH (22:00)
== END 2024-09-09 14:32 | disposition home or self-care (01) ==
LOC: ED 15:51 → EDHOLD 19:03 → 4E 19:03
PROVIDERS: Internal Medicine; Student in an Organized Health Care Education/Training Program; ADMIT Internal Medicine; ATTEND Internal Medicine
DX: E86.1 Hypovolemia (principal); Z20.822 Contact with and (suspected) exposure to COVID-19; R19.7 Diarrhea, unspecified; R42 Dizziness and giddiness; E86.0 Dehydration; I95.1 Orthostatic hypotension; R00.1 Bradycardia, unspecified; N17.0 Acute kidney failure with tubular necrosis; E87.1 Hypo-osmolality and hyponatremia; D64.9 Anemia, unspecified; E83.42 Hypomagnesemia; R74.8 Abnormal levels of other serum enzymes; E44.1 Mild protein-calorie malnutrition; E11.65 Type 2 diabetes mellitus with hyperglycemia; E11.22 Type 2 diabetes mellitus with diabetic chronic kidney disease; N18.32 Chronic kidney disease, stage 3b; I48.0 Paroxysmal atrial fibrillation; N40.0 Benign prostatic hyperplasia without lower urinary tract symptoms; I25.10 Atherosclerotic heart disease of native coronary artery without angina pectoris; R39.11 Hesitancy of micturition; K21.9 Gastro-esophageal reflux disease without esophagitis; F33.41 Major depressive disorder, recurrent, in partial remission; E11.42 Type 2 diabetes mellitus with diabetic polyneuropathy; Z95.1 Presence of aortocoronary bypass graft; Z79.82 Long term (current) use of aspirin; Z79.4 Long term (current) use of insulin; Z79.899 Other long term (current) drug therapy

== ENCOUNTER 2025-04-17 11:20 | Inpatient (IN) | payer MEDICARE ==
[~2025-04-17] VITALS: Ht 170 cm; Wt 92.2 kg
[~2025-04-17 11:20] MED LIST changes: +ASPIRIN81 M1 PO; +COZAAR25 M1 PO; +DOXYCYCLINE HY100 M3 PO; +JARDIANCE10 MG PO; +JARDIANCE25 MG PO; +LYRICA150 M1 PO; +LYRICA75 M1 PO; +METFORMIN XR500 MG PO; +OXYCODONE HCL5 MG PO; +OXYGEN NAS; +TAMIFLU 75MG CA75 MG PO; +Tamiflu 75MG Capsule PO
[2025-04-17 11:29] VITALS: BP 129/68
[2025-04-17] MEDS ORDERED: VENT7GM INH (11:58)
[2025-04-17 12:00] VITALS: BP 132/56
[2025-04-17 12:00] LABS: BASO % 0.3 % (0.0-1.0); EOS # 0.1 10*3/uL (0.0-0.4); EOS % 3.3 % (1.0-4.0); MEAN CELL VOLUME 96.2 fl (80.0-94.0); MEAN CORPUSCULAR HGB 29.2 pg (27.0-31.0); MEAN CORPUSCULAR HGB CONC 30.3 g/dl (33.0-37.0); MEAN PLATELET VOLUME 11.2 fl (9.6-12.3); MONO # 0.3 10*3/uL (0.1-1.0); MONO % 7.4 % (3.0-9.0); NEUT # 2.3 10*3/uL (2.3-7.9); NEUT % 64.5 % (47.0-73.0); PLATELET COUNT AUTOMATED 107 10*3/uL (130-400); RED BLOOD COUNT 3.12 10*6/uL (4.50-5.90); RED CELL DISTRI WIDTH 18.5 % (0-14.5); WHITE BLOOD COUNT 3.6 10*3/uL (4.8-10.8)
[2025-04-17] MEDS ORDERED: BIOFREEZE85 GM T (12:00)
[2025-04-17] MEDS ORDERED: FEROSUL325 MG PO (12:01)
[2025-04-17] MEDS ORDERED: BENZONATATE100 M1 PO (12:02)
[2025-04-17] MEDS ORDERED: POTASSIUM CHLO20 ME4 PO (12:03)
[2025-04-17] MEDS ORDERED: VITAMIN C500 M4 PO (12:05)
[2025-04-17] MEDS ORDERED: [UNRECOGNIZED DRUG - OTHER] T (12:09)
[2025-04-17] MEDS ORDERED: DAILY VITE1 EACH PO (12:10)
[2025-04-17] MEDS ORDERED: CIPROFLOX-DEXA7.5 ML OT (12:11)
[2025-04-17 12:22] LABS: POTASSIUM 4.4 mmol/L (3.4-5.1)
[2025-04-17] MEDS ORDERED: FUROSEMIDE 40 MG/4 ML VIAL IV ONE (12:30)
[2025-04-17] MEDS ORDERED: BISACODYL 5 MG TAB PO PRN (14:30)
[2025-04-17] MEDS ORDERED: Ondansetron Hydrochloride 4 MG/2 ML VIAL IV PRN (14:30)
[2025-04-17] MEDS ORDERED: Acetaminophen/Hydrocodone 5 MG/325 MG TABLET PO PRN (14:30)
[2025-04-17] MEDS ORDERED: BISACODYL 10 MG SUPP R PRN (14:30)
[2025-04-17] MEDS ORDERED: ACETAMINOPHEN 650 MG SUPP R PRN (14:30)
[2025-04-17] MEDS ORDERED: Magnesium Hydroxide 30 ML UDC PO PRN (14:30)
[2025-04-17] MEDS ORDERED: ACETAMINOPHEN 325 MG TAB PO PRN (14:30)
[2025-04-17 16:00] VITALS: BP 108/62
[2025-04-17 16:10] VITALS: BP 108/62
[2025-04-17] MEDS ORDERED: DEXTROSE 50% 25 GM/50 ML VIAL IV PRN (16:15)
[2025-04-17] MEDS ORDERED: INSULIN LISPRO 1 UNIT/0.01 ML SQ SCH (16:30)
[2025-04-17] MEDS ORDERED: Albuterol Sulfate 2.5 MG/3 ML VIAL NEB PRN (18:50)
[2025-04-17] MEDS ORDERED: BENZONATATE 100 MG CAP PO PRN (18:50)
[2025-04-17 20:00] VITALS: BP 98/53
[2025-04-17] MEDS ORDERED: PREGABALIN 75 MG CAP PO SCH (22:00)
[2025-04-17] MEDS ORDERED: APIXABAN 5 MG TAB PO SCH (22:00)
[2025-04-18] VITALS: BP 92/48
[2025-04-18 06:36] LABS: EOS # 0.1 10*3/uL (0.0-0.4); EOS % 2.9 % (1.0-4.0); HEMATOCRIT 31.7 % (42.0-52.0); MEAN CELL VOLUME 96.6 fl (80.0-94.0); MEAN PLATELET VOLUME 11.5 fl (9.6-12.3); MONO # 0.4 10*3/uL (0.1-1.0); MONO % 9.1 % (3.0-9.0); NEUT # 2.2 10*3/uL (2.3-7.9); NEUT % 57.1 % (47.0-73.0); PLATELET COUNT AUTOMATED 112 10*3/uL (130-400); RED BLOOD COUNT 3.28 10*6/uL (4.50-5.90); RED CELL DISTRI WIDTH 18.4 % (0-14.5); WHITE BLOOD COUNT 3.9 10*3/uL (4.8-10.8)
[2025-04-18 07:09] LABS: POTASSIUM 3.8 mmol/L (3.4-5.1); TOTAL PROTEIN 5.8 gm/dL (6.0-8.0)
[2025-04-18] MEDS ORDERED: Pantoprazole Sodium 40 MG TAB PO SCH (07:30)
[2025-04-18 08:00] VITALS: BP 99/68
[2025-04-18] MEDS ORDERED: ATORVASTATIN CALCIUM 80 MG TAB PO SCH (10:00)
[2025-04-18] MEDS ORDERED: EMPAGLIFLOZIN 25 MG TABLET PO SCH (10:00)
[2025-04-18] MEDS ORDERED: ASCORBIC ACID 500 MG TAB PO SCH (10:00)
[2025-04-18] MEDS ORDERED: FUROSEMIDE 40 MG/4 ML VIAL IV SCH ×2 (10:00)
[2025-04-18] MEDS ORDERED: DULoxetine Hydrochloride 60 MG CAP PO SCH (10:00)
[2025-04-18] MEDS ORDERED: Losartan Potassium 25 MG TAB PO SCH (10:00)
[2025-04-18] MEDS ORDERED: ASPIRIN ENTERIC COATED 81 MG TAB PO SCH (10:00)
[2025-04-18] MEDS ORDERED: ALLOPURINOL 300 MG TAB PO SCH (10:00)
[2025-04-18] MEDS ORDERED: FERROUS SULFATE 325 MG TAB PO SCH (10:00)
[2025-04-18] MEDS ORDERED: POTASSIUM CHLORIDE 20 MEQ TAB PO SCH (10:00)
[2025-04-18 12:00] VITALS: BP 98/60
[2025-04-18 16:00] VITALS: BP 118/70
[2025-04-18 20:00] VITALS: BP 121/62
[2025-04-19] VITALS: BP 114/64
[2025-04-19 06:28] LABS: HEMATOCRIT 29.9 % (42.0-52.0); MEAN CELL VOLUME 94.6 fl (80.0-94.0); MEAN CORPUSCULAR HGB 29.4 pg (27.0-31.0); MEAN CORPUSCULAR HGB CONC 31.1 g/dl (33.0-37.0); MEAN PLATELET VOLUME 11.5 fl (9.6-12.3); PLATELET COUNT AUTOMATED 101 10*3/uL (130-400); RED BLOOD COUNT 3.16 10*6/uL (4.50-5.90); RED CELL DISTRI WIDTH 18.4 % (0-14.5); WHITE BLOOD COUNT 3.4 10*3/uL (4.8-10.8)
[2025-04-19 06:52] LABS: POTASSIUM 4.1 mmol/L (3.4-5.1); TOTAL PROTEIN 5.8 gm/dL (6.0-8.0)
[2025-04-19 08:00] VITALS: BP 125/67
[2025-04-19 08:50] LABS: MANUAL DIFF REFLEX YES
[2025-04-19 08:55] LABS: BASOPHILS 1 % (0-1); TOTAL CELLS COUNTED 100 #CELLS
[2025-04-19 08:56] LABS: OVALOCYTES FEW; PLATELET SUFFICIENCY LOW (NORMAL); POLYCHROMASIA SLIGHT
[2025-04-19 12:00] VITALS: BP 109/59
[2025-04-19 16:00] VITALS: BP 106/47
[2025-04-19 20:00] VITALS: BP 100/62
[2025-04-20] VITALS: BP 109/66
[2025-04-20 07:45] VITALS: BP 102/67
[2025-04-20 09:19] LABS: POTASSIUM 3.6 mmol/L (3.4-5.1); TOTAL PROTEIN 6.3 gm/dL (6.0-8.0)
[2025-04-20 10:00] VITALS: BP 132/56
[2025-04-20 12:00] VITALS: BP 114/59
[2025-04-20 16:00] VITALS: BP 120/60
[2025-04-20 20:00] VITALS: BP 108/51
[2025-04-21] VITALS: BP 116/72
[2025-04-21 06:29] LABS: POTASSIUM 3.8 mmol/L (3.4-5.1)
[2025-04-21 08:00] VITALS: BP 127/74
[2025-04-21] MEDS ORDERED: LASIX20 MG PO (11:56)
== END 2025-04-21 12:40 | disposition home or self-care (01) | DRG 291 ==
LOC: ED 11:20 → EDHOLD 14:09 → 5E 14:09
PROVIDERS: Nurse Practitioner Family; ADMIT Internal Medicine; ATTEND Internal Medicine
DX: I13.0 Hypertensive heart and chronic kidney disease with heart failure and stage 1 through stage 4 chronic kidney disease, or unspecified chronic kidney disease (principal); I50.23 Acute on chronic systolic (congestive) heart failure; D61.818 Other pancytopenia; E44.0 Moderate protein-calorie malnutrition; E11.65 Type 2 diabetes mellitus with hyperglycemia; M10.9 Gout, unspecified; N18.32 Chronic kidney disease, stage 3b; I25.10 Atherosclerotic heart disease of native coronary artery without angina pectoris; E78.00 Pure hypercholesterolemia, unspecified; F43.10 Post-traumatic stress disorder, unspecified; N40.0 Benign prostatic hyperplasia without lower urinary tract symptoms; K21.9 Gastro-esophageal reflux disease without esophagitis; G25.81 Restless legs syndrome; F32.9 Major depressive disorder, single episode, unspecified; I48.0 Paroxysmal atrial fibrillation; E80.6 Other disorders of bilirubin metabolism; E11.42 Type 2 diabetes mellitus with diabetic polyneuropathy; G47.33 Obstructive sleep apnea (adult) (pediatric); Z79.01 Long term (current) use of anticoagulants; Z98.41 Cataract extraction status, right eye; Z98.42 Cataract extraction status, left eye; Z86.73 Personal history of transient ischemic attack (TIA), and cerebral infarction without residual deficits; Z95.1 Presence of aortocoronary bypass graft; Z83.3 Family history of diabetes mellitus; Z82.49 Family history of ischemic heart disease and other diseases of the circulatory system; Z80.1 Family history of malignant neoplasm of trachea, bronchus and lung; Z85.528 Personal history of other malignant neoplasm of kidney; Z88.8 Allergy status to other drugs, medicaments and biological substances; Z79.4 Long term (current) use of insulin; Z68.32 Body mass index [BMI] 32.0-32.9, adult

== ENCOUNTER 2025-05-23 10:13 | Emergency (ER) | payer MEDICARE ==
[~2025-05-23] VITALS: Ht 170.1 cm; Wt 96.2 kg
[~2025-05-23 10:13] MED LIST changes: +BENZONATATE100 M1 PO; +BIOFREEZE85 GM T; +CIPROFLOX-DEXA7.5 ML OT; +DAILY VITE1 EACH PO; +FEROSUL325 MG PO; +KLOR-CON M1010 ME1 PO; +MAGNESIUM OXID400 MG PO; +POTASSIUM CHLO20 ME4 PO; +VENT7GM INH; +VITAMIN C500 M4 PO; +[UNRECOGNIZED DRUG - OTHER] T
[2025-05-23 10:29] VITALS: BP 128/72
[2025-05-23] MEDS ORDERED: IOHEXOL 300 MG/ML 100 ML VIAL IV ONE (11:30)
[2025-05-23 11:36] LABS: BASO # 0.1 10*3/uL (0.0-0.1); BASO % 0.8 % (0.0-1.0); EOS # 0.3 10*3/uL (0.0-0.4); EOS % 3.8 % (1.0-4.0); MEAN CELL VOLUME 93.8 fl (80.0-94.0); MEAN CORPUSCULAR HGB 29.9 pg (27.0-31.0); MEAN PLATELET VOLUME 11.2 fl (9.6-12.3); MONO # 0.6 10*3/uL (0.1-1.0); MONO % 8.5 % (3.0-9.0); NEUT # 4.2 10*3/uL (2.3-7.9); NEUT % 64.0 % (47.0-73.0); NUCLEATED RED BLOOD CELL 0.0 % (0.0-0.0); NUCLEATED RED BLOOD CELL 0.0 10*3/uL (0.0-0.0); PLATELET COUNT AUTOMATED 180 10*3/uL (130-400); RED CELL DISTRI WIDTH 16.1 % (0-14.5)
[2025-05-23 11:57] LABS: BUN 36.0 mg/dl (9-23); SGPT/ALT 8.0 U/L (5-49)
[2025-05-23 12:09] LABS: BILIRUBIN Negative (Negative); BLOOD Negative (Negative); CLARITY Cloudy (Clear); COLOR Yellow (Yellow); KETONE Negative (Negative); LEUKO ESTERASE 3+ (Negative); NITRITE Negative (Negative); PH 6.0 (4.5-8.0); SPECIFIC GRAVITY <= 1.005 (1.001-1.030); UROBILINOGEN 0.2 E.U./dl (0.0-1.0)
[2025-05-23 12:26] LABS: WBC TNTC wbc/hpf (0-5); YEAST 1+
[2025-05-23] MEDS ORDERED: MAGNESIUM CITRATE 296 ML BOT PO ONE (14:05)
[2025-05-23] MEDS ORDERED: VIBRAMYCIN100 MG PO (15:05)
== END 2025-05-23 15:00 | disposition home or self-care (01) ==
LOC: ED 10:13
PROVIDERS: Nurse Practitioner Family
DX: K59.00 Constipation, unspecified (principal); N39.0 Urinary tract infection, site not specified; I48.91 Unspecified atrial fibrillation; I10 Essential (primary) hypertension; E78.5 Hyperlipidemia, unspecified; K21.9 Gastro-esophageal reflux disease without esophagitis; E11.40 Type 2 diabetes mellitus with diabetic neuropathy, unspecified; Z88.8 Allergy status to other drugs, medicaments and biological substances; Z79.899 Other long term (current) drug therapy; Z79.82 Long term (current) use of aspirin; Z79.84 Long term (current) use of oral hypoglycemic drugs; Z96.653 Presence of artificial knee joint, bilateral; Z98.890 Other specified postprocedural states